=== PATIENT | male | born 1950 | race Caucasian/White ===

== ENCOUNTER 2023-12-16 13:58 | Inpatient (IN) | payer MEDICAID, SELFPAY ==
--- NOTE | ~2023-12-16 | CT_ITS ---
EXAMINATION: CT ABDOMEN AND PELVIS WITHOUT CONTRAST CLINICAL INFORMATION: Left lower quadrant pain and rectal bleeding COMPARISON: Radius head CT from 2008 TECHNIQUE: Multidetector volumetric imaging was performed from the superior aspect of the liver through the pubic symphysis. Sagittal and coronal reformatted images were obtained on the technologist's workstation. This CT examination was performed using dose optimization techniques as appropriate, variously including the following: *Automated exposure control *Adjustment of mA and/or kV according to patient size (this includes techniques or standardized protocols for targeted exams where dose is matched to indication/reason for exam; i.e. extremities or head) *Use of iterative reconstruction technique DLP: 516 mGy-cm FINDINGS: LUNG BASES: The visualized lung bases are unremarkable. LIVER, GALLBLADDER, AND BILIARY TREE: The liver is normal in size, shape, and attenuation. No focal hepatic lesion or biliary ductal dilatation is present. The gallbladder is unremarkable with no evidence of radiopaque gallstones, gallbladder wall thickening, or obvious pericholecystic inflammatory changes. PANCREAS: Unremarkable. SPLEEN: Unremarkable. ADRENAL GLANDS: Unremarkable. KIDNEYS AND URETERS: The kidneys are normal in size, shape, and attenuation. No hydronephrosis, hydroureter, or calculi seen. There is question of a left renal versus retroperitoneal cyst adjacent to the lower pole the left kidney and left psoas muscle. This measures 3.3 x 5.7 x 7 cm. This is increased in size from [address] There are small peripelvic cysts in the left kidney. The right kidney is normal. No perinephric stranding. BLADDER: Unremarkable. GASTROINTESTINAL TRACT: There are postsurgical changes to the left colon. There is abnormal wall thickening suggestive of apple core appearance in the mid transverse colon. Appearance is concerning for neoplasm. There is some stranding of the surrounding fat and small pericolic lymph nodes. There is constipation. The appendix is not seen and may have been removed. Small bowel is normal. ABDOMINAL WALL: Previous ventral hernia repair with mesh. LYMPH NODES: Normal. VASCULAR: IVC filter. PELVIC VISCERA: Unremarkable. OSSEOUS STRUCTURES: Degenerative changes of the spine. 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 CT/CT abdomen pelvis wo IV con IMPRESSION: Applecore lesion in the mid transverse colon concerning for neoplasm and stranding of the adjacent fat and small lymph nodes. Constipation. 3.5 x 6 x 7 cm left retroperitoneal cyst versus left renal cyst. This is increased in size from 2 cm from 2009 exam. Fleischner guidelines were followed.
--- NOTE | 2023-12-16 14:11 | ED.GENADULT ---
HPI - General Adult General Chief complaint: General Medical Stated complaint: Colon Mass Hemorrhoids Time Seen by Provider: 12/16/23 18:29 Source: patient Mode of arrival: ambulatory Limitations: no limitations History of Present Illness HPI narrative: Patient is 72 years old with history of colon cancer status post resection and chemotherapy in 2005 cleared by Oncology for last few week comes here for black stool off and on for last few days patient had colonoscopy on 11/28/23 at [place] which showed large nodular mass in proximal transverse colon pathology showed invasive adenocarcinoma patient comes here for further evaluation as he been feeling weak and dizzy lab workup done showed hemoglobin of 6.9 Related Data Home Medications Medication Instructions Recorded Confirmed omeprazole 20 mg tablet,delayed 20 mg PO DAILY PRN gi upset 12/16/23 12/16/23 release polyethylene glycol 3350 17 17 g PO DAILY 12/16/23 12/16/23 gram/dose oral powder (Miralax) Allergies Allergy/AdvReac Type Severity Reaction Status Date / Time No Known Allergies Allergy Verified 12/16/23 14:11 [No Known Allergies*] Review of Systems Review of Systems: Yes all other systems are reviewed and are negative [facility] Past Medical History Medical History (Updated 12/17/23 @ 01:00 by Wesley Mullins MD) Adenocarcinoma of transverse colon Surgical History (Updated 12/16/23 @ 21:06 by Newton Abdi MD) History of partial colectomy Social History Social History Smoked in Last 30 Days: No Use of substances other than those prescribed or required for medical reasons: No Advance Directives: No Advance Directives Information Provided: No Physical Exam ED Vital Signs: Vital Signs - 24 hr 12/16/23 14:13 12/16/23 18:42 12/16/23 20:56 Temperature 98 F 98.6 F 98.5 F Pulse Rate 98 93 80 Respiratory Rate 18 16 14 Blood Pressure 142/75 H 145/63 H 127/69 Pulse Oximetry 100 100 Oxygen Delivery Method Room Air Room Air 12/16/23 21:22 12/16/23 21:36 Temperature 98.3 F 98.3 F Pulse Rate 77 74 Respiratory Rate 13 17 Blood Pressure 123/66 117/65 Pulse Oximetry 99 Oxygen Delivery Method Room Air BMI result Body Mass Index 29.5 Appepallor++ ENT: Pharynx normal. Oral Mucosa moist Neck: Normal inspection. Neck supple. CVS: Normal heart rate and rhythm. Pulses normal. Respiratory: No respiratory distress. Equal air entry bilateral, no wheezing/rales/rhonchi Abdomen: Soft deep tenderness left medial abdomen Bowel sounds are present, no mass palpable, no CVA tenderness rectum: Dark stool no fresh blood guaiac positive Skin: Skin warm and dry. Normal skin color. Normal skin turgor. Extremities: No lower extremity edema. No calf tenderness Neuro: Oriented X 3. No motor deficit. No sensory deficit.No cerebellar signs , cranial nerves II-XII intact Course Course Course Narrative: RME:?72 yo south su[place]ese speaking male here, distant hx of colon CA, with for eval of black stool, dizziness, wt loss and left sided abd pain x months. recent colonoscopy performed in [place] showing large obstructing mass over 80%, friable. Pathologic diagnosis is invasive adenocarcinoma. sister at bedside received this report and immediately brought him to ED. labs, OBS, +/- imaging per primary provider. Full HPI, ROS and PE to be performed by the primary ED provider. Medications Administered Generic Name Dose Route Start Last Admin Trade Name Freq PRN Reason Stop Dose Admin Sodium Chloride 1,000 mls @ 100 mls/hr 12/16/23 22:00 12/16/23 23:46 Ns IVCONT 100 mls/hr .Q10H [facility] Administration Sodium Chloride 3 ml 12/17/23 00:00 12/17/23 01:06 0.9 % Sodium Chloride Flush 3 Ml Syringe IVFLUSH Not Given QSHIFT [facility] Discontinued Medications Generic Name Dose Route Start Last Admin Trade Name Freq PRN Reason Stop Dose Admin Sodium Chloride 100 mls @ 100 mls/hr 12/16/23 18:48 12/17/23 00:40 Ns IV 12/16/23 19:47 Infused ONCE ONE Infusion Pantoprazole Sodium 80 mg 12/16/23 18:49 12/16/23 20:23 Pantoprazole Sodium 40 Mg/10 Ml Vial IVPUSH 12/16/23 18:50 80 mg ONCE ONE Administration Medical Decision Making Medical Decision Making [facility] Narrative: Patient with recurrence of adenocarcinoma of colon with rectal bleed with significant anemia will admit plan for surgical consultation will give 2 units of blood admit to medical service Differential Diagnosis Differential Diagnoses: The differential diagnosis associated with the presentation includes Colon cancer/peptic ulcer disease Admission/Observation Consideration of admission/observation: Escalation of care including admission/observation considered Consult Healthcare Provider Management of the patient was discussed with: Hospitalist Lab Data MDM Lab Attestation statement: I reviewed the patient's lab results. 12/16/23 14:32 12/16/23 14:32 Labs: Lab Results 12/16/23 12/16/23 12/16/23 Range/Units 14:32 19:05 19:16 WBC 9.5 (4.8-10.8) X10*3/uL RBC 4.28 L (4.60-5.80) X10*6/uL Hgb 6.9 L* (14.0-18.0) g/dl Hct 25.6 L (42.0-52.0) % MCV 59.8 L (80.0-98.0) fL MCH 16.1 L (27.0-33.0) pg MCHC 27.0 L (31.0-36.0) g/dl RDW 21.2 H (11.0-16.0) % Plt Count 347 (160-400) X10*3/uL MPV 9.2 L (9.4-12.4) fL Immature Gran % (Auto) 0.4 (0.0-0.4) % Neut % (Auto) 63.3 (45-73) % Lymph % (Auto) 23.9 (20-40) % [place] % (Auto) 9.1 (2-11) % Eos % (Auto) 2.9 (0-4) % Baso % (Auto) 0.4 (0-2) % Lymph # (Auto) 2.3 (1.2-4.9) X10*3/uL [place] # (Auto) 0.9 (0.1-1.2) X10*3/uL Eos # (Auto) 0.3 (0.0-0.4) X10*3/uL Baso # (Auto) 0.0 (0.0-0.2) X10*3/uL Abs Immat Gran (auto) 0.04 H (0.00-0.03) X10*3/uL Absolute Neuts (auto) 6.0 (2.0-8.3) x10*3/uL Absolute Nucleated RBC 0.000 (0.0-0.012) X10*3/uL Nucleated RBC % (auto) 0.0 (0.0-0.2) /100WBC PT 13.7 H (11.1-13.3) SEC INR 1.1 (0.9-1.1) Sodium 140 (135-145) mmol/L Potassium 4.3 (3.3-5.1) mmol/L Chloride 109 H (96-108) mmol/L Carbon Dioxide 25 (22-29) mmol/L Anion Gap 10 L (12-20) BUN 17 H (9-16) mg/dL Creatinine 0.99 (0.5-1.4) mg/dL Estim Creat Clear Calc 70.1 Estimated GFR > 60 Random Glucose 147 H (60-115) mg/dL Calcium 8.7 (8.4-10.2) mg/dL Magnesium 2.2 (1.6-2.6) mg/dL Iron 10 L (45-160) mcg/dL TIBC 329 (228-428) mcg/dL % Saturation 3 L (15-50) % Unsat Iron Binding 319 ug/dL Total Bilirubin 0.9 (0.0-1.0) mg/dL AST 15 (5-37) U/L ALT 9 (0-40) U/L Alkaline Phosphatase 73 (39-117) U/L Total Protein 7.2 (6.5-8.0) g/dL Albumin 3.8 (3.5-5.0) g/dL Lipase 19 (8-78) U/L Stool Occult Blood POSITIVE (NEGATIVE) Blood Type O Positive Antibody Screen NEGATIVE Crossmatch See Detail Radiology Impression Discussion of test interpretation with radiology: I have reviewed the radiologist's reading. Radiologist Impression: CT/CT abdomen pelvis wo IV con IMPRESSION: Applecore lesion in the mid transverse colon concerning for neoplasm and stranding of the adjacent fat and small lymph nodes. Constipation. 3.5 x 6 x 7 cm left retroperitoneal cyst versus left renal cyst. This is increased in size from 2 cm from 2009 exam. Fleischner guidelines were follow Discharge Plan Discharge Clinical Impression: Adenocarcinoma, Severe anemia GI (gastrointestinal bleed) Qualifiers: GI bleed type/associated pathology: unspecified gastrointestinal hemorrhage type Qualified Code(s): K92.2 - Gastrointestinal hemorrhage, unspecified Patient Disposition: Admitted As Inpatient
[2023-12-16 14:13] VITALS: BP 142/75; PULSE 98; RESP 18; TEMP 36.6; O2SAT 100; BMI 29.5
[2023-12-16 14:38] LABS: MANUAL DIFF FLAG NO
[2023-12-16 14:40] LABS: Basophils Percent Auto 0.4 % (0-2); Eosinophils Absolute Auto 0.3 X10*3/uL (0.0-0.4); Eosinophils Percent Auto 2.9 % (0-4); Hematocrit 25.6 % (42.0-52.0); Imm Gran Abs Auto 0.04 X10*3/uL (0.00-0.03); Imm Gran Pct Auto 0.4 % (0.0-0.4); Lymphocytes Absolute Auto 2.3 X10*3/uL (1.2-4.9); Lymphocytes Percent Auto 23.9 % (20-40); Mean Corpuscular Hemoglobin 16.1 pg (27.0-33.0); Mean Platelet Volume 9.2 fL (9.4-12.4); Monocytes Absolute Auto 0.9 X10*3/uL (0.1-1.2); Monocytes Percent Auto 9.1 % (2-11); Neutrophils Percent Auto 63.3 % (45-73); Platelet Count 347 X10*3/uL (160-400); Red Blood Count 4.28 X10*6/uL (4.60-5.80); Red Cell Distribution Width 21.2 % (11.0-16.0); White Blood Count 9.5 X10*3/uL (4.8-10.8)
[2023-12-16 14:44] LABS: INTERNATIONAL NORM RATIO 1.1 (0.9-1.1); Prothrombin Time 13.7 SEC (11.1-13.3)
[2023-12-16 14:45] LABS: Hemoglobin 6.9 g/dl (14.0-18.0); Mean Corpuscular Volume 59.8 fL (80.0-98.0)
[2023-12-16 14:56] LABS: Alanine Aminotransferase 9 U/L (0-40); Albumin Level 3.8 g/dL (3.5-5.0); Alkaline Phosphatase 73 U/L (39-117); Anion Gap 10 (12-20); Aspartate Amino Transferase 15 U/L (5-37); Bilirubin Total 0.9 mg/dL (0.0-1.0); Blood Urea Nitrogen 17 mg/dL (9-16); Calcium 8.7 mg/dL (8.4-10.2); Carbon Dioxide 25 mmol/L (22-29); Chloride 109 mmol/L (96-108); Creatinine Clr Calc Pharmacy 70.1; Estimated Glomerular Filt Rate > 60; Glucose Random 147 mg/dL (60-115); Lipase 19 U/L (8-78); Magnesium 2.2 mg/dL (1.6-2.6); Potassium 4.3 mmol/L (3.3-5.1); Sodium 140 mmol/L (135-145); Total Protein 7.2 g/dL (6.5-8.0)
[2023-12-16 18:42] VITALS: BP 145/63; PULSE 93; RESP 16; TEMP 37; O2SAT 100
[2023-12-16 19:10] LABS: OBS Int Ctl Valid YES; OBS1 POSITIVE (NEGATIVE)
[2023-12-16 19:12] LABS: Iron 10 mcg/dL (45-160); Percent Iron Saturation 3 % (15-50); Total Iron Binding Capacity 329 mcg/dL (228-428); Unsaturated Iron Binding 319 ug/dL
--- NOTE | 2023-12-16 19:21 | PHA.MEDREC ---
Pharmacy Consult ? Medication Reconciliation Pharmacy has completed the medication reconciliation. Patient only takes miralax every day. Loretta Tirado, CherelleD
--- NOTE | 2023-12-16 19:33 | PC.NURSE ---
This RN took over pt care @ 1900. Pt resting in bed comfortably. Family at bedside. Plan of care ongoing.
[2023-12-16] MEDS: Pantoprazole Sodium 40 MG/10 ML VIAL 80 MG IVPUSH (20:23)
[2023-12-16 20:56] VITALS: BP 127/69; PULSE 80; RESP 14; TEMP 36.9
[2023-12-16 21:22] VITALS: BP 123/66; PULSE 77; RESP 13; TEMP 36.8
[2023-12-16 21:36] VITALS: BP 117/65; PULSE 74; RESP 17; TEMP 36.8; O2SAT 99
[2023-12-16 23:32] VITALS: BP 111/63; PULSE 67; RESP 18; TEMP 36.6; O2SAT 100
[2023-12-16] MEDS: 0.9 % Sodium Chloride 1,000 ML 100 ML IVCONT (23:46)
[2023-12-17] VITALS (12 sets, daily range): BP systolic 111–149; BP diastolic 58–80; PULSE 63–95; RESP 14–20; TEMP 36–36.8; O2SAT 94–100; BMI 29.5
--- NOTE | 2023-12-17 00:37 | P.HPHOSP_ITS ---
History of Present Illness Date of Service: 12/16/23 Attending physician on admission: Wesley Mullins Chief Complaint: Dizziness Arron Duff is a 72 years old man with past medical history significant for colon CA status post resection (s/p colostomy bag --> reanastomosis s/p chemotherapy in 2005) and GERD presents to the emergency department complaining of dizziness over the last few days. His sister who was at bedside commented that she noted he is very pale. The patient denies any headache, weakness, abdominal pain, nausea, vomiting or diarrhea. He denied black stools. Last bowel movement was this morning and was normal. There is no fever or chills reported. He denies any chest pain or shortness on breath. Denied weight loss. He denied any acute urinary symptoms. On November 28 of this year he underwent a colonoscopy and was found to have a large obstructing mass (>80%). Biopsy is consistent with invasive adenocarcinoma. In the ED, he was found to have normal vital signs. Blood workup is remarkable for hemoglobin 6.9 and hematocrit 25.6. There are no significant electrolyte imbalances. Glucose 147. Stool for occult blood is positive. ED tx: Pantoprazole 80 mg IV, NS 2 L bolus. Two units PRBCs ordered. Review of Systems 2 Review of Systems: All 12 systems were reviewed and normal except as noted in HPI. [facility] Medical History (Updated 12/17/23 @ 01:00 by Wesley Mullins MD) Adenocarcinoma of transverse colon Surgical History (Updated 12/16/23 @ 21:06 by Newton Abdi MD) History of partial colectomy Social History Smoked in Last 30 Days: No Use of substances other than those prescribed or required for medical reasons: No Advance Directives: No Advance Directives Information Provided: No Meds Allergies Allergy/AdvReac Type Severity Reaction Status Date / Time No Known Allergies Allergy Verified 12/16/23 14:11 [No Known Allergies*] Active Medications: Current Medications Sodium Chloride (Ns) 1,000 mls @ 100 mls/hr IVCONT .Q10H [facility] Last Admin: 12/16/23 23:46 Dose: 100 mls/hr Pantoprazole Sodium (Pantoprazole Sodium 40 Mg/10 Ml Vial) 40 mg IVPUSH Q12H [facility] Sodium Chloride (0.9 % Sodium Chloride Flush 3 Ml Syringe) 3 ml IVFLUSH QSHIFT [facility] Home Medications Medication Instructions Recorded Confirmed Last Taken Type omeprazole 20 mg tablet,delayed 20 mg PO DAILY PRN gi upset 12/16/23 12/16/23 Unknown History release polyethylene glycol 3350 17 17 g PO DAILY 12/16/23 12/16/23 12/15/23 History gram/dose oral powder (Miralax) Physical Exam 2 Vital Signs and Narrative: Vital Signs: Last Vital Signs Temp 97.9 F 12/16/23 23:32 Pulse 67 12/16/23 23:32 Resp 18 12/16/23 23:32 BP 111/63 12/16/23 23:32 Pulse Ox 100 12/16/23 23:32 O2 Del Method Room Air 12/16/23 23:32 BMI result Body Mass Index 29.5 Constitutional - Awake and Alert, No apparent distress. Pale. Cooperative. Pleasant. HEENT - Pupils equally round. No scleral icterus. Pale conjunctivae. Moist oral mucosa. Heart - RRR (+) murmur. Heart - Normal lung expansion, Normal respiratory effort, No respiratory distress, CTA bilaterally Abdomen - Multiple surgical scars noted NT / ND; +BS; No rebound or guarding Extremities - no calf tenderness bilaterally, no swelling Musculoskeletal - Normal inspection, normal ROM Skin - Warm/Dry Neurological - Alert & oriented x3. No focal weakness noted. Normal speech. Normal behavior. Psychological - Appropriate affect Results Labs 12/16/23 14:32 12/16/23 14:32 Labs: Laboratory Results - last 24 hr 12/16/23 12/16/23 12/16/23 14:32 19:05 19:16 MCV 59.8 L MCH 16.1 L MCHC 27.0 L RDW 21.2 H Plt Count 347 MPV 9.2 L Immature Gran % (Auto) 0.4 Neut % (Auto) 63.3 Lymph % (Auto) 23.9 [place] % (Auto) 9.1 Eos % (Auto) 2.9 Baso % (Auto) 0.4 Lymph # (Auto) 2.3 [place] # (Auto) 0.9 Eos # (Auto) 0.3 Baso # (Auto) 0.0 Abs Immat Gran (auto) 0.04 H Absolute Neuts (auto) 6.0 Absolute Nucleated RBC 0.000 Nucleated RBC % (auto) 0.0 PT 13.7 H INR 1.1 Anion Gap 10 L Estim Creat Clear Calc 70.1 Estimated GFR > 60 Random Glucose 147 H Calcium 8.7 Magnesium 2.2 Iron 10 L TIBC 329 % Saturation 3 L Unsat Iron Binding 319 Total Bilirubin 0.9 AST 15 ALT 9 Alkaline Phosphatase 73 Total Protein 7.2 Albumin 3.8 Lipase 19 Stool Occult Blood POSITIVE Blood Type O Positive Antibody Screen NEGATIVE Crossmatch See Detail Imaging Radiologist's Impressions: Impressions Abdomen/Pelvis CT 12/16/23 19:38 IMPRESSION: Applecore lesion in the mid transverse colon concerning for neoplasm and stranding of the adjacent fat and small lymph nodes. Constipation. 3.5 x 6 x 7 cm left retroperitoneal cyst versus left renal cyst. This is increased in size from 2 cm from 2009 exam. Fleischner guidelines were followed. Assessment and Plan (1) Severe anemia: Status: Acute (2) GI (gastrointestinal bleed): Qualifiers: GI bleed type/associated pathology: unspecified gastrointestinal hemorrhage type Qualified Code(s): K92.2 - Gastrointestinal hemorrhage, unspecified Status: Acute (3) Adenocarcinoma: Status: Acute (4) GERD (gastroesophageal reflux disease): Qualifiers: Esophagitis presence: without esophagitis Qualified Code(s): K21.9 - Gastro-esophageal reflux disease without esophagitis Status: Acute Plan Arron Duff is a 72 years old man with past medical history significant for colon CA status post resection (s/p colostomy bag --> reanastomosis s/p chemotherapy) admitted with: * Symptomatic blood loss anemia likely GI bleeding due to invasive adenocarcinoma (transverse colon). Admit to hospitalist service. Keep NPO. Telemetry. Continue to monitor H&H. PRBC transfusion as needed to keep hemoglobin > 7. Continue treatment with Protonix 40 mg IV every 12 hours. GI, oncology and surgery consults. * GERD. PPI IV. DVT prophylaxis: SCDs Code status: Full Patient will need hospitalization for at least 2 midnights for symptomatic anemia treatment with blood transfusions. Patient also need evaluation by multiple specialties/subspecialties for invasive adenocarcinoma evaluation and treatment. Quality Stroke Does the patient have a stroke diagnosis?: No VTE Prior VTE?: No VTE Risk Level:: Medical - moderate - high VTE Device Contraindication: N/A - Device Ordered VTE Drug Contraindication: Treatment Not Indicated
--- NOTE | 2023-12-17 06:43 | PC.NURSE ---
Pts sister Daija can be reached @ [phone]
[2023-12-17 08:05] LABS: Hematocrit 29.2 % (42.0-52.0); Hemoglobin 8.3 g/dl (14.0-18.0); Mean Corpuscular HGB Conc 28.4 g/dl (31.0-36.0); Mean Platelet Volume 9.5 fL (9.4-12.4); Platelet Count 295 X10*3/uL (160-400); Red Blood Count 4.61 X10*6/uL (4.60-5.80); Red Cell Distribution Width 26.1 % (11.0-16.0); White Blood Count 7.6 X10*3/uL (4.8-10.8)
[2023-12-17 08:06] LABS: Mean Corpuscular Volume 63.3 fL (80.0-98.0)
[2023-12-17 08:10] LABS: Anion Gap 12 (12-20); Blood Urea Nitrogen 16 mg/dL (9-16); Calcium 8.1 mg/dL (8.4-10.2); Carbon Dioxide 23 mmol/L (22-29); Chloride 109 mmol/L (96-108); Creatinine Clr Calc Pharmacy 83.7; Estimated Glomerular Filt Rate > 60; Glucose Random 98 mg/dL (60-115); Potassium 4.2 mmol/L (3.3-5.1); Sodium 140 mmol/L (135-145)
--- NOTE | 2023-12-17 08:32 | PM.GICN ---
History of Present Illness Data of Consult Service Date: 12/17/23 Primary Care Provider: eNlson Estevez MD HPI Reason for consult: colon cancer 72 years old man with past medical history significant for colon cancer status post resection (s/p colostomy bag --> reanastomosis s/p chemotherapy in 2005) and GERD who I am seeing for assessment for colon cancer patient was brought to hospital by sister due to c/o dizziness. He had labs checked and HGb was 7 g/dl. He apparently had colonoscopy in [place] few weeks ago which revealed a colon mass with path consistent with invasive adenoca. HE denies headache, weakness, abdominal pain, nausea, vomiting or diarrhea. He denied black stools. Last bowel movement was normal. There is no fever or chills reported. He denies any chest pain or shortness on breath. Denied weight loss. He denied any acute urinary symptoms. Review of Systems Review of Systems: Constitutional : No Weight loss, No Fever, No Chills ENT/Mouth : No sore throat, No Rhinorrhea Eyes: No Swelling, No Redness Cardiovascular : No Chest Pain, No SOB, No Edema Respiratory : No Cough, No Sputum, No Wheezing Gastrointestinal : see HPI Genitourinary : NO Dysuria, No Urinary Frequency, No Hematuria, No Urgency Musculoskeletal : No joint pain, No Myalgias, No Joint Swelling Skin : No Skin Lesions, No rash Neuro : No Weakness, No Numbness, + Dizziness, No Headache Psych : No Anxiety/Panic, No Depression Heme/Lymph: No Bruising, No Lymphadenopathy Endocrine : No Polyuria, No Polydipsia All other systems reviewed and are negative. [facility] Past Medical History Medical History Adenocarcinoma of transverse colon Family History Pertinent family history: several family members with colon polyps Surgical History Surgical History History of partial colectomy Social History Social History Household Members: Family Housing: House Do you presently have visiting nurse or other home services: No Patient Tobacco Use Status: Never used Tobacco Meds Allergies Allergy/AdvReac Type Severity Reaction Status Date / Time No Known Allergies Allergy Verified 12/16/23 14:11 [No Known Allergies*] Active Medications: Current Medications Sodium Chloride (Ns) 1,000 mls @ 100 mls/hr IVCONT .Q10H [facility] Last Admin: 12/16/23 23:46 Dose: 100 mls/hr Pantoprazole Sodium (Pantoprazole Sodium 40 Mg/10 Ml Vial) 40 mg IVPUSH Q12H [facility] Sodium Chloride (0.9 % Sodium Chloride Flush 3 Ml Syringe) 3 ml IVFLUSH QSHIFT [facility] Last Admin: 12/17/23 01:06 Dose: Not Given Home Medications Medication Instructions Recorded Confirmed Last Taken Type omeprazole 20 mg tablet,delayed 20 mg PO DAILY PRN gi upset 12/16/23 12/16/23 Unknown History release polyethylene glycol 3350 17 17 g PO DAILY 12/16/23 12/16/23 12/15/23 History gram/dose oral powder (Miralax) Physical Exam Vital Signs: Vital Signs: Last Vital Signs Temp 98.0 F 12/17/23 07:42 Pulse 70 12/17/23 07:42 Resp 16 12/17/23 07:42 BP 111/58 L 12/17/23 07:42 Pulse Ox 99 12/17/23 07:32 O2 Del Method Room Air 12/17/23 07:32 BMI result Body Mass Index 29.5 EXAM: GENERAL: The patient is well developed and nontoxic. VITAL SIGNS:see workflow HEENT: Nonicteric sclerae, PERRLA, EOMI. Oropharynx clear. Moist mucous membranes. Conjunctivae appear well perfused. No thyroid mass. CHEST: Chest wall is nontender. HEART: Regular rate and rhythm without murmurs. LUNGS: Clear to auscultation bilaterally. ABDOMEN: Soft, positive bowel sounds, nontender, no organomegaly.no flank tenderness SKIN: No rash, no excessive bruising, petechiae, or purpura. NEUROLOGIC: Cranial nerves II-XII intact without motor/sensory deficit. Psych: Appearance: grossly normal Results Labs 12/17/23 07:43 12/17/23 07:43 Labs: Short CBC 12/16/23 12/17/23 Range/Units 14:32 07:43 WBC 9.5 7.6 (4.8-10.8) X10*3/uL Hgb 6.9 L* 8.3 L D (14.0-18.0) g/dl Hct 25.6 L 29.2 L (42.0-52.0) % Plt Count 347 295 (160-400) X10*3/uL BMP 12/16/23 12/17/23 14:32 07:43 Sodium 140 140 Potassium 4.3 4.2 Chloride 109 H 109 H Carbon Dioxide 25 23 BUN 17 H 16 Creatinine 0.99 0.83 Calcium 8.7 8.1 L D Liver Function 12/16/23 Range/Units 14:32 Total Bilirubin 0.9 (0.0-1.0) mg/dL AST 15 (5-37) U/L ALT 9 (0-40) U/L Alkaline Phosphatase 73 (39-117) U/L Albumin 3.8 (3.5-5.0) g/dL Imaging CT scan - abdomen: Attestation: I personally reviewed and interpreted this imaging study as follows: (apple core lesion in distal-mid transverse colon) Assessment and Plan (1) Colon cancer: Qualifiers: Colon location: transverse Qualified Code(s): C18.4 - Malignant neoplasm of transverse colon Status: Acute (2) Severe anemia: Status: Acute Plan 1/ Recurrent CRC with recent colonoscopy and apple core lesion on imaging -no symptoms of obstruction. Aenmia is most likely due to blood loss from the colon mass. PLAN: 1/ Transfuse as doing-target HGB 9 g/dl 2/ await surgical and onc input, re: resection vs neoadjuvant chemo and delayed surgery 3/ at this time, no need for colonoscopy unless surgery and onc request a repeat scope for sampling and marking of tumour or for stent placement 4/ avoid hard meats, keep on low fiber diet, laxatives and avoid constipation Procedures Date of Service Date of Service: 12/17/23
[2023-12-17] MEDS: 0.9 % Sodium Chloride Flush 3 ML SYRINGE IVFLUSH (09:07)
[2023-12-17] MEDS: 0.9 % Sodium Chloride 1,000 ML 100 ML IVCONT ×2 (09:08→18:33)
--- NOTE | 2023-12-17 10:08 | P.PNIM_ITS ---
Subjective Subjective Date of Service: 12/17/23 Interval History: Seen and evaluated this morning denies any fever or chills no reported bleeding overnight Hb improved to 8.3 after transfusion Review of Systems Review of Systems: Yes all other systems are reviewed and are negative Physical Exam 2 Vital Signs: Vital Signs: Last Vital Signs Temp 98.2 F 12/17/23 10:06 Pulse 79 12/17/23 10:06 Resp 14 12/17/23 10:06 BP 137/80 12/17/23 10:06 Pulse Ox 100 12/17/23 10:06 O2 Del Method Room Air 12/17/23 10:06 BMI result Body Mass Index 29.5 Const: Other: Constitutional : Awake, interactive, not in distress Neck : Normal inspection, Supple Cardiovascular : RRR, no JVP, no lower extremity edema Respiratory : good bilateral air entry, no crackles, wheezes or rhonchi Gastrointestinal: soft, lax, Normal bowel sounds, Non tender Skin : Warm, Dry Neurological : Alert & oriented x3, No focal deficit Objective Data Active Medications Sodium Chloride (Ns) 1,000 mls @ 100 mls/hr IVCONT .Q10H [facility] Last Admin: 12/17/23 09:08 Dose: 100 mls/hr Documented By: BONNIE Pantoprazole Sodium (Pantoprazole Sodium 40 Mg/10 Ml Vial) 40 mg IVPUSH Q12H [facility] Sodium Chloride (0.9 % Sodium Chloride Flush 3 Ml Syringe) 3 ml IVFLUSH QSHIFT [facility] Last Admin: 12/17/23 09:07 Dose: 3 ml Documented By: BONNIE Labs 12/17/23 07:43 12/17/23 07:43 Labs: Laboratory Results - last 24 hr 12/16/23 12/16/23 12/16/23 14:32 19:05 19:16 MCV 59.8 L MCH 16.1 L MCHC 27.0 L RDW 21.2 H Plt Count 347 MPV 9.2 L Immature Gran % (Auto) 0.4 Neut % (Auto) 63.3 Lymph % (Auto) 23.9 [place] % (Auto) 9.1 Eos % (Auto) 2.9 Baso % (Auto) 0.4 Lymph # (Auto) 2.3 [place] # (Auto) 0.9 Eos # (Auto) 0.3 Baso # (Auto) 0.0 Abs Immat Gran (auto) 0.04 H Absolute Neuts (auto) 6.0 Absolute Nucleated RBC 0.000 Nucleated RBC % (auto) 0.0 PT 13.7 H INR 1.1 Anion Gap 10 L Estim Creat Clear Calc 70.1 Estimated GFR > 60 Random Glucose 147 H Calcium 8.7 Magnesium 2.2 Iron 10 L TIBC 329 % Saturation 3 L Unsat Iron Binding 319 Total Bilirubin 0.9 AST 15 ALT 9 Alkaline Phosphatase 73 Total Protein 7.2 Albumin 3.8 Lipase 19 Stool Occult Blood POSITIVE Blood Type O Positive Antibody Screen NEGATIVE Crossmatch See Detail 12/17/23 07:43 MCV 63.3 L MCH 18.0 L MCHC 28.4 L RDW 26.1 H Plt Count 295 MPV 9.5 Immature Gran % (Auto) Neut % (Auto) Lymph % (Auto) [place] % (Auto) Eos % (Auto) Baso % (Auto) Lymph # (Auto) [place] # (Auto) Eos # (Auto) Baso # (Auto) Abs Immat Gran (auto) Absolute Neuts (auto) Absolute Nucleated RBC 0.000 Nucleated RBC % (auto) 0.0 PT INR Anion Gap 12 Estim Creat Clear Calc 83.7 Estimated GFR > 60 Random Glucose 98 Calcium 8.1 L D Magnesium Iron TIBC % Saturation Unsat Iron Binding Total Bilirubin AST ALT Alkaline Phosphatase Total Protein Albumin Lipase Stool Occult Blood Blood Type Antibody Screen Crossmatch Assessment and Plan (1) Colon cancer: Status: Acute (2) Severe anemia: Status: Acute (3) GI (gastrointestinal bleed): Status: Acute Plan Arron Duff is a 72 years old man with past medical history significant for colon CA status post resection (s/p colostomy bag --> reanastomosis s/p chemotherapy) admitted with: # Symptomatic acute blood loss anemia likely GI bleeding due to 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 Protonix 40 mg IV bid GI, oncology and surgery consults for treatment plan, the patient will need PET scan for staging of the disease as outpatient # GERD on PPI IV for now DVT prophylaxis: SCDs Code status: Full Patient will need hospitalization for at least 2 midnights for symptomatic anemia treatment with blood transfusions. Patient also need evaluation by multiple specialties/subspecialties for invasive adenocarcinoma evaluation and treatment. Quality Stroke Does the patient have a stroke diagnosis?: No VTE Prior VTE?: No VTE Risk Level:: Medical - moderate - high VTE Device Contraindication: N/A - Device Ordered VTE Drug Contraindication: Treatment Not Indicated
--- NOTE | 2023-12-17 10:40 | P.CONGS_ITS ---
History of Present Illness Consult details Consult date: 12/17/23 Narrative: Patient being evaluated for severe anemia and had recent colonoscopy demonstrated transverse colonic mass. CT scan confirms findings. Patient has very involved the post surgical history including bowel resection with ostomy with ostomy revision done many years ago at [facility] but these records are not available in the chart system. Chart was reviewed patient evaluated with translator and interpreter [email or web address] Past Medical History Medical History Adenocarcinoma of transverse colon Surgical History Surgical History History of partial colectomy Social History Social History Household Members: Family Housing: House Do you presently have visiting nurse or other home services: No Patient Tobacco Use Status: Never used Tobacco Meds Allergies Allergy/AdvReac Type Severity Reaction Status Date / Time No Known Allergies Allergy Verified 12/16/23 14:11 [No Known Allergies*] Active Medications: Current Medications Sodium Chloride (Ns) 1,000 mls @ 100 mls/hr IVCONT .Q10H [facility] Last Admin: 12/17/23 09:08 Dose: 100 mls/hr Pantoprazole Sodium (Pantoprazole Sodium 40 Mg/10 Ml Vial) 40 mg IVPUSH Q12H [facility] Sodium Chloride (0.9 % Sodium Chloride Flush 3 Ml Syringe) 3 ml IVFLUSH QSHIFT [facility] Last Admin: 12/17/23 09:07 Dose: 3 ml Home Medications Medication Instructions Recorded Confirmed Last Taken Type omeprazole 20 mg tablet,delayed 20 mg PO DAILY PRN gi upset 12/16/23 12/16/23 Unknown History release polyethylene glycol 3350 17 17 g PO DAILY 12/16/23 12/16/23 12/15/23 History gram/dose oral powder (Miralax) Physical Exam 2 Vital Signs: Vital Signs: Last Vital Signs Temp 98.2 F 12/17/23 10:06 Pulse 79 12/17/23 10:06 Resp 14 12/17/23 10:06 BP 137/80 12/17/23 10:06 Pulse Ox 100 12/17/23 10:06 O2 Del Method Room Air 12/17/23 10:06 BMI result Body Mass Index 29.5 Chest: Other: Chest breath sounds bilaterally. GI: Other: Upper midline and ostomy scars right upper quadrant. Abdomen soft, nontender, benign. Results Labs 12/18/23 07:04 12/18/23 07:04 Labs: Abnormal lab results 12/16/23 12/16/23 12/17/23 Range/Units 14:32 19:16 07:43 RBC 4.28 L (4.60-5.80) X10*6/uL Hgb 6.9 L* 8.3 L D (14.0-18.0) g/dl Hct 25.6 L 29.2 L (42.0-52.0) % MCV 59.8 L 63.3 L (80.0-98.0) fL MCH 16.1 L 18.0 L (27.0-33.0) pg MCHC 27.0 L 28.4 L (31.0-36.0) g/dl RDW 21.2 H 26.1 H (11.0-16.0) % MPV 9.2 L (9.4-12.4) fL Abs Immat Gran (auto) 0.04 H (0.00-0.03) X10*3/uL PT 13.7 H (11.1-13.3) SEC Chloride 109 H 109 H (96-108) mmol/L Anion Gap 10 L (12-20) BUN 17 H (9-16) mg/dL Random Glucose 147 H (60-115) mg/dL Calcium 8.1 L D (8.4-10.2) mg/dL Iron 10 L (45-160) mcg/dL % Saturation 3 L (15-50) % Crossmatch See Detail Short CBC 12/16/23 12/17/23 Range/Units 14:32 07:43 WBC 9.5 7.6 (4.8-10.8) X10*3/uL Hgb 6.9 L* 8.3 L D (14.0-18.0) g/dl Hct 25.6 L 29.2 L (42.0-52.0) % Plt Count 347 295 (160-400) X10*3/uL BMP 12/16/23 12/17/23 14:32 07:43 Sodium 140 140 Potassium 4.3 4.2 Chloride 109 H 109 H Carbon Dioxide 25 23 BUN 17 H 16 Creatinine 0.99 0.83 Calcium 8.7 8.1 L D Liver Function 12/16/23 Range/Units 14:32 Total Bilirubin 0.9 (0.0-1.0) mg/dL AST 15 (5-37) U/L ALT 9 (0-40) U/L Alkaline Phosphatase 73 (39-117) U/L Albumin 3.8 (3.5-5.0) g/dL All other labs normal. Assessment and Plan (1) Colon cancer: Qualifiers: Colon location: transverse Qualified Code(s): C18.4 - Malignant neoplasm of transverse colon Status: Acute (2) Severe anemia: Status: Acute (3) GI (gastrointestinal bleed): Qualifiers: GI bleed type/associated pathology: unspecified gastrointestinal hemorrhage type Qualified Code(s): K92.2 - Gastrointestinal hemorrhage, unspecified Status: Acute (4) Adenocarcinoma: Status: Acute Plan Patient has history of colon cancer with prior surgery at ostomy. Now presents with a new transverse colonic obstructing bleeding mass which will require ventral surgical intervention. In the meantime, patient is undergoing general restorative measures and blood transfusions as needed. We will follow. Procedures Date of Service Date of Service: 12/18/23
[2023-12-17] MEDS: Pantoprazole Sodium 40 MG/10 ML VIAL IVPUSH (21:34)
[2023-12-18] VITALS (8 sets, daily range): BP systolic 122–147; BP diastolic 70–74; PULSE 75–98; RESP 16–20; TEMP 36.4–37.4; O2SAT 98–99
[2023-12-18] MEDS: 0.9 % Sodium Chloride 1,000 ML 100 ML IVCONT ×2 (04:35→14:32)
[2023-12-18 07:37] LABS: Hemoglobin 8.4 g/dl (14.0-18.0)
[2023-12-18 07:39] LABS: Hematocrit 29.6 % (42.0-52.0); Mean Corpuscular HGB Conc 28.4 g/dl (31.0-36.0); Mean Platelet Volume 9.8 fL (9.4-12.4); Platelet Count 309 X10*3/uL (160-400); Red Blood Count 4.66 X10*6/uL (4.60-5.80); Red Cell Distribution Width 26.2 % (11.0-16.0)
[2023-12-18] MEDS: 0.9 % Sodium Chloride Flush 3 ML SYRINGE IVFLUSH ×2 (07:39→14:35)
[2023-12-18] MEDS: Pantoprazole Sodium 40 MG/10 ML VIAL IVPUSH ×2 (07:39→22:25)
[2023-12-18 07:45] LABS: Mean Corpuscular Volume 63.5 fL (80.0-98.0); PLT ABN DIST 1
[2023-12-18 08:12] LABS: Anion Gap 10 (12-20); Blood Urea Nitrogen 14 mg/dL (9-16); Carbon Dioxide 23 mmol/L (22-29); Chloride 111 mmol/L (96-108); Creatinine Clr Calc Pharmacy 82.7; Estimated Glomerular Filt Rate > 60; Glucose Random 95 mg/dL (60-115); Potassium 3.9 mmol/L (3.3-5.1); Sodium 140 mmol/L (135-145)
--- NOTE | 2023-12-18 10:48 | P.PNIM_ITS ---
Subjective Subjective Date of Service: 12/18/23 Interval History: Seen and evaluated this morning denies any fever or chills no reported bleeding overnight Hb improved to 8.6 after transfusion Review of Systems Review of Systems: Yes all other systems are reviewed and are negative Physical Exam 2 Vital Signs: Vital Signs: Last Vital Signs Temp 97.5 F 12/18/23 07:58 Pulse 77 12/18/23 07:58 Resp 20 12/18/23 07:58 BP 127/72 12/18/23 07:58 Pulse Ox 99 12/18/23 07:58 O2 Del Method Room Air 12/18/23 07:58 BMI result Body Mass Index 29.5 Const: Other: Constitutional : Awake, interactive, not in distress Neck : Normal inspection, Supple Cardiovascular : RRR, no JVP, no lower extremity edema Respiratory : good bilateral air entry, no crackles, wheezes or rhonchi Gastrointestinal: soft, lax, Normal bowel sounds, Non tender Skin : Warm, Dry Neurological : Alert & oriented x3, No focal deficit Objective Data Active Medications Sodium Chloride (Ns) 1,000 mls @ 100 mls/hr IVCONT .Q10H [facility] Last Admin: 12/18/23 04:35 Dose: 100 mls/hr Documented By: TOD Pantoprazole Sodium (Pantoprazole Sodium 40 Mg/10 Ml Vial) 40 mg IVPUSH Q12H [facility] Last Admin: 12/18/23 07:39 Dose: 40 mg Documented By: MADISON Sodium Chloride (0.9 % Sodium Chloride Flush 3 Ml Syringe) 3 ml IVFLUSH QSHIFT [facility] Last Admin: 12/18/23 07:39 Dose: 3 ml Documented By: MADISON Labs 12/18/23 07:04 12/18/23 07:04 Labs: Laboratory Results - last 24 hr 12/18/23 07:04 MCV 63.5 L MCH 18.0 L MCHC 28.4 L RDW 26.2 H Plt Count 309 MPV 9.8 Absolute Nucleated RBC 0.000 Nucleated RBC % (auto) 0.0 Anion Gap 10 L Estim Creat Clear Calc 82.7 Estimated GFR > 60 Random Glucose 95 Calcium 8.0 L Assessment and Plan (1) Colon cancer: Status: Acute (2) Severe anemia: Status: Acute (3) Adenocarcinoma: Status: Acute (4) GI (gastrointestinal bleed): Status: Acute Plan Arron Duff is a 72 years old man with past medical history significant for colon CA status post resection (s/p colostomy bag --> reanastomosis s/p chemotherapy) admitted with: # Symptomatic acute blood loss anemia likely GI bleeding due to 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 To give another unit w Hb goal of 9 Protonix 40 mg IV bid GI waiting oncology and surgery consults for treatment plan, if Colonoscopy needed before surgery for marking the patient will need PET scan for staging of the disease as outpatient if not done # GERD on PPI IV for now DVT prophylaxis: SCDs Code status: Full Patient will need hospitalization for at least 2 midnights for symptomatic anemia treatment with blood transfusions. Patient also need evaluation by multiple specialties/subspecialties for invasive adenocarcinoma evaluation and treatment. Quality Stroke Does the patient have a stroke diagnosis?: No VTE Prior VTE?: No VTE Risk Level:: Medical - moderate - high VTE Device Contraindication: N/A - Device Ordered VTE Drug Contraindication: Treatment Not Indicated
--- NOTE | 2023-12-18 13:19 | P.PNGS_ITS ---
Subjective Subjective Date of Service: 12/18/23 Interval history: H&H 8.4/29.6. Uneventful evening. Patient receiving several blood transfusions. Physical Exam 2 Vital Signs: Vital Signs: Last Vital Signs Temp 98.1 F 12/18/23 12:19 Pulse 98 12/18/23 12:19 Resp 16 12/18/23 12:19 BP 124/73 12/18/23 12:19 Pulse Ox 99 12/18/23 11:40 O2 Del Method Room Air 12/18/23 11:40 BMI result Body Mass Index 29.5 GI: Other: Abdomen soft, benign. Multiple upper abdominal scars. Objective Data Active Medications Sodium Chloride (Ns) 1,000 mls @ 100 mls/hr IVCONT .Q10H [facility] Last Infusion: 12/18/23 11:32 Dose: 0 mls/hr Documented By: MADISON Pantoprazole Sodium (Pantoprazole Sodium 40 Mg/10 Ml Vial) 40 mg IVPUSH Q12H [facility] Last Admin: 12/18/23 07:39 Dose: 40 mg Documented By: MADISON Sodium Chloride (0.9 % Sodium Chloride Flush 3 Ml Syringe) 3 ml IVFLUSH QSHIFT [facility] Last Admin: 12/18/23 07:39 Dose: 3 ml Documented By: MADISON Labs 12/18/23 07:04 12/18/23 07:04 Labs: Laboratory Results - last 24 hr 12/16/23 12/18/23 19:16 07:04 MCV 63.5 L MCH 18.0 L MCHC 28.4 L RDW 26.2 H Plt Count 309 MPV 9.8 Absolute Nucleated RBC 0.000 Nucleated RBC % (auto) 0.0 Anion Gap 10 L Estim Creat Clear Calc 82.7 Estimated GFR > 60 Random Glucose 95 Calcium 8.0 L Blood Type O Positive Antibody Screen NEGATIVE Crossmatch See Detail Procedures Date of Service Date of Service: 12/18/23 Progress Note: A&P Assessment and plan (1) Colon cancer: Status: Acute Plan Discussed with the 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 The present time, patient is undergoing general restorative measures and will tentatively plan for mid week surgery proceeded by bowel prep. Patient understands and all questions answered. To follow closely. We will attempt to obtain old records from [place] to see what prior surgical procedures were. Time Spent With Patient Time: Total time managing care of this patient today ____ minutes. Quality Stroke Does the patient have a stroke diagnosis?: No VTE Prior VTE?: No VTE Risk Level:: Medical - moderate - high VTE Device Contraindication: N/A - Device Ordered VTE Drug Contraindication: Treatment Not Indicated
--- NOTE | 2023-12-18 14:18 | MHC.CM.PN ---
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
[2023-12-19 03:17] VITALS: BP 123/72; PULSE 81; RESP 20; TEMP 37.5; O2SAT 98
[2023-12-19 08:00] VITALS: BP 134/76; PULSE 83; RESP 20; TEMP 37.1; O2SAT 99
[2023-12-19 08:20] LABS: Mean Corpuscular Hemoglobin 18.8 pg (27.0-33.0); Mean Platelet Volume 9.9 fL (9.4-12.4); Platelet Count 282 X10*3/uL (160-400); Red Cell Distribution Width 28.4 % (11.0-16.0); White Blood Count 7.8 X10*3/uL (4.8-10.8)
[2023-12-19 08:21] LABS: Mean Corpuscular Volume 64.6 fL (80.0-98.0)
[2023-12-19 08:36] LABS: Anion Gap 8 (12-20); Blood Urea Nitrogen 14 mg/dL (9-16); Calcium 8.6 mg/dL (8.4-10.2); Carbon Dioxide 23 mmol/L (22-29); Chloride 112 mmol/L (96-108); Creatinine Clr Calc Pharmacy 87.9; Estimated Glomerular Filt Rate > 60; Glucose Random 93 mg/dL (60-115); Potassium 3.6 mmol/L (3.3-5.1); Sodium 139 mmol/L (135-145)
--- NOTE | 2023-12-19 08:53 | PM.HEMONCCN ---
Subjective - Subjective Chief complaint: Consult for: Recurrent colon cancer. Patient: new to practice Consult date: 12/19/23 Requesting Physician: Adam. Primary Care Provider: Nelson Estevez MD Medical Summary: DIAGNOSIS: RECURRENT COLON CARCINOMA. HPI - Consult Narrative Reason for consult: Consult for: Recurrent colon carcinoma. Narrative: Arron Duff is a 72 year old gentleman, referred by Dr. Medina on account of recurrent Colon Carcinoma. He has a history of colon cancer status post resection and chemotherapy in 2005. Patient was lost to follow-up after 07/03/2019. He was seen in the ED on 12/16. He presented with black stool off and on for last few days.; He had colonoscopy on 11/28/23 at [place] which showed: A large nodular mass in proximal transverse colon pathology showed invasive adenocarcinoma. He been feeling weak and dizzy lab workup done showed hemoglobin of 6.9 CT scan of the abdomen pelvis from 12/16 revealed: Applecore lesion in the mid transverse colon concerning for neoplasm and stranding of the adjacent fat and small lymph nodes. Constipation. 3.5 x 6 x 7 cm left retroperitoneal cyst versus left renal cyst. This is increased in size from 2 cm from 2009 exam. [facility] Medical History: Adenocarcinoma of transverse colon: Moderately differentiated adenocarcinoma 8.5 CM invading through the muscularis propria into the pericolonic adipose tissue. 0 out of 6 lymph nodes, circumferential margin was involved by carcinoma. No venous or lymphatic invasion. Stage P. T3,N0, Mx. THERAPY: 1. status post 6 cycles of FOLFOX-based chemotherapy completed June 19, 2007. 2. Surveillance colonoscopy 11/17/2016 revealed tubular adenomas. Surgical History: History of partial colectomy Family history: Noncontributory. Social History Smoked in Last 30 Days: No Use of substances other than those prescribed or required for medical reasons: No Advance Directives: No Advance Directives Information Provided: No R0S: He feels rather fatigued. No fever chills or night sweats. Appetite is not that great. He has lost weight. No headache no dizziness. No chest pain or trouble breathing. He has had some discomfort in the abdomen. No nausea vomiting heartburn indigestion. His bowels have been loose with black stools. Denies dysuria or hematuria. No joint pains. Denies any focal weakness. Denies depression. No skin rashes no pruritus. Review of Systems - Constitutional Reports system reviewed and no additional complaints, except as documented, Reports fatigue, Reports lack of energy, Reports weight loss - Eyes Reports system reviewed and no additional complaints, except as documented, Denies blurry vision - ENT Reports system reviewed and no additional complaints, except as documented - Cardiovascular Reports system reviewed and no additional complaints, except as documented, Denies chest pain at rest - Respiratory Reports no additional respiratory complaints, Denies change in phlegm color - Gastrointestinal Reports system reviewed and no additional complaints, except as documented, Reports abdominal pain, Reports black, tarry stools, Reports bloating, Reports diarrhea - Genitourinary Genitourinary: Reports no additional male genitourinary complaints, Denies blood in urine - Musculoskeletal Reports system reviewed and no additional complaints, except as documented, Denies abnormal walking - Integumentary/Breasts Skin/Breast: Reports no additional skin complaints, Denies bleeding lesions - Neurologic Reports system reviewed and no additional complaints, except as documented - Psychiatric Reports system reviewed and no additional complaints, except as documented - Endocrine Reports no additional endocrine complaints, Denies cold intolerance - Hematologic/Lymphatic Reports system reviewed and no additional complaints, except as documented, Denies easy bleeding - Allergic/Immunologic Reports system reviewed and no additional complaints, except as documented, Reports GI upset with certain foods PMFSH Medical History: Medical History (Last Reviewed 12/22/23 @ 11:29 by Delphine Lewis MD) Adenocarcinoma of transverse colon HTN (hypertension) Surgical History: Surgical History (Last Reviewed 12/22/23 @ 11:29 by Delphine Lewis MD) History of partial colectomy S/P IVC filter Social History: Social History (Last Reviewed 12/22/23 @ 11:29 by Delphine Lewis MD) Living Situation History: Household Members: Family Housing: House Do you presently have visiting nurse or other home services: No Tobacco History: Patient Tobacco Use Status: Never used Tobacco Occupation Assessmet: service: No Home Medications and Allergies Current Medications: Current Medications Pantoprazole Sodium (Pantoprazole Sodium 40 Mg/10 Ml Vial) 40 mg IVPUSH Q12H [facility] Last Admin: 12/18/23 22:25 Dose: 40 mg Sodium Chloride (0.9 % Sodium Chloride Flush 3 Ml Syringe) 3 ml IVFLUSH QSHIFT [facility] Last Admin: 12/18/23 23:36 Dose: Not Given Home Medications Medication Instructions Recorded Confirmed Type omeprazole 20 mg tablet,delayed 20 mg PO DAILY PRN gi upset 12/16/23 12/16/23 History release polyethylene glycol 3350 17 17 g PO DAILY 12/16/23 12/16/23 History gram/dose oral powder (Miralax) Allergies Allergy/AdvReac Type Severity Reaction Status Date / Time No Known Allergies Allergy Verified 12/22/23 09:31 [No Known Allergies*] Physical Exam Vital signs: Vital Signs Temp 98.7 F 12/19/23 08:00 Pulse 83 12/19/23 08:00 Resp 20 12/19/23 08:00 BP 134/76 12/19/23 08:00 Pulse Ox 99 12/19/23 08:00 O2 Del Method Room Air 12/19/23 08:00 Intake & Output 12/18/23 12/19/23 12/19/23 18:59 06:59 18:59 Intake Total 2078.333 / 3078.333 1000 / 3078.333 Output Total 500 / 500 Balance 2078.333 / 2578.333 500 / 2578.333 Urine Output (Average ml/kg/hr) 0.50 Intake: Intake, Oral Amount 840 / 840 0 / 840 Intake (Blood Product) Amount 350 / 350 Red Blood Cells (E0382) Unit 350 / 350 [id number] Intake, IV Amount 888.333 / 5251.167 4136 / 1888.333 0.9 % Sodium Chloride 100 ml @ 100 / 100 100 mls/hr IV ONCE ONE Rx#: [id number] 0.9 % Sodium Chloride 1,000 ml 788.333 / 8155.635 9195 / 1788.333 @ 100 mls/hr IVCONT .Q10H [facility] Rx#:[id number] Output: Output, Urine Amount 500 / 500 Output, Stool Amount 0 / 0 Other: Number of Incontinent Voids 0 Number of Unmeasured Voids 5 0 Number of Bowel Movements 0 Urine Urinal Urine Color Yellow Last Bowel Movement 12/17/23 Stool Bathroom Weight 83 kg - Constitutional Present: moderate distress - Routine HEENT Exam Head: Present: normal inspection, normocephalic ENT: Present: mucous membranes moist - Routine Neck Exam Present: supple - Routine Respiratory Exam Present: CTAB - Routine Cardiovascular Exam Cardiovascular: Present: RRR, S1, S2 - Routine Abdominal Exam Present: distended, soft, tenderness - Routine Extremities Exam Present: nontender - Routine Skin Exam Present: intact - Routine Neurological Exam Present: alert, oriented X3 - Detailed Neurological Exam: Coma Scale Eye Opening: Spontaneous (4) Verbal Response: Oriented (5) Motor Response: Obeys commands (6) Arnold Coma Scale Total: 15 - Routine Psychiatric Exam Present: normal affect Hem/Onc Consult Result - Labs CBC & Chem 7: 12/25/23 06:31 12/25/23 06:31 Labs: Short CBC 12/19/23 Range/Units 07:23 WBC 7.8 (4.8-10.8) X10*3/uL Hgb 9.0 L (14.0-18.0) g/dl Hct 31.0 L (42.0-52.0) % Plt Count 282 (160-400) X10*3/uL BMP 12/19/23 07:23 Sodium 139 Potassium 3.6 Chloride 112 H Carbon Dioxide 23 BUN 14 Creatinine 0.79 Calcium 8.6 D Assessment and Plan Patient Active problem list reviewed?: Yes (1) Recurrent carcinoma of colon Status: Acute Assessment and plan: 73 year-old gentleman with a history of Moderately Differentiated Adenocarcinoma of the Colon, 8.5 cm, 0/16 lymph nodes. Status post adjuvant chemotherapy with FOLFOX x6 cycles. His most recent colonoscopy was in October 2016, by Dr. Johnson. It revealed a couple of tubular adenomas. His previous colonoscopy was in February of 2013 which was negative. PLAN: To proceed with laparotomy and resection: exploratory laparotomy, extensive enterolysis, takedown splenic flexure, transverse colectomy with primary colo colo anastomosis on . He will need chemotherapy after the surgery once he has recovered. I will follow the pathology report. Will see him on the outpatient basis. All his questions were answered to his satisfaction. Thank you, CC: Dr. Borden. - Time Spent With Patient Time Spent with Patient (in minutes): 30
[2023-12-19] MEDS: 0.9 % Sodium Chloride Flush 3 ML SYRINGE IVFLUSH ×3 (09:05→21:05)
[2023-12-19] MEDS: Pantoprazole Sodium 40 MG/10 ML VIAL IVPUSH ×2 (09:05→21:05)
--- NOTE | 2023-12-19 09:08 | PM.PNGS ---
Subjective Subjective Date of Service: 12/19/23 Interval history: Old records reviewed- patient with extensive surgical history including cecostomy, left hemicolectomy, cecostomy reversal, transverse colostomy for enterocutaneous fistula, transverse colostomy reversal and RUQ incisional hernia repair with mesh. Patient overall feels well this morning. Tolerating diet. Awaiting further plan. Sisters in room. H/H remains stable this morning. Physical Exam Vital Signs: Vital Signs: Last Vital Signs Temp 98.7 F 12/19/23 08:00 Pulse 83 12/19/23 08:00 Resp 20 12/19/23 08:00 BP 134/76 12/19/23 08:00 Pulse Ox 99 12/19/23 08:00 O2 Del Method Room Air 12/19/23 08:00 BMI result Body Mass Index 29.5 Const: General: comfortable, no acute distress and alert Orientation/consciousness: patient oriented x3 Resp: Effort & Inspection: normal respiratory effort GI: Inspection: No distended and Yes scar Palpation (GI): Soft to palpation, nontender, no guarding and not rigid Skin: General skin exam: no rashes or lesions noted Neuro: General: patient oriented x3 and moves all extremities Objective Data Active Medications Pantoprazole Sodium (Pantoprazole Sodium 40 Mg/10 Ml Vial) 40 mg IVPUSH Q12H [facility] Last Admin: 12/18/23 22:25 Dose: 40 mg Documented By: CURT Sodium Chloride (0.9 % Sodium Chloride Flush 3 Ml Syringe) 3 ml IVFLUSH QSHIFT [facility] Last Admin: 12/18/23 23:36 Dose: Not Given Documented By: CORNELL Non-Admin Reason: Previously Administered Labs 12/19/23 07:23 12/19/23 07:23 Labs: Laboratory Results - last 24 hr 12/16/23 12/19/23 19:16 07:23 MCV 64.6 L MCH 18.8 L MCHC 29.0 L RDW 28.4 H Plt Count 282 MPV 9.9 Absolute Nucleated RBC 0.000 Nucleated RBC % (auto) 0.0 Anion Gap 8 L Estim Creat Clear Calc 87.9 Estimated GFR > 60 Random Glucose 93 Calcium 8.6 D Blood Type O Positive Antibody Screen NEGATIVE Crossmatch See Detail Procedures Date of Service Date of Service: 12/19/23 Progress Note: A&P Assessment and plan (1) Recurrent carcinoma of colon: Status: Acute (2) Severe anemia: Status: Acute (3) GI (gastrointestinal bleed): Status: Acute Plan Plan for transverse colectomy on , bowel prep and clear liquids tomorrow. All patient and family questions answered. Time Spent With Patient Time: Total time managing care of this patient today ____ minutes. Quality Stroke Does the patient have a stroke diagnosis?: No VTE Prior VTE?: No VTE Risk Level:: Medical - moderate - high VTE Device Contraindication: N/A - Device Ordered VTE Drug Contraindication: Treatment Not Indicated
--- NOTE | 2023-12-19 10:34 | MHC.CM.PN ---
Per ROUNDS discussion, Patient us not yet medically cleared fir dc (Surgery by Tuesday); home is the goal and CM will continue to follow.
--- NOTE | 2023-12-19 11:19 | HO.PM.IMPN ---
Subjective Subjective Date of Service: 12/19/23 Interval History: Seen and evaluated this morning denies any fever or chills no reported bleeding overnight Hb improved to 8.6 after transfusion Review of Systems Review of Systems: Yes all other systems are reviewed and are negative Physical Exam Vital Signs: Vital Signs: Last Vital Signs Temp 98.7 F 12/19/23 08:00 Pulse 83 12/19/23 08:00 Resp 20 12/19/23 08:00 BP 134/76 12/19/23 08:00 Pulse Ox 99 12/19/23 08:00 O2 Del Method Room Air 12/19/23 08:00 BMI result Body Mass Index 29.5 Const: Other: Constitutional : Awake, interactive, not in distress Neck : Normal inspection, Supple Cardiovascular : RRR, no JVP, no lower extremity edema Respiratory : good bilateral air entry, no crackles, wheezes or rhonchi Gastrointestinal: soft, lax, Normal bowel sounds, Non tender Skin : Warm, Dry Neurological : Alert & oriented x3, No focal deficit Objective Data Active Medications Pantoprazole Sodium (Pantoprazole Sodium 40 Mg/10 Ml Vial) 40 mg IVPUSH Q12H [facility] Last Admin: 12/19/23 09:05 Dose: 40 mg Documented By: YOLI Sodium Chloride (0.9 % Sodium Chloride Flush 3 Ml Syringe) 3 ml IVFLUSH QSHIFT [facility] Last Admin: 12/19/23 09:05 Dose: 3 ml Documented By: YOLI Labs 12/19/23 07:23 12/19/23 07:23 Labs: Laboratory Results - last 24 hr 12/16/23 12/16/23 12/19/23 14:32 19:16 07:23 MCV 64.6 L MCH 18.8 L MCHC 29.0 L RDW 28.4 H Plt Count 282 MPV 9.9 Absolute Nucleated RBC 0.000 Nucleated RBC % (auto) 0.0 Smear Path Review SEE NOTE Anion Gap 8 L Estim Creat Clear Calc 87.9 Estimated GFR > 60 Random Glucose 93 Calcium 8.6 D Carcinoembryonic Ag 20.80 Blood Type O Positive Antibody Screen NEGATIVE Crossmatch See Detail Assessment and Plan (1) Recurrent carcinoma of colon: Status: Acute (2) Colon cancer: Status: Acute (3) Severe anemia: Status: Acute Plan Arron Duff is a 72 years old man with past medical history significant for colon CA status post resection (s/p colostomy bag --> reanastomosis s/p chemotherapy) admitted with: # Symptomatic acute blood loss anemia likely GI bleeding due to 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 Hb of 9 after 2 units transfusion Protonix 40 mg IV bid Pending oncology consult surgery planning surgery on Tuesday The patient will need PET scan for staging of the disease as outpatient if not done # GERD on PPI IV for now DVT prophylaxis: SCDs Code status: Full Patient will need hospitalization overnight for symptomatic anemia treatment with blood transfusions. Patient also need evaluation by multiple specialties/subspecialties for invasive adenocarcinoma evaluation and treatment. Quality Stroke Does the patient have a stroke diagnosis?: No VTE Prior VTE?: No VTE Risk Level:: Medical - moderate - high VTE Device Contraindication: N/A - Device Ordered VTE Drug Contraindication: Treatment Not Indicated
[2023-12-19 12:00] VITALS: BP 132/74; PULSE 97; RESP 17; TEMP 36.9; O2SAT 98
[2023-12-19 15:49] VITALS: BP 115/70; PULSE 82; RESP 16; TEMP 36.8; O2SAT 98
[2023-12-19 19:33] VITALS: BP 136/76; PULSE 93; RESP 20; TEMP 36.8; O2SAT 99
[2023-12-19 23:51] VITALS: BP 114/70; PULSE 79; RESP 20; TEMP 37.1; O2SAT 98
[2023-12-20 03:16] VITALS: BP 115/64; PULSE 79; RESP 20; TEMP 36.5; O2SAT 98
[2023-12-20 07:15] LABS: Hematocrit 31.7 % (42.0-52.0); Hemoglobin 9.2 g/dl (14.0-18.0); Mean Corpuscular Hemoglobin 18.7 pg (27.0-33.0); Platelet Count 281 X10*3/uL (160-400); Red Blood Count 4.91 X10*6/uL (4.60-5.80); Red Cell Distribution Width 29.2 % (11.0-16.0); White Blood Count 9.1 X10*3/uL (4.8-10.8)
[2023-12-20 07:20] LABS: Mean Corpuscular Volume 64.6 fL (80.0-98.0)
[2023-12-20 07:34] VITALS: BP 129/67; PULSE 96; RESP 20; TEMP 36.3; O2SAT 99
[2023-12-20] MEDS: 0.9 % Sodium Chloride Flush 3 ML SYRINGE IVFLUSH ×2 (08:12→15:16)
[2023-12-20] MEDS: Pantoprazole Sodium 40 MG/10 ML VIAL IVPUSH (08:12)
--- NOTE | 2023-12-20 09:53 | P.PNIM_ITS ---
Subjective Subjective Date of Service: 12/20/23 Interval History: Seen and evaluated this morning denies any fever or chills no reported bleeding overnight Hb stable at 9.2 Review of Systems Review of Systems: Yes all other systems are reviewed and are negative Physical Exam 2 Vital Signs: Vital Signs: Last Vital Signs Temp 97.4 F 12/20/23 07:34 Pulse 96 12/20/23 07:34 Resp 20 12/20/23 07:34 BP 129/67 12/20/23 07:34 Pulse Ox 99 12/20/23 07:34 O2 Del Method Room Air 12/20/23 07:34 BMI result Body Mass Index 29.5 Const: Other: Constitutional : Awake, interactive, not in distress Neck : Normal inspection, Supple Cardiovascular : RRR, no JVP, no lower extremity edema Respiratory : good bilateral air entry, no crackles, wheezes or rhonchi Gastrointestinal: soft, lax, Normal bowel sounds, Non tender Skin : Warm, Dry Neurological : Alert & oriented x3, No focal deficit Objective Data Active Medications Pantoprazole Sodium (Pantoprazole Sodium 40 Mg/10 Ml Vial) 40 mg IVPUSH Q12H [facility] Last Admin: 12/20/23 08:12 Dose: 40 mg Documented By: YOLI Sodium Chloride (0.9 % Sodium Chloride Flush 3 Ml Syringe) 3 ml IVFLUSH QSHIFT [facility] Last Admin: 12/20/23 08:12 Dose: 3 ml Documented By: YOLI Labs 12/20/23 06:25 12/19/23 07:23 Labs: Laboratory Results - last 24 hr 12/16/23 12/20/23 14:32 06:25 MCV 64.6 L MCH 18.7 L MCHC 29.0 L RDW 29.2 H Plt Count 281 MPV Not Reportable Absolute Nucleated RBC 0.000 Nucleated RBC % (auto) 0.0 Smear Path Review SEE NOTE Assessment and Plan (1) Colon cancer: Status: Acute (2) GERD (gastroesophageal reflux disease): Status: Acute (3) Severe anemia: Status: Acute (4) GI (gastrointestinal bleed): Status: Acute Plan Arron Duff is a 72 years old man with past medical history significant for colon CA status post resection (s/p colostomy bag --> reanastomosis s/p chemotherapy) admitted with: # Symptomatic acute blood loss anemia likely GI bleeding due to 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 Hb of 9 after 2 units transfusion Protonix 40 mg IV bid oncology input appreciated, Chemotherapy after surgery surgery planning surgery on Clear liquids and Gol[place] on Tue # GERD on PPI IV for now DVT prophylaxis: SCDs Code status: Full Patient will need hospitalization overnight for symptomatic anemia treatment with blood transfusions. Patient also need evaluation by multiple specialties/subspecialties for invasive adenocarcinoma evaluation and treatment. Quality Stroke Does the patient have a stroke diagnosis?: No VTE Prior VTE?: No VTE Risk Level:: Medical - moderate - high VTE Device Contraindication: N/A - Device Ordered VTE Drug Contraindication: Treatment Not Indicated
--- NOTE | 2023-12-20 09:54 | PM.PNGS ---
Subjective Subjective Date of Service: 12/20/23 Interval history: Uneventful evening. H&H 9.2, 31.6. Tolerating diet. No abdominal complaints. Physical Exam Vital Signs: Vital Signs: Last Vital Signs Temp 97.4 F 12/20/23 07:34 Pulse 96 12/20/23 07:34 Resp 20 12/20/23 07:34 BP 129/67 12/20/23 07:34 Pulse Ox 99 12/20/23 07:34 O2 Del Method Room Air 12/20/23 07:34 BMI result Body Mass Index 29.5 GI: Other: Abdomen soft. Multiple scars. Benign. Objective Data Active Medications Pantoprazole Sodium (Pantoprazole Sodium 40 Mg/10 Ml Vial) 40 mg IVPUSH Q12H [facility] Last Admin: 12/20/23 08:12 Dose: 40 mg Documented By: YOLI Sodium Chloride (0.9 % Sodium Chloride Flush 3 Ml Syringe) 3 ml IVFLUSH QSHIFT [facility] Last Admin: 12/20/23 08:12 Dose: 3 ml Documented By: YOLI Labs 12/20/23 06:25 12/19/23 07:23 Labs: Laboratory Results - last 24 hr 12/16/23 12/20/23 14:32 06:25 MCV 64.6 L MCH 18.7 L MCHC 29.0 L RDW 29.2 H Plt Count 281 MPV Not Reportable Absolute Nucleated RBC 0.000 Nucleated RBC % (auto) 0.0 Smear Path Review SEE NOTE Procedures Date of Service Date of Service: 12/20/23 Progress Note: A&P Assessment and plan (1) Recurrent carcinoma of colon: Status: Acute (2) Severe anemia: Status: Acute Plan Patient is tentatively scheduled for morning for his surgery. Unable to obtain OR time for Tuesday. Bowel prep will be on Tuesday day prior. Procedure was reviewed with patient and his brother who was also present. Risks, benefits, alternatives reviewed and included but not limited to bleeding, infection, temporary ostomy, numbness, pain, scarring and the patient wishes to proceed. All questions answered. Time Spent With Patient Time: Total time managing care of this patient today ____ minutes. Quality Stroke Does the patient have a stroke diagnosis?: No VTE Prior VTE?: No VTE Risk Level:: Medical - moderate - high VTE Device Contraindication: N/A - Device Ordered VTE Drug Contraindication: Treatment Not Indicated
[2023-12-20 11:23] VITALS: BP 114/65; PULSE 104; RESP 20; TEMP 36.6; O2SAT 98
[2023-12-20 15:20] VITALS: BP 125/73; PULSE 101; RESP 20; TEMP 36.7; O2SAT 99
[2023-12-20 19:58] VITALS: BP 144/81; PULSE 93; RESP 16; TEMP 36.4; O2SAT 99
[2023-12-21] VITALS (7 sets, daily range): BP systolic 109–133; BP diastolic 62–75; PULSE 75–98; RESP 16–20; TEMP 36.3–37.3; O2SAT 97–99
[2023-12-21 06:52] LABS: Hematocrit 31.3 % (42.0-52.0); Hemoglobin 9.2 g/dl (14.0-18.0); Mean Corpuscular HGB Conc 29.4 g/dl (31.0-36.0); Platelet Count 272 X10*3/uL (160-400); Red Blood Count 4.84 X10*6/uL (4.60-5.80); Red Cell Distribution Width 29.7 % (11.0-16.0)
[2023-12-21 06:55] LABS: Mean Corpuscular Volume 64.7 fL (80.0-98.0)
[2023-12-21 07:15] LABS: Anion Gap 11 (12-20); Blood Urea Nitrogen 18 mg/dL (9-16); Calcium 8.4 mg/dL (8.4-10.2); Carbon Dioxide 25 mmol/L (22-29); Chloride 106 mmol/L (96-108); Creatinine Clr Calc Pharmacy 79.6; Estimated Glomerular Filt Rate > 60; Glucose Random 92 mg/dL (60-115); Potassium 3.9 mmol/L (3.3-5.1); Sodium 138 mmol/L (135-145)
--- NOTE | 2023-12-21 10:35 | MHC.CM.PN ---
Per ROUNDS discussion, Patient is not yet medically cleared for dc today (Surgery tomorrow r/t Colon CA);home is the goal and CM will continue to follow.
--- NOTE | 2023-12-21 10:59 | HO.PM.IMPN ---
Subjective Subjective Date of Service: 12/21/23 Interval History: no complaints Review of Systems Review of Systems: Yes all other systems are reviewed and are negative Physical Exam Vital Signs: Vital Signs: Last Vital Signs Temp 986 F H 12/21/23 07:09 Pulse 89 12/21/23 07:09 Resp 18 12/21/23 07:09 BP 133/72 12/21/23 07:09 Pulse Ox 98 12/21/23 07:09 O2 Del Method Room Air 12/21/23 07:09 BMI result Body Mass Index 29.5 General: AO X 3, no acute distress Resp: CTA bilateral, no accessory muscles used CVS: S1,S2,RRR GI: soft, non tender, non distended Neuro: motor grossly intact, alert Psych: appropriate affect, appropriate insight Objective Data Active Medications Erythromycin (Erythromycin Base 250 Mg Tablet) 1,000 mg PO ONCE ONE Stop: 12/21/23 20:04 Erythromycin (Erythromycin Base 250 Mg Tablet) 1,000 mg PO ONCE ONE Stop: 12/21/23 21:04 Erythromycin (Erythromycin Base 250 Mg Tablet) 1,000 mg PO ONCE ONE Stop: 12/22/23 00:01 Neomycin Sulfate (Neomycin Sulfate 500 Mg Tablet) 1,000 mg PO ONCE ONE Stop: 12/21/23 20:03 Neomycin Sulfate (Neomycin Sulfate 500 Mg Tablet) 1,000 mg PO ONCE ONE Stop: 12/21/23 21:03 Neomycin Sulfate (Neomycin Sulfate 500 Mg Tablet) 1,000 mg PO ONCE ONE Stop: 12/22/23 00:01 Polyethylene Glycol/Electrolytes (Peg 3350/Na Sulf,Bicarb,Cl/Kcl 4,000 Ml Soln.Recon) 240 ml PO Q10M [facility] Stop: 12/21/23 17:41 Sodium Chloride (0.9 % Sodium Chloride Flush 3 Ml Syringe) 3 ml IVFLUSH QSHIFT [facility] Last Admin: 12/21/23 03:00 Dose: Not Given Documented By: GLENYS Non-Admin Reason: Previously Administered Labs 12/21/23 06:13 12/21/23 06:13 Labs: Laboratory Results - last 24 hr 12/21/23 06:13 MCV 64.7 L MCH 19.0 L MCHC 29.4 L RDW 29.7 H Plt Count 272 MPV Not Reportable Absolute Nucleated RBC 0.000 Nucleated RBC % (auto) 0.0 Anion Gap 11 L Estim Creat Clear Calc 79.6 Estimated GFR > 60 Random Glucose 92 Calcium 8.4 Assessment and Plan (1) Colon cancer: Status: Acute (2) GERD (gastroesophageal reflux disease): Status: Acute (3) Severe anemia: Status: Acute (4) GI (gastrointestinal bleed): Status: Acute Plan 72M PMH colon CA status post resection (s/p colostomy bag --> reanastomosis s/p chemotherapy) presented with dizziness, found to have anemia with new finding of colonic mass Symptomatic acute and chronic blood loss anemia due to 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
[2023-12-21] MEDS: PEG 3350/Na Sulf,Bicarb,Cl/KCL 4,000 ML SOLN.RECON 240 ML PO (17:24)
[2023-12-21] MEDS: 0.9 % Sodium Chloride Flush 3 ML SYRINGE IVFLUSH ×3 (17:26→20:36)
[2023-12-21] MEDS: neoMYCIN Sulfate 500 MG TABLET 1000 MG PO ×3 (20:36→23:35)
[2023-12-21] MEDS: Erythromycin Base 250 MG TABLET 1000 MG PO ×3 (20:36→23:35)
[2023-12-21 21:44] LABS: Hematocrit 33.8 % (42.0-52.0)
[2023-12-22] VITALS (20 sets, daily range): BP systolic 115–136; BP diastolic 61–77; PULSE 65–97; RESP 14–20; TEMP 36.5–37.6; O2SAT 96–99
[2023-12-22 06:57] LABS: Anion Gap 11 (12-20); Blood Urea Nitrogen 16 mg/dL (9-16); Calcium 8.3 mg/dL (8.4-10.2); Carbon Dioxide 24 mmol/L (22-29); Chloride 110 mmol/L (96-108); Creatinine Clr Calc Pharmacy 83.5; Estimated Glomerular Filt Rate > 60; Glucose Fasting 97 mg/dL (60-99); Sodium 141 mmol/L (135-145)
[2023-12-22 07:02] LABS: Hematocrit 30.1 % (42.0-52.0); Hemoglobin 8.8 g/dl (14.0-18.0); Mean Corpuscular HGB Conc 29.2 g/dl (31.0-36.0); Mean Corpuscular Hemoglobin 19.4 pg (27.0-33.0); Mean Corpuscular Volume 66.4 fL (80.0-98.0); Platelet Count 272 X10*3/uL (160-400); Red Blood Count 4.53 X10*6/uL (4.60-5.80); Red Cell Distribution Width 30.1 % (11.0-16.0); White Blood Count 8.8 X10*3/uL (4.8-10.8)
[2023-12-22] MEDS: 0.9 % Sodium Chloride Flush 3 ML SYRINGE IVFLUSH ×3 (08:28→20:05)
--- NOTE | 2023-12-22 08:59 | P.PNIM_ITS ---
Subjective Subjective Date of Service: 12/22/23 Interval History: no complaints Review of Systems Review of Systems: Yes all other systems are reviewed and are negative Physical Exam 2 Vital Signs: Vital Signs: Last Vital Signs Temp 98.0 F 12/22/23 07:19 Pulse 93 12/22/23 07:19 Resp 18 12/22/23 07:19 BP 127/71 12/22/23 07:19 Pulse Ox 98 12/22/23 07:19 O2 Del Method Room Air 12/22/23 07:19 BMI result Body Mass Index 29.5 General: AO X 3, no acute distress Resp: CTA bilateral, no accessory muscles used CVS: S1,S2,RRR GI: soft, non tender, non distended Neuro: motor grossly intact, alert Psych: appropriate affect, appropriate insight Objective Data Active Medications Cefotetan Disodium 2 gm/ (Sodium Chloride) 50 mls @ 100 mls/hr IV PREOP ONE Stop: 12/22/23 13:34 Sodium Chloride (0.9 % Sodium Chloride Flush 3 Ml Syringe) [address] [facility] Last Admin: 12/22/23 08:28 Dose: 3 ml Documented By: JAZMÍN Labs 12/22/23 06:13 12/22/23 06:13 Labs: Laboratory Results - last 24 hr 12/21/23 12/22/23 10:18 06:13 MCV 66.4 L MCH 19.4 L MCHC 29.2 L RDW 30.1 H Plt Count 272 MPV Not Reportable Absolute Nucleated RBC 0.000 Nucleated RBC % (auto) 0.0 Anion Gap 11 L Estim Creat Clear Calc 83.5 Estimated GFR > 60 Fasting Glucose 97 Calcium 8.3 L Blood Type O Positive Antibody Screen NEGATIVE Assessment and Plan (1) Colon cancer: Status: Acute (2) GERD (gastroesophageal reflux disease): Status: Acute (3) Severe anemia: Status: Acute (4) GI (gastrointestinal bleed): Status: Acute Plan 72M PMH colon CA status post resection (s/p colostomy bag --> reanastomosis s/p chemotherapy) presented with dizziness, found to have anemia with new finding of colonic mass Symptomatic acute and chronic blood loss anemia due to 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
--- NOTE | 2023-12-22 09:36 | PC.NURSE ---
#20 right upper arm PRN angio flushed well, site asymptomatic.
--- NOTE | 2023-12-22 09:40 | HO.ANESPROP2 ---
[facility] Active Problems Active Problems: All Active Problems (Updated 12/22/23 @ 09:31 by Mirlande Arreola) Recurrent carcinoma of colon (Acute) Colon cancer (Acute) GERD (gastroesophageal reflux disease) (Acute) Severe anemia (Acute) GI (gastrointestinal bleed) (Acute) Adenocarcinoma (Acute) Past Medical History Medical History HTN (hypertension) Adenocarcinoma of transverse colon Surgical History Surgical History S/P IVC filter History of partial colectomy Social History Social History Household Members: Family Housing: House Do you presently have visiting nurse or other home services: No Patient Tobacco Use Status: Never used Tobacco service: No Meds Allergies Allergy/AdvReac Type Severity Reaction Status Date / Time No Known Allergies Allergy Verified 12/22/23 09:31 [No Known Allergies*] Active Medications: Current Medications Cefotetan Disodium 2 gm/ (Sodium Chloride) 50 mls @ 100 mls/hr IV PREOP ONE Stop: 12/22/23 13:34 Sodium Chloride (0.9 % Sodium Chloride Flush 3 Ml Syringe) [facility] Last Admin: 12/22/23 08:28 Dose: 3 ml Home Medications Medication Instructions Recorded Confirmed Last Taken Type omeprazole 20 mg tablet,delayed 20 mg PO DAILY PRN gi upset 12/16/23 12/16/23 Unknown History release polyethylene glycol 3350 17 17 g PO DAILY 12/16/23 12/16/23 12/15/23 History gram/dose oral powder (Miralax) Exam Height,Weight and Vital Signs: Height 5 ft 6 in Weight 83 kg Last Vital Signs Temp 99.6 F 12/22/23 09:16 Pulse 97 12/22/23 09:16 Resp 16 12/22/23 09:16 BP 132/74 12/22/23 09:16 Pulse Ox 99 12/22/23 09:16 O2 Del Method Room Air 12/22/23 09:16 Pertinent Lab Results Pertinent Lab Results: Laboratory Tests 12/16/23 12/16/23 12/16/23 14:32 19:05 19:16 WBC 9.5 RBC 4.28 L Hgb 6.9 L* Hct 25.6 L MCV 59.8 L MCH 16.1 L MCHC 27.0 L RDW 21.2 H Plt Count 347 MPV 9.2 L Immature Gran % (Auto) 0.4 Neut % (Auto) 63.3 Lymph % (Auto) 23.9 [place] % (Auto) 9.1 Eos % (Auto) 2.9 Baso % (Auto) 0.4 Lymph # (Auto) 2.3 [place] # (Auto) 0.9 Eos # (Auto) 0.3 Baso # (Auto) 0.0 Abs Immat Gran (auto) 0.04 H Absolute Neuts (auto) 6.0 Absolute Nucleated RBC 0.000 Nucleated RBC % (auto) 0.0 Smear Path Review SEE NOTE PT 13.7 H INR 1.1 Sodium 140 Potassium 4.3 Chloride 109 H Carbon Dioxide 25 Anion Gap 10 L BUN 17 H Creatinine 0.99 Estim Creat Clear Calc 70.1 Estimated GFR > 60 Random Glucose 147 H Fasting Glucose Calcium 8.7 Magnesium 2.2 Iron 10 L TIBC 329 % Saturation 3 L Unsat Iron Binding 319 Total Bilirubin 0.9 AST 15 ALT 9 Alkaline Phosphatase 73 Total Protein 7.2 Albumin 3.8 Lipase 19 Carcinoembryonic Ag Stool Occult Blood POSITIVE Blood Type O Positive Antibody Screen NEGATIVE Crossmatch See Detail 12/17/23 12/18/23 12/19/23 07:43 07:04 07:23 WBC 7.6 8.0 7.8 RBC 4.61 4.66 4.80 Hgb 8.3 L D 8.4 L 9.0 L Hct 29.2 L 29.6 L 31.0 L MCV 63.3 L 63.5 L 64.6 L MCH 18.0 L 18.0 L 18.8 L MCHC 28.4 L 28.4 L 29.0 L RDW 26.1 H 26.2 H 28.4 H Plt Count 295 309 282 MPV 9.5 9.8 9.9 Immature Gran % (Auto) Neut % (Auto) Lymph % (Auto) [place] % (Auto) Eos % (Auto) Baso % (Auto) Lymph # (Auto) [place] # (Auto) Eos # (Auto) Baso # (Auto) Abs Immat Gran (auto) Absolute Neuts (auto) Absolute Nucleated RBC 0.000 0.000 0.000 Nucleated RBC % (auto) 0.0 0.0 0.0 Smear Path Review PT INR Sodium 140 140 139 Potassium 4.2 3.9 3.6 Chloride 109 H 111 H 112 H Carbon Dioxide 23 23 23 Anion Gap 12 10 L 8 L BUN 16 14 14 Creatinine 0.83 0.84 0.79 Estim Creat Clear Calc 83.7 82.7 87.9 Estimated GFR > 60 > 60 > 60 Random Glucose 98 95 93 Fasting Glucose Calcium 8.1 L D 8.0 L 8.6 D Magnesium Iron TIBC % Saturation Unsat Iron Binding Total Bilirubin AST ALT Alkaline Phosphatase Total Protein Albumin Lipase Carcinoembryonic Ag 20.80 Stool Occult Blood Blood Type Antibody Screen Crossmatch 12/20/23 12/21/23 12/21/23 06:25 06:13 10:18 WBC 9.1 8.0 RBC 4.91 4.84 Hgb 9.2 L 9.2 L Hct 31.7 L 31.3 L MCV 64.6 L 64.7 L MCH 18.7 L 19.0 L MCHC 29.0 L 29.4 L RDW 29.2 H 29.7 H Plt Count 281 272 MPV Not Reportable Not Reportable Immature Gran % (Auto) Neut % (Auto) Lymph % (Auto) [place] % (Auto) Eos % (Auto) Baso % (Auto) Lymph # (Auto) [place] # (Auto) Eos # (Auto) Baso # (Auto) Abs Immat Gran (auto) Absolute Neuts (auto) Absolute Nucleated RBC 0.000 0.000 Nucleated RBC % (auto) 0.0 0.0 Smear Path Review PT INR Sodium 138 Potassium 3.9 Chloride 106 Carbon Dioxide 25 Anion Gap 11 L BUN 18 H Creatinine 0.86 Estim Creat Clear Calc 79.6 Estimated GFR > 60 Random Glucose 92 Fasting Glucose Calcium 8.4 Magnesium Iron TIBC % Saturation Unsat Iron Binding Total Bilirubin AST ALT Alkaline Phosphatase Total Protein Albumin Lipase Carcinoembryonic Ag Stool Occult Blood Blood Type O Positive Antibody Screen NEGATIVE Crossmatch 12/21/23 12/22/23 21:39 06:13 WBC 8.8 RBC 4.53 L Hgb 10.0 L 8.8 L Hct 33.8 L 30.1 L MCV 66.4 L MCH 19.4 L MCHC 29.2 L RDW 30.1 H Plt Count 272 MPV Not Reportable Immature Gran % (Auto) Neut % (Auto) Lymph % (Auto) [place] % (Auto) Eos % (Auto) Baso % (Auto) Lymph # (Auto) [place] # (Auto) Eos # (Auto) Baso # (Auto) Abs Immat Gran (auto) Absolute Neuts (auto) Absolute Nucleated RBC 0.000 Nucleated RBC % (auto) 0.0 Smear Path Review PT INR Sodium 141 Potassium 4.0 Chloride 110 H Carbon Dioxide 24 Anion Gap 11 L BUN 16 Creatinine 0.82 Estim Creat Clear Calc 83.5 Estimated GFR > 60 Random Glucose Fasting Glucose 97 Calcium 8.3 L Magnesium Iron TIBC % Saturation Unsat Iron Binding Total Bilirubin AST ALT Alkaline Phosphatase Total Protein Albumin Lipase Carcinoembryonic Ag Stool Occult Blood Blood Type Antibody Screen Crossmatch
--- NOTE | 2023-12-22 11:29 | P.CONAN_ITS ---
[facility] Active Problems Active Problems: All Active Problems (Updated 12/22/23 @ 09:31 by Mirlande Arreola) Recurrent carcinoma of colon (Acute) Colon cancer (Acute) GERD (gastroesophageal reflux disease) (Acute) Severe anemia (Acute) GI (gastrointestinal bleed) (Acute) Adenocarcinoma (Acute) Past Medical History Medical History HTN (hypertension) Adenocarcinoma of transverse colon Family History Family history of problems with anesthesia: No Surgical History Surgical History S/P IVC filter History of partial colectomy History of Problems with Anesthesia: No Social History Social History Household Members: Family Housing: House Do you presently have visiting nurse or other home services: No Patient Tobacco Use Status: Never used Tobacco service: No Meds Allergies Allergy/AdvReac Type Severity Reaction Status Date / Time No Known Allergies Allergy Verified 12/22/23 09:31 [No Known Allergies*] Active Medications: Current Medications Cefotetan Disodium 2 gm/ (Sodium Chloride) 50 mls @ 100 mls/hr IV PREOP ONE Stop: 12/22/23 13:34 Sodium Chloride (Ns) 100 mls @ 100 mls/hr IV ONCE ONE Stop: 12/22/23 11:42 Sodium Chloride (Ns) 100 mls @ 100 mls/hr IV ONCE ONE Stop: 12/22/23 11:43 Sodium Chloride (0.9 % Sodium Chloride Flush 3 Ml Syringe) [facility] Admin: 12/22/23 08:28 Dose: 3 ml Home Medications Medication Instructions Recorded Confirmed Last Taken Type omeprazole 20 mg tablet,delayed 20 mg PO DAILY PRN gi upset 12/16/23 12/16/23 Unknown History release polyethylene glycol 3350 17 17 g PO DAILY 12/16/23 12/16/23 12/15/23 History gram/dose oral powder (Miralax) Exam Height,Weight and Vital Signs: Height 5 ft 6 in Weight 83 kg Last Vital Signs Temp 99.7 F 12/22/23 11:20 Pulse 82 12/22/23 11:20 Resp 16 12/22/23 11:20 BP 134/73 12/22/23 11:20 Pulse Ox 99 12/22/23 09:16 O2 Del Method Room Air 12/22/23 09:16 Pertinent Lab Results Pertinent Lab Results: Laboratory Tests 12/16/23 12/16/23 12/16/23 14:32 19:05 19:16 WBC 9.5 RBC 4.28 L Hgb 6.9 L* Hct 25.6 L MCV 59.8 L MCH 16.1 L MCHC 27.0 L RDW 21.2 H Plt Count 347 MPV 9.2 L Immature Gran % (Auto) 0.4 Neut % (Auto) 63.3 Lymph % (Auto) 23.9 [place] % (Auto) 9.1 Eos % (Auto) 2.9 Baso % (Auto) 0.4 Lymph # (Auto) 2.3 [place] # (Auto) 0.9 Eos # (Auto) 0.3 Baso # (Auto) 0.0 Abs Immat Gran (auto) 0.04 H Absolute Neuts (auto) 6.0 Absolute Nucleated RBC 0.000 Nucleated RBC % (auto) 0.0 Smear Path Review SEE NOTE PT 13.7 H INR 1.1 Sodium 140 Potassium 4.3 Chloride 109 H Carbon Dioxide 25 Anion Gap 10 L BUN 17 H Creatinine 0.99 Estim Creat Clear Calc 70.1 Estimated GFR > 60 Random Glucose 147 H Fasting Glucose Calcium 8.7 Magnesium 2.2 Iron 10 L TIBC 329 % Saturation 3 L Unsat Iron Binding 319 Total Bilirubin 0.9 AST 15 ALT 9 Alkaline Phosphatase 73 Total Protein 7.2 Albumin 3.8 Lipase 19 Carcinoembryonic Ag Stool Occult Blood POSITIVE Blood Type O Positive Antibody Screen NEGATIVE Crossmatch See Detail 12/17/23 12/18/23 12/19/23 07:43 07:04 07:23 WBC 7.6 8.0 7.8 RBC 4.61 4.66 4.80 Hgb 8.3 L D 8.4 L 9.0 L Hct 29.2 L 29.6 L 31.0 L MCV 63.3 L 63.5 L 64.6 L MCH 18.0 L 18.0 L 18.8 L MCHC 28.4 L 28.4 L 29.0 L RDW 26.1 H 26.2 H 28.4 H Plt Count 295 309 282 MPV 9.5 9.8 9.9 Immature Gran % (Auto) Neut % (Auto) Lymph % (Auto) [place] % (Auto) Eos % (Auto) Baso % (Auto) Lymph # (Auto) [place] # (Auto) Eos # (Auto) Baso # (Auto) Abs Immat Gran (auto) Absolute Neuts (auto) Absolute Nucleated RBC 0.000 0.000 0.000 Nucleated RBC % (auto) 0.0 0.0 0.0 Smear Path Review PT INR Sodium 140 140 139 Potassium 4.2 3.9 3.6 Chloride 109 H 111 H 112 H Carbon Dioxide 23 23 23 Anion Gap 12 10 L 8 L BUN 16 14 14 Creatinine 0.83 0.84 0.79 Estim Creat Clear Calc 83.7 82.7 87.9 Estimated GFR > 60 > 60 > 60 Random Glucose 98 95 93 Fasting Glucose Calcium 8.1 L D 8.0 L 8.6 D Magnesium Iron TIBC % Saturation Unsat Iron Binding Total Bilirubin AST ALT Alkaline Phosphatase Total Protein Albumin Lipase Carcinoembryonic Ag 20.80 Stool Occult Blood Blood Type Antibody Screen Crossmatch 12/20/23 12/21/23 12/21/23 06:25 06:13 10:18 WBC 9.1 8.0 RBC 4.91 4.84 Hgb 9.2 L 9.2 L Hct 31.7 L 31.3 L MCV 64.6 L 64.7 L MCH 18.7 L 19.0 L MCHC 29.0 L 29.4 L RDW 29.2 H 29.7 H Plt Count 281 272 MPV Not Reportable Not Reportable Immature Gran % (Auto) Neut % (Auto) Lymph % (Auto) [place] % (Auto) Eos % (Auto) Baso % (Auto) Lymph # (Auto) [place] # (Auto) Eos # (Auto) Baso # (Auto) Abs Immat Gran (auto) Absolute Neuts (auto) Absolute Nucleated RBC 0.000 0.000 Nucleated RBC % (auto) 0.0 0.0 Smear Path Review PT INR Sodium 138 Potassium 3.9 Chloride 106 Carbon Dioxide 25 Anion Gap 11 L BUN 18 H Creatinine 0.86 Estim Creat Clear Calc 79.6 Estimated GFR > 60 Random Glucose 92 Fasting Glucose Calcium 8.4 Magnesium Iron TIBC % Saturation Unsat Iron Binding Total Bilirubin AST ALT Alkaline Phosphatase Total Protein Albumin Lipase Carcinoembryonic Ag Stool Occult Blood Blood Type O Positive Antibody Screen NEGATIVE Crossmatch See Detail 12/21/23 12/22/23 21:39 06:13 WBC 8.8 RBC 4.53 L Hgb 10.0 L 8.8 L Hct 33.8 L 30.1 L MCV 66.4 L MCH 19.4 L MCHC 29.2 L RDW 30.1 H Plt Count 272 MPV Not Reportable Immature Gran % (Auto) Neut % (Auto) Lymph % (Auto) [place] % (Auto) Eos % (Auto) Baso % (Auto) Lymph # (Auto) [place] # (Auto) Eos # (Auto) Baso # (Auto) Abs Immat Gran (auto) Absolute Neuts (auto) Absolute Nucleated RBC 0.000 Nucleated RBC % (auto) 0.0 Smear Path Review PT INR Sodium 141 Potassium 4.0 Chloride 110 H Carbon Dioxide 24 Anion Gap 11 L BUN 16 Creatinine 0.82 Estim Creat Clear Calc 83.5 Estimated GFR > 60 Random Glucose Fasting Glucose 97 Calcium 8.3 L Magnesium Iron TIBC % Saturation Unsat Iron Binding Total Bilirubin AST ALT Alkaline Phosphatase Total Protein Albumin Lipase Carcinoembryonic Ag Stool Occult Blood Blood Type Antibody Screen Crossmatch Airway Mallampati Class: II TM Dist: >3cm Neck ROM: Full Heart: RRR Lungs: CTA Assessment and Plan Assessment Anesthesia Assessment: Anesthesia Plan Discussed Final Anesthetic Review Family History of Problems with Anesthesia: No History of Problems with Anesthesia: No NPO: Yes ASA Class: III Final Preanesthetic Review: Meds/Allgs Chart Reviewed, Consent Obtained/Reviewed and Anes Risks/Benef Reviewed Patient Risk: Intermediate Procedure Risk: Intermediate Anesthetic Plan Anesthetic Plan: GA and Other (TAP nerve block for post op. pain) Disposition: Standard PACU
--- NOTE | 2023-12-22 11:58 | MHC.SHP ---
Pre-Procedural Eval Section A - 24 Hr Update-Section A only Date of Service: 12/22/23 The patient is an INPATIENT: No Changes since office visit: No Cold of Flu in the past 2 weeks, No New Medical Problems, No Changes in Medication and No Patient answered all questions The patient has been examined within 24 hours of the surgical procedure. The History & Physical has been completed within 30 days and I have reviewed it.: Yes Section B - Complete if H&P > 30 days Chief Complaint: Symptomatic Anemia Allergies: Allergies Allergy/AdvReac Type Severity Reaction Status Date / Time No Known Allergies Allergy Verified 12/22/23 09:31 [No Known Allergies*] Plan I have reviewed the history and physical and performed a pertinent physical examination on my patient. No changes have occurred unless specified. Time Spent With Patient Time: Total time managing care of this patient today ____ minutes.
--- NOTE | 2023-12-22 14:00 | W.PM.OPN ---
Operative Note Operative Note Date of Service: 12/22/23 Narrative: Preoperative diagnosis: [] bleeding transverse colon cancer Postop diagnosis: [] Same Procedure [] exploratory laparotomy, extensive enterolysis, takedown splenic flexure, transverse colectomy with primary colo colo anastomosis. Surgeon: Mihci Coin Machine Operator: [] Andrade Chow Type of Anesthesia: [] General Indication for surgery: [] Patient has had multiple, multiple prior abdominal surgeries. Intraoperative findings demonstrated dense and extensive adhesions. Patient had among other surgeries had ventral hernia repair with mesh in the past. Patient had a knuckle of bowel which was intermittently adhered to this mesh necessitating very extensive enterolysis just to gain entry into the abdominal cavity and to obtain circumferentially cleared fascia margins. One particular piece of bowel had a transmural defect status post enterolysis which was repaired using interrupted 3-0 silk sutures. At completion of procedure, small-bowel was run with no other defects. Patient had a premarked inked transverse colonic tumor mass. No gross evidence of liver masses or regional adenopathy. No gross evidence of mesenteric adenopathy. Findings: [] Patient brought to the operating room, placed on operative table in supine position, after an adequate level of general anesthesia was induced, the patient's abdomen is prepped and draped in usual sterile fashion. An upper midline incision just below the xiphoid which was an area of no prior incisions was carried down through to the prior upper midline incision and through skin and subcutaneous tissue. Linea alba was opened and abdominal cavity was entered. As noted above, dense and extensive small bowel adhesions to the abdominal wall were encountered. Prolonged enterolysis to free the adhered small bowel from the mesh and midline incision was undertaken. As noted above, patient had 1 particular knuckle of bowel which was intermittently adhered to the mesh and a transmural defect from the enterolysis was encountered and was repaired primarily using interrupted seromuscular 3-0 silk sutures. Succus traversed this repair with no leak. Once adequately mobilized and freed of adhesions, packs and retractors were placed to enhance exposure. Transverse colonic tumor which had been inked from prior colonoscopy was identified. The proximal and distal transverse colon were mobilized. This involved taken down the hepatic flexure and splenic flexure respectively using a combination of blunt, sharp, and ligature device.. Colon and the omentum were and once adequately mobilized proximal and distal transverse colon were obtained, CLARICE 80 staplers were transected at the desired location and mesentery transected using combination of double firing of ligature device and suture ligature of 0 silk. Specimen sent to pathology. With adequately mobilized and well-vascularized proximal and distal transverse colon, a functional end-to-end anastomosis using CLARICE 60 and TA staplers was uneventfully performed. Mesenteric defect was reapproximated using interrupted 3-0 Vicryl sutures. Crotch of the anastomosis was buttressed using seromuscular 3-0 silk sutures. Succus traversed the anastomosis with no obvious air leak. Abdominal cavity was very copiously irrigated secured hemostasis. It was closed in the following manner; mass closure using 1. Looped PDS suture was used to close the fascia and mesh. Skin wound was closed using interrupted inverted dermal 3-0 Vicryl sutures followed by Steri-Strips and sterile dressings. Patient had a prior tap block. Sponge, needle, and instrument counts reported correct. Patient tolerated the procedure well and emerged from anesthesia stable condition. EBL minimal.
[2023-12-22] MEDS: fentaNYL citrate/PF 100 MCG/2 ML VIAL 25 MCG IVPUSH ×3 (14:07→14:18)
[2023-12-22] MEDS: Lactated Ringers 1,000 ML 80 ML IVCONT (16:28)
[2023-12-22] MEDS: Acetaminophen 1,000 MG/100 ML PIGGYBACK 400 MG IV (18:28)
[2023-12-23] MEDS: Acetaminophen 1,000 MG/100 ML PIGGYBACK 400 MG IV ×4 (01:22→18:27)
[2023-12-23 03:13] VITALS: BP 122/61; PULSE 65; RESP 18; TEMP 36.4; O2SAT 95
[2023-12-23] MEDS: Lactated Ringers 1,000 ML 80 ML IVCONT ×2 (04:20→15:41)
[2023-12-23 07:03] LABS: Hematocrit 33.8 % (42.0-52.0); Hemoglobin 10.2 g/dl (14.0-18.0); Mean Corpuscular HGB Conc 30.2 g/dl (31.0-36.0); Mean Corpuscular Hemoglobin 20.4 pg (27.0-33.0); Mean Corpuscular Volume 67.6 fL (80.0-98.0); Platelet Count 228 X10*3/uL (160-400); Red Cell Distribution Width 30.5 % (11.0-16.0); White Blood Count 16.5 X10*3/uL (4.8-10.8)
[2023-12-23 07:31] LABS: Anion Gap 14 (12-20); Blood Urea Nitrogen 12 mg/dL (9-16); Calcium 8.6 mg/dL (8.4-10.2); Carbon Dioxide 23 mmol/L (22-29); Chloride 107 mmol/L (96-108); Creatinine Clr Calc Pharmacy 86.7; Estimated Glomerular Filt Rate > 60; Glucose Fasting 136 mg/dL (60-99); Sodium 140 mmol/L (135-145)
--- NOTE | 2023-12-23 07:44 | P.PNGS_ITS ---
Subjective Subjective Date of Service: 12/23/23 Interval history: Feels overall well. Tolerating water. Denies flatus or getting OOB. Physical Exam 2 Vital Signs: Vital Signs: Last Vital Signs Temp 97.6 F 12/23/23 03:13 Pulse 65 12/23/23 03:13 Resp 18 12/23/23 03:13 BP 122/61 12/23/23 03:13 Pulse Ox 95 12/23/23 03:13 O2 Del Method Nasal Cannula 12/23/23 03:13 O2 Flow Rate 1 12/23/23 03:13 BMI result Body Mass Index 29.5 Const: General: comfortable, no acute distress and alert O rientation/consciousness: patient oriented x3 Resp: Effort & Inspection: normal respiratory effort GI: Inspection: No distended and Yes incision (clean) Palpation (GI): Soft to palpation, Tenderness to palpation present (GI) (mild incisional), no guarding and not rigid Skin: General skin exam: no rashes or lesions noted Neuro: General: patient oriented x3 and moves all extremities Objective Data Active Medications Al Hydroxide/Mg Hydroxide (Magnesium Hydrox/Alum Hydrox 30 Ml Oral.Susp) 30 ml PO Q6H PRN PRN Reason: Heartburn Fentanyl (Fentanyl Citrate/Pf 100 Mcg/2 Ml Vial) 25 mcg IVPUSH Q5M PRN; Protocol PRN Reason: Pain, Moderate(Pain Scale 4-6) Hydromorphone HCl (Hydromorphone Hcl 0.5 Mg/0.5 Ml Syringe) 0.5 mg IVPUSH Q3H PRN; Protocol PRN Reason: Pain, Severe (Pain Scale 7-10) Acetaminophen (Ofirmev) 1,000 mg in 100 mls @ 400 mls/hr IV Q6H COUNTS INCLUDE 234 BEDS AT THE [facility] Last Infusion: 12/23/23 01:37 Dose: Infused Documented By: CAROL Lactated Ringer's (Lr) 1,000 mls @ 80 mls/hr IVCONT .[id number] COUNTS INCLUDE 234 BEDS AT THE [facility] Last Admin: 12/23/23 04:20 Dose: 80 mls/hr Documented By: CAROL Melatonin (Melatonin 3 Mg Tablet) 6 mg PO BEDTIME PRN PRN Reason: Insomnia Ondansetron HCl (Ondansetron Hcl 4 Mg/2 Ml Vial) 4 mg IVPUSH Q6H PRN PRN Reason: Nausea Oxycodone HCl (Oxycodone Hcl Immed Release 5 Mg Tablet) 5 mg PO Q4H PRN PRN Reason: Pain, Moderate(Pain Scale 4-6) Sodium Chloride (0.9 % Sodium Chloride Flush 3 Ml Syringe) 3 ml IVFLUSH QSHIFT COUNTS INCLUDE 234 BEDS AT THE [facility] Last Admin: 12/22/23 20:05 Dose: 3 ml Documented By: CAROL Labs 12/23/23 06:35 12/23/23 06:35 Labs: Laboratory Results - last 24 hr 12/21/23 12/23/23 10:18 06:35 MCV 67.6 L MCH 20.4 L MCHC 30.2 L RDW 30.5 H Plt Count 228 MPV Not Reportable Absolute Nucleated RBC 0.000 Nucleated RBC % (auto) 0.0 Anion Gap 14 Estim Creat Clear Calc 86.7 Estimated GFR > 60 Fasting Glucose 136 H Calcium 8.6 Blood Type O Positive Antibody Screen NEGATIVE Crossmatch See Detail Procedures Date of Service Date of Service: 12/23/23 Progress Note: A&P Assessment and plan (1) Recurrent carcinoma of colon: Status: Acute Plan POD #1 s/p exploratory laparotomy, extensive enterolysis, takedown splenic flexure, transverse colectomy with primary colo colo anastomosis. Doing well post op, good pain control. Abd benign with appropriate post op tenderness, clean incision. Dc omalley. Cont clear liquids for now until evidence of GI function. Encouraged OOB/ambulation. Patient comfortable with plan. Time Spent With Patient Time: Total time managing care of this patient today ____ minutes. Quality Stroke Does the patient have a stroke diagnosis?: No VTE Prior VTE?: No VTE Risk Level:: Medical - moderate - high VTE Device Contraindication: N/A - Device Ordered VTE Drug Contraindication: Treatment Not Indicated
[2023-12-23] MEDS: 0.9 % Sodium Chloride Flush 3 ML SYRINGE IVFLUSH (08:05)
[2023-12-23 08:32] VITALS: BP 117/66; PULSE 67; RESP 20; TEMP 37; O2SAT 96
--- NOTE | 2023-12-23 10:28 | HO.PM.IMPN ---
Subjective Subjective Date of Service: 12/23/23 Interval History: abd pain manageable Physical Exam Vital Signs: Vital Signs: Last Vital Signs Temp 98.6 F 12/23/23 08:32 Pulse 67 12/23/23 08:32 Resp 20 12/23/23 08:32 BP 117/66 12/23/23 08:32 Pulse Ox 96 12/23/23 08:32 O2 Del Method Room Air 12/23/23 08:32 O2 Flow Rate 1 12/23/23 03:13 BMI result Body Mass Index 29.5 Const: General: comfortable, no acute distress and alert Orientation/consciousness: patient oriented x3 Resp: Effort & Inspection: normal respiratory effort GI: Inspection: No distended and Yes incision (clean) Palpation (GI): Soft to palpation, Tenderness to palpation present (GI) (mild incisional), no guarding and not rigid Skin: General skin exam: no rashes or lesions noted Neuro: General: patient oriented x3 and moves all extremities Objective Data Active Medications Al Hydroxide/Mg Hydroxide (Magnesium Hydrox/Alum Hydrox 30 Ml Oral.Susp) 30 ml PO Q6H PRN PRN Reason: Heartburn Fentanyl (Fentanyl Citrate/Pf 100 Mcg/2 Ml Vial) 25 mcg IVPUSH Q5M PRN; Protocol PRN Reason: Pain, Moderate(Pain Scale 4-6) Hydromorphone HCl (Hydromorphone Hcl 0.5 Mg/0.5 Ml Syringe) 0.5 mg IVPUSH Q3H PRN; Protocol PRN Reason: Pain, Severe (Pain Scale 7-10) Acetaminophen (Ofirmev) 1,000 mg in 100 mls @ 400 mls/hr IV Q6H [facility] Last Infusion: 12/23/23 08:26 Dose: Infused Documented By: JAZMÍN Lactated Ringer's (Lr) 1,000 mls @ 80 mls/hr IVCONT .[id number] [facility] Last Admin: 12/23/23 04:20 Dose: 80 mls/hr Documented By: CAROL Melatonin (Melatonin 3 Mg Tablet) 6 mg PO BEDTIME PRN PRN Reason: Insomnia Ondansetron HCl (Ondansetron Hcl 4 Mg/2 Ml Vial) 4 mg IVPUSH Q6H PRN PRN Reason: Nausea Oxycodone HCl (Oxycodone Hcl Immed Release 5 Mg Tablet) 5 mg PO Q4H PRN PRN Reason: Pain, Moderate(Pain Scale 4-6) Sodium Chloride (0.9 % Sodium Chloride Flush 3 Ml Syringe) [facility] Admin: 12/23/23 08:05 Dose: 3 ml Documented By: JAZMÍN Labs 12/23/23 06:35 12/23/23 06:35 Labs: Laboratory Results - last 24 hr 12/21/23 12/23/23 10:18 06:35 MCV 67.6 L MCH 20.4 L MCHC 30.2 L RDW 30.5 H Plt Count 228 MPV Not Reportable Absolute Nucleated RBC 0.000 Nucleated RBC % (auto) 0.0 Anion Gap 14 Estim Creat Clear Calc 86.7 Estimated GFR > 60 Fasting Glucose 136 H Calcium 8.6 Blood Type O Positive Antibody Screen NEGATIVE Crossmatch See Detail Assessment and Plan (1) Colon cancer: Status: Acute (2) GERD (gastroesophageal reflux disease): Status: Acute (3) Severe anemia: Status: Acute (4) GI (gastrointestinal bleed): Status: Acute Plan 72M PMH colon CA status post resection (s/p colostomy bag --> reanastomosis s/p chemotherapy) presented with dizziness, found to have anemia with new finding of colonic mass Symptomatic acute and chronic blood loss anemia due to invasive adenocarcinoma in transverse colon s/p 2 units prbc, hgb stable oncology input appreciated, Chemotherapy after surgery POD #1 s/p exploratory laparotomy, extensive enterolysis, takedown splenic flexure, transverse colectomy with primary colo colo anastomosis. 12/22/23 on clears, awaiting return of gi function DVT prophylaxis: SCDs due to anemia Code status: Full reason for continued hospitalization: awaiting return of gi function Quality Stroke Does the patient have a stroke diagnosis?: No VTE Prior VTE?: No VTE Risk Level:: Medical - moderate - high VTE Device Contraindication: N/A - Device Ordered VTE Drug Contraindication: Treatment Not Indicated
[2023-12-23 11:19] VITALS: BP 127/60; PULSE 85; RESP 20; TEMP 37.6; O2SAT 94
--- NOTE | 2023-12-23 14:50 | MHC.CM.PN ---
EMR reviewed and per MD rounds, pt is not medically cleared for D/C due to management of post-op care, and awaiting return of GI function. CM will continue to follow.
--- NOTE | 2023-12-23 15:02 | HO.POSTANES ---
Post Anesthesia Evaluation Post Anesthesia Evaluation Date of Service: 12/23/23 Vital Signs: Vital Signs Temp Pulse Resp BP Pulse Ox O2 Del Method O2 Flow Rate 12/23/23 11:19 99.7 F 85 20 127/60 94 Room Air 12/23/23 08:32 98.6 F 67 20 117/66 96 Room Air 12/23/23 03:13 97.6 F 65 18 122/61 95 Nasal Cannula 1 Anesthesia: Nerve Block and General Endotracheal-GETA Mental Status: Awake Pain Control: Satisfactory Nausea/Vomiting: None Hydration: Adequate Anesthesia-Related Issues: No Anes. Related Issues
[2023-12-23 15:35] VITALS: BP 124/60; PULSE 92; RESP 18; TEMP 36.8; O2SAT 96
[2023-12-23 20:00] VITALS: BP 138/69; PULSE 88; RESP 20; TEMP 36.6
[2023-12-23 23:54] VITALS: BP 129/67; PULSE 71; RESP 20; TEMP 36.8; O2SAT 96
[2023-12-24] VITALS (9 sets, daily range): BP systolic 127–154; BP diastolic 67–88; PULSE 63–91; RESP 16–20; TEMP 36.1–37; O2SAT 96–98
[2023-12-24] MEDS: Acetaminophen 1,000 MG/100 ML PIGGYBACK 400 MG IV ×4 (01:26→19:56)
[2023-12-24] MEDS: Lactated Ringers 1,000 ML 80 ML IVCONT ×2 (05:50→16:43)
[2023-12-24 06:12] LABS: Hematocrit 32.6 % (42.0-52.0); Hemoglobin 9.8 g/dl (14.0-18.0); Mean Corpuscular HGB Conc 30.1 g/dl (31.0-36.0); Mean Corpuscular Hemoglobin 20.4 pg (27.0-33.0); Mean Corpuscular Volume 67.9 fL (80.0-98.0); Mean Platelet Volume 9.2 fL (9.4-12.4); Platelet Count 228 X10*3/uL (160-400); Red Cell Distribution Width 30.6 % (11.0-16.0); White Blood Count 13.6 X10*3/uL (4.8-10.8)
[2023-12-24 06:26] LABS: Anion Gap 11 (12-20); Blood Urea Nitrogen 12 mg/dL (9-16); Calcium 8.5 mg/dL (8.4-10.2); Carbon Dioxide 26 mmol/L (22-29); Chloride 109 mmol/L (96-108); Creatinine Clr Calc Pharmacy 90.1; Estimated Glomerular Filt Rate > 60; Glucose Fasting 95 mg/dL (60-99); Potassium 3.5 mmol/L (3.3-5.1); Sodium 142 mmol/L (135-145)
--- NOTE | 2023-12-24 07:53 | PM.PNGS ---
Subjective Subjective Date of Service: 12/24/23 Interval history: POD #2 s/p transverse colectomy for recurrent ca. Patient comfortable and tolerating clear liquids. Ambulating well. Physical Exam Vital Signs: Vital Signs: Last Vital Signs Temp 98.6 F 12/24/23 07:34 Pulse 78 12/24/23 07:34 Resp 18 12/24/23 07:34 BP 152/75 H 12/24/23 07:34 Pulse Ox 96 12/24/23 07:34 O2 Del Method Room Air 12/24/23 07:34 O2 Flow Rate 1 12/23/23 03:13 BMI result Body Mass Index 29.5 Const: General: comfortable, no acute distress and alert Orientation/consciousness: patient oriented x3 Resp: Effort & Inspection: normal respiratory effort GI: Inspection: No distended and Yes incision (Clean, dry and intact, intact Steri-Strips.) Palpation (GI): Soft to palpation, Tenderness to palpation present (GI) (mild incisional), no guarding and not rigid Abdomen image: 1. Incision upper abdomen Skin: General skin exam: no rashes or lesions noted Neuro: General: patient oriented x3 and moves all extremities Objective Data Active Medications Al Hydroxide/Mg Hydroxide (Magnesium Hydrox/Alum Hydrox 30 Ml Oral.Susp) 30 ml PO Q6H PRN PRN Reason: Heartburn Fentanyl (Fentanyl Citrate/Pf 100 Mcg/2 Ml Vial) 25 mcg IVPUSH Q5M PRN; Protocol PRN Reason: Pain, Moderate(Pain Scale 4-6) Hydromorphone HCl (Hydromorphone Hcl 0.5 Mg/0.5 Ml Syringe) 0.5 mg IVPUSH Q3H PRN; Protocol PRN Reason: Pain, Severe (Pain Scale 7-10) Acetaminophen (Ofirmev) 1,000 mg in 100 mls @ 400 mls/hr IV Q6H [facility] Last Infusion: 12/24/23 02:25 Dose: Infused Documented By: CORNELL Lactated Ringer's (Lr) 1,000 mls @ 80 mls/hr IVCONT .[id number] [facility] Last Admin: 12/24/23 05:50 Dose: 80 mls/hr Documented By: CORNELL Melatonin (Melatonin 3 Mg Tablet) 6 mg PO BEDTIME PRN PRN Reason: Insomnia Ondansetron HCl (Ondansetron Hcl 4 Mg/2 Ml Vial) 4 mg IVPUSH Q6H PRN PRN Reason: Nausea Oxycodone HCl (Oxycodone Hcl Immed Release 5 Mg Tablet) 5 mg PO Q4H PRN PRN Reason: Pain, Moderate(Pain Scale 4-6) Sodium Chloride (0.9 % Sodium Chloride Flush 3 Ml Syringe) 3 ml IVFLUSH QSHIFT [facility] Last Admin: 12/24/23 01:08 Dose: Not Given Documented By: CORNELL Non-Admin Reason: Previously Administered Labs 12/24/23 06:02 12/24/23 06:02 Labs: Laboratory Results - last 24 hr 12/24/23 06:02 MCV 67.9 L MCH 20.4 L MCHC 30.1 L RDW 30.6 H Plt Count 228 MPV 9.2 L Absolute Nucleated RBC 0.000 Nucleated RBC % (auto) 0.0 Anion Gap 11 L Estim Creat Clear Calc 90.1 Estimated GFR > 60 Fasting Glucose 95 Calcium 8.5 Procedures Date of Service Date of Service: 12/24/23 Progress Note: A&P Assessment and plan (1) Recurrent carcinoma of colon: Status: Acute Plan POD #2 s/p exploratory laparotomy, extensive enterolysis, takedown splenic flexure, transverse colectomy with primary colo colo anastomosis. Doing well post op, good pain control. Tolerating clear liquids. Will advance to a regular soft diet. Encouraged OOB/ambulation, incentive spirometry. Time Spent With Patient Time: Total time managing care of this patient today ____ minutes. Quality Stroke Does the patient have a stroke diagnosis?: No VTE Prior VTE?: No VTE Risk Level:: Medical - moderate - high VTE Device Contraindication: N/A - Device Ordered VTE Drug Contraindication: Treatment Not Indicated
[2023-12-24] MEDS: 0.9 % Sodium Chloride Flush 3 ML SYRINGE IVFLUSH ×2 (08:40→16:44)
--- NOTE | 2023-12-24 10:50 | HO.PM.IMPN ---
Subjective Subjective Date of Service: 12/24/23 Interval History: abd pain manageable Physical Exam Vital Signs: Vital Signs: Last Vital Signs Temp 98.6 F 12/24/23 07:34 Pulse 75 12/24/23 09:38 Resp 18 12/24/23 07:34 BP 152/75 H 12/24/23 07:34 Pulse Ox 96 12/24/23 07:34 O2 Del Method Room Air 12/24/23 07:34 O2 Flow Rate 1 12/23/23 03:13 BMI result Body Mass Index 29.5 Const: General: comfortable, no acute distress and alert Orientation/consciousness: patient oriented x3 Resp: Effort & Inspection: normal respiratory effort GI: Inspection: No distended and Yes incision (Clean, dry and intact, intact Steri-Strips.) Palpation (GI): Soft to palpation, Tenderness to palpation present (GI) (mild incisional), no guarding and not rigid Skin: General skin exam: no rashes or lesions noted Neuro: General: patient oriented x3 and moves all extremities Objective Data Active Medications Al Hydroxide/Mg Hydroxide (Magnesium Hydrox/Alum Hydrox 30 Ml Oral.Susp) 30 ml PO Q6H PRN PRN Reason: Heartburn Hydromorphone HCl (Hydromorphone Hcl 0.5 Mg/0.5 Ml Syringe) 0.5 mg IVPUSH Q3H PRN; Protocol PRN Reason: Pain, Severe (Pain Scale 7-10) Acetaminophen (Ofirmev) 1,000 mg in 100 mls @ 400 mls/hr IV Q6H [facility] Last Infusion: 12/24/23 09:09 Dose: Infused Documented By: SHELDON Lactated Ringer's (Lr) 1,000 mls @ 80 mls/hr IVCONT .[id number] [facility] Last Admin: 12/24/23 05:50 Dose: 80 mls/hr Documented By: CORNELL Melatonin (Melatonin 3 Mg Tablet) 6 mg PO BEDTIME PRN PRN Reason: Insomnia Ondansetron HCl (Ondansetron Hcl 4 Mg/2 Ml Vial) 4 mg IVPUSH Q6H PRN PRN Reason: Nausea Oxycodone HCl (Oxycodone Hcl Immed Release 5 Mg Tablet) 5 mg PO Q4H PRN PRN Reason: Pain, Moderate(Pain Scale 4-6) Sodium Chloride (0.9 % Sodium Chloride Flush 3 Ml Syringe) 3 ml IVFLUSH QSHIFT [facility] Last Admin: 12/24/23 08:40 Dose: 3 ml Documented By: SHELDON Labs 12/24/23 06:02 12/24/23 06:02 Labs: Laboratory Results - last 24 hr 12/24/23 06:02 MCV 67.9 L MCH 20.4 L MCHC 30.1 L RDW 30.6 H Plt Count 228 MPV 9.2 L Absolute Nucleated RBC 0.000 Nucleated RBC % (auto) 0.0 Anion Gap 11 L Estim Creat Clear Calc 90.1 Estimated GFR > 60 Fasting Glucose 95 Calcium 8.5 Assessment and Plan (1) Colon cancer: Status: Acute (2) GERD (gastroesophageal reflux disease): Status: Acute (3) Severe anemia: Status: Acute (4) GI (gastrointestinal bleed): Status: Acute Plan 72M PMH colon CA status post resection (s/p colostomy bag --> reanastomosis s/p chemotherapy) presented with dizziness, found to have anemia with new finding of colonic mass Symptomatic acute and chronic blood loss anemia due to 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 12/22/23 advancing to solids, awaiting return of gi function DVT prophylaxis: SCDs due to anemia Code status: Full reason for continued hospitalization: awaiting return of gi function Quality Stroke Does the patient have a stroke diagnosis?: No VTE Prior VTE?: No VTE Risk Level:: Medical - moderate - high VTE Device Contraindication: N/A - Device Ordered VTE Drug Contraindication: Treatment Not Indicated
[2023-12-25] MEDS: Acetaminophen 1,000 MG/100 ML PIGGYBACK 400 MG IV ×3 (02:10→13:42)
[2023-12-25 03:56] VITALS: BP 142/85; PULSE 81; RESP 18; TEMP 36.1; O2SAT 96
[2023-12-25] MEDS: Lactated Ringers 1,000 ML 80 ML IVCONT ×2 (06:32→14:05)
[2023-12-25 07:15] LABS: Hemoglobin 9.9 g/dl (14.0-18.0)
[2023-12-25 07:17] LABS: Mean Corpuscular Hemoglobin 20.8 pg (27.0-33.0); Mean Corpuscular Volume 69.5 fL (80.0-98.0); Platelet Count 219 X10*3/uL (160-400); Red Blood Count 4.75 X10*6/uL (4.60-5.80); Red Cell Distribution Width 30.9 % (11.0-16.0); White Blood Count 8.6 X10*3/uL (4.8-10.8)
[2023-12-25 07:25] LABS: PLT ABN DIST 1
[2023-12-25 07:33] VITALS: BP 136/74; PULSE 80; RESP 18; TEMP 36.3; O2SAT 96
[2023-12-25 07:34] LABS: Anion Gap 11 (12-20); Blood Urea Nitrogen 10 mg/dL (9-16); Calcium 8.4 mg/dL (8.4-10.2); Carbon Dioxide 26 mmol/L (22-29); Chloride 108 mmol/L (96-108); Creatinine Clr Calc Pharmacy 97.8; Estimated Glomerular Filt Rate > 60; Glucose Fasting 91 mg/dL (60-99); Potassium 3.6 mmol/L (3.3-5.1); Sodium 141 mmol/L (135-145)
[2023-12-25] MEDS: 0.9 % Sodium Chloride Flush 3 ML SYRINGE IVFLUSH ×2 (08:01→16:32)
--- NOTE | 2023-12-25 08:57 | P.PNGS_ITS ---
Subjective Subjective Date of Service: 12/25/23 Interval history: Tolerating regular diet without nausea or vomiting; small BM reported Physical Exam 2 Vital Signs: Vital Signs: Last Vital Signs Temp 97.4 F 12/25/23 07:33 Pulse 80 12/25/23 07:33 Resp 18 12/25/23 07:33 BP 136/74 12/25/23 07:33 Pulse Ox 96 12/25/23 07:33 O2 Del Method Room Air 12/25/23 07:33 O2 Flow Rate 1 12/23/23 03:13 BMI result Body Mass Index 29.5 Const: General: comfortable, no acute distress and alert O rientation/consciousness: patient oriented x3 Resp: Effort & Inspection: normal respiratory effort GI: Inspection: No distended and Yes incision (Clean, dry and intact, intact Steri-Strips.) Palpation (GI): Soft to palpation, Tenderness to palpation present (GI) (mild incisional), no guarding and not rigid Skin: General skin exam: no rashes or lesions noted Neuro: General: patient oriented x3 and moves all extremities Objective Data Active Medications Al Hydroxide/Mg Hydroxide (Magnesium Hydrox/Alum Hydrox 30 Ml Oral.Susp) 30 ml PO Q6H PRN PRN Reason: Heartburn Hydromorphone HCl (Hydromorphone Hcl 0.5 Mg/0.5 Ml Syringe) 0.5 mg IVPUSH Q3H PRN; Protocol PRN Reason: Pain, Severe (Pain Scale 7-10) Acetaminophen (Ofirmev) 1,000 mg in 100 mls @ 400 mls/hr IV Q6H [facility] Last Infusion: 12/25/23 07:39 Dose: Infused Documented By: SHELDON Lactated Ringer's (Lr) 1,000 mls @ 80 mls/hr IVCONT .[id number] [facility] Last Admin: 12/25/23 06:32 Dose: 80 mls/hr Documented By: CORNELL Melatonin (Melatonin 3 Mg Tablet) 6 mg PO BEDTIME PRN PRN Reason: Insomnia Ondansetron HCl (Ondansetron Hcl 4 Mg/2 Ml Vial) 4 mg IVPUSH Q6H PRN PRN Reason: Nausea Oxycodone HCl (Oxycodone Hcl Immed Release 5 Mg Tablet) 5 mg PO Q4H PRN PRN Reason: Pain, Moderate(Pain Scale 4-6) Sodium Chloride (0.9 % Sodium Chloride Flush 3 Ml Syringe) 3 ml IVFLUSH QSHIFT [facility] Last Admin: 12/25/23 08:01 Dose: 3 ml Documented By: SHELDON Labs 12/25/23 06:31 12/25/23 06:31 Labs: Laboratory Results - last 24 hr 12/25/23 06:31 MCV 69.5 L MCH 20.8 L MCHC 30.0 L RDW 30.9 H Plt Count 219 MPV Not Reportable Absolute Nucleated RBC 0.000 Nucleated RBC % (auto) 0.0 Anion Gap 11 L Estim Creat Clear Calc 97.8 Estimated GFR > 60 Fasting Glucose 91 Calcium 8.4 Procedures Date of Service Date of Service: 12/25/23 Progress Note: A&P Assessment and plan (1) Recurrent carcinoma of colon: Status: Acute Plan POD #3 s/p exploratory laparotomy, extensive enterolysis, takedown splenic flexure, transverse colectomy with primary colo colo anastomosis. Doing well post op, good pain control. Tolerating regular diet. Encouraged OOB/ambulation, incentive spirometry. If discharge, patient should follow up with Dr. Borden in 1-2 weeks. Time Spent With Patient Time: Total time managing care of this patient today ____ minutes. Quality Stroke Does the patient have a stroke diagnosis?: No VTE Prior VTE?: No VTE Risk Level:: Medical - moderate - high VTE Device Contraindication: N/A - Device Ordered VTE Drug Contraindication: Treatment Not Indicated
--- NOTE | 2023-12-25 10:07 | P.PNIM_ITS ---
Subjective Subjective Date of Service: 12/25/23 Interval History: no bm Physical Exam 2 Vital Signs: Vital Signs: Last Vital Signs Temp 97.4 F 12/25/23 07:33 Pulse 80 12/25/23 07:33 Resp 18 12/25/23 07:33 BP 136/74 12/25/23 07:33 Pulse Ox 96 12/25/23 07:33 O2 Del Method Room Air 12/25/23 07:33 O2 Flow Rate 1 12/23/23 03:13 BMI result Body Mass Index 29.5 Const: General: comfortable, no acute distress and alert O rientation/consciousness: patient oriented x3 Resp: Effort & Inspection: normal respiratory effort GI: Inspection: No distended and Yes incision (Clean, dry and intact, intact Steri-Strips.) Palpation (GI): Soft to palpation, Tenderness to palpation present (GI) (mild incisional), no guarding and not rigid Skin: General skin exam: no rashes or lesions noted Neuro: General: patient oriented x3 and moves all extremities Objective Data Active Medications Al Hydroxide/Mg Hydroxide (Magnesium Hydrox/Alum Hydrox 30 Ml Oral.Susp) 30 ml PO Q6H PRN PRN Reason: Heartburn Hydromorphone HCl (Hydromorphone Hcl 0.5 Mg/0.5 Ml Syringe) 0.5 mg IVPUSH Q3H PRN; Protocol PRN Reason: Pain, Severe (Pain Scale 7-10) Acetaminophen (Ofirmev) 1,000 mg in 100 mls @ 400 mls/hr IV Q6H [facility] Last Infusion: 12/25/23 07:39 Dose: Infused Documented By: SHELDON Lactated Ringer's (Lr) 1,000 mls @ 80 mls/hr IVCONT .[id number] [facility] Last Admin: 12/25/23 06:32 Dose: 80 mls/hr Documented By: CORNELL Melatonin (Melatonin 3 Mg Tablet) 6 mg PO BEDTIME PRN PRN Reason: Insomnia Ondansetron HCl (Ondansetron Hcl 4 Mg/2 Ml Vial) 4 mg IVPUSH Q6H PRN PRN Reason: Nausea Oxycodone HCl (Oxycodone Hcl Immed Release 5 Mg Tablet) 5 mg PO Q4H PRN PRN Reason: Pain, Moderate(Pain Scale 4-6) Sodium Chloride (0.9 % Sodium Chloride Flush 3 Ml Syringe) 3 ml IVFLUSH QSHIFT [facility] Last Admin: 12/25/23 08:01 Dose: 3 ml Documented By: SHELDON Labs 12/25/23 06:31 12/25/23 06:31 Labs: Laboratory Results - last 24 hr 12/25/23 06:31 MCV 69.5 L MCH 20.8 L MCHC 30.0 L RDW 30.9 H Plt Count 219 MPV Not Reportable Absolute Nucleated RBC 0.000 Nucleated RBC % (auto) 0.0 Anion Gap 11 L Estim Creat Clear Calc 97.8 Estimated GFR > 60 Fasting Glucose 91 Calcium 8.4 Assessment and Plan (1) Colon cancer: Status: Acute (2) GERD (gastroesophageal reflux disease): Status: Acute (3) Severe anemia: Status: Acute (4) GI (gastrointestinal bleed): Status: Acute Plan 72M PMH colon CA status post resection (s/p colostomy bag --> reanastomosis s/p chemotherapy) presented with dizziness, found to have anemia with new finding of colonic mass Symptomatic acute and chronic blood loss anemia due to 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 12/22/23 advancing to solids, awaiting return of gi function DVT prophylaxis: SCDs due to anemia Code status: Full reason for continued hospitalization: awaiting return of gi function Quality Stroke Does the patient have a stroke diagnosis?: No VTE Prior VTE?: No VTE Risk Level:: Medical - moderate - high VTE Device Contraindication: N/A - Device Ordered VTE Drug Contraindication: Treatment Not Indicated
[2023-12-25 11:34] VITALS: BP 134/82; PULSE 87; RESP 18; TEMP 36.6; O2SAT 96
[2023-12-25 16:00] VITALS: BP 127/81; PULSE 98; RESP 18; TEMP 36.2; O2SAT 97
[2023-12-25 20:00] VITALS: BP 126/66; PULSE 87; RESP 19; TEMP 36.6; O2SAT 97
[2023-12-25 23:36] VITALS: BP 151/82; PULSE 76; RESP 20; TEMP 36.1; O2SAT 97
[2023-12-26] MEDS: Lactated Ringers 1,000 ML 80 ML IVCONT (02:43)
[2023-12-26 03:10] VITALS: BP 137/75; PULSE 77; RESP 19; TEMP 36.7; O2SAT 97
[2023-12-26 08:00] VITALS: BP 133/74; PULSE 109; RESP 20; TEMP 36.6; O2SAT 98
[2023-12-26] MEDS: 0.9 % Sodium Chloride Flush 3 ML SYRINGE IVFLUSH (08:33)
--- NOTE | 2023-12-26 08:59 | PM.DS ---
DS: Providers Provider Date of Service: 12/26/23 Date of admission: 12/16/23 21:49 Primary care physician: Nelson Estevez MD Consults: 12/17/23 00:50 Consult to Gastroenterology Routine Consulting Provider: Ramona Hunter Reason for consultation: Invasive adenocarcinoma of the colon + anemia Has provider been notified: No Consult to General Surgery Routine Consulting Provider: [facility] Reason for consultation: Invasive adenocarcinoma of the colon Has provider been notified: No 12/19/23 08:39 Consult to Hematology / Oncology Routine Consulting Provider: Remigio Persaud Reason for consultation: Adenocarcinoma of colon with bleeding. for eval and rec. DS: Diagnosis Discharge Diagnosis (1) Recurrent carcinoma of colon: Status: Acute DS: Summary Hospital Course Hospital Course: from initial hpi: 72 years old man with past medical history significant for colon CA status post resection (s/p colostomy bag --> reanastomosis s/p chemotherapy in 2005) and GERD presents to the emergency department complaining of dizziness over the last few days. His sister who was at bedside commented that she noted he is very pale. The patient denies any headache, weakness, abdominal pain, nausea, vomiting or diarrhea. He denied black stools. Last bowel movement was this morning and was normal. There is no fever or chills reported. He denies any chest pain or shortness on breath. Denied weight loss. He denied any acute urinary symptoms. On November 28 of this year he underwent a colonoscopy and was found to have a large obstructing mass (>80%). Biopsy is consistent with invasive adenocarcinoma. In the ED, he was found to have normal vital signs. Blood workup is remarkable for hemoglobin 6.9 and hematocrit 25.6. There are no significant electrolyte imbalances. Glucose 147. Stool for occult blood is positive. ED tx: Pantoprazole 80 mg IV, NS 2 L bolus. Two units PRBCs ordered. hospital course: Patient was admitted for symptomatic acute on chronic blood loss anemia due to invasive adenocarcinoma of the transverse colon. Received a total of 2 units PRBCs and hemoglobin was stable. Patient underwent exploratory laparotomy, extensive enterolysis, takedown splenic flexure, transverse colectomy with primary colocolo anastomosis on 12/22/2023. Postop period was unremarkable. Patient was advanced to solids and had bowel movement. He will follow up with Oncology and surgery. Time Attestation Discharge Coordination Time: discharge time of ____ minutes Quality: Safe Use of Opioids Does Pt have an Active Cancer Diagnosis on the Problem List?: Yes Opioid Measure Date for [facility] Report: 11/26/23 Opioid Measure Time for [facility] Report: 08:59 Quality: Stroke Does the patient have a stroke diagnosis?: No Physical Exam Vital Signs: Vital Signs: Last Vital Signs Temp 97.8 F 12/26/23 08:00 Pulse 109 H 12/26/23 08:00 Resp 20 12/26/23 08:00 BP 133/74 12/26/23 08:00 Pulse Ox 98 12/26/23 08:00 O2 Del Method Room Air 12/26/23 08:00 O2 Flow Rate 1 12/23/23 03:13 BMI result Body Mass Index 29.5 Const: General: comfortable, no acute distress and alert Orientation/consciousness: patient oriented x3 Resp: Effort & Inspection: normal respiratory effort GI: Inspection: No distended and Yes incision (Clean, dry and intact, intact Steri-Strips.) Palpation (GI): Soft to palpation, Tenderness to palpation present (GI) (mild incisional), no guarding and not rigid Skin: General skin exam: no rashes or lesions noted Neuro: General: patient oriented x3 and moves all extremities DS: Data Data Completed and Pending Pending studies at discharge: Pending at discharge 12/22/23 13:04 Surgical [PTH] Routine Discharge Plan Discharge Anticipated Discharge Date/Time: 12/26/23 08:56 Patient Disposition: Home, Self-Care Discharge Diagnosis: colon mass, anemia Referrals: Nelson Estevez MD [Primary Care Provider] - 1 Week Tee Borden MD [Physician] - 1 Week Discharge Medications: New oxycodone 5 mg tablet 5 mg PO Q4H PRN (Reason: pain (scale score 7-10)) Qty: 24 0RF Rx Instructions: Partial Fill upon patient request. Continued polyethylene glycol 3350 [Miralax] 17 gram/dose Powder 17 g PO DAILY omeprazole 20 mg Tablet,Delayed Release (Dr/Ec) 20 mg PO DAILY PRN (Reason: gi upset) Discharge Orders: Discharge Order (Routine); Ordered 12/26/23 Ordered By: Glenn Saldana Diet: Advance to usual diet Activity on Discharge: No heavy lifting Stand Alone Forms: Patient Portal Discharge page Activity Restrictions/Additional Instructions: Ok to shower after your surgery. You have steri strips (small white cloth strips) covering your incision- these will fall off ~1 week. Follow up in office with Dr. Borden in 1 week. ([phone]) No heavy lifting (>10lbs) or strenuous activity! Call Your Doctor If: -Your temperature exceeds 101.5? F -You experience excessive pain or swelling -You have an unexpected reaction to medication -You have excessive bleeding -You experience continued vomiting/nausea -Your incision begins to separate -Your incision shows signs of infection such as increased redness, swelling, excessive pain, drainage (light blood or clear fluid is normal) or heat Care Plan Goals: recovery Health Concerns: colon mass Plan of Treatment: follow up with surgery and oncology Assessment: see above
--- NOTE | 2023-12-26 10:33 | P.PNGS_ITS ---
Subjective Subjective Date of Service: 12/26/23 Interval history: Uneventful weekend. Tolerating diet. Having bowel movements. Ambulating. Minimal incisional discomfort Physical Exam 2 Vital Signs: Vital Signs: Last Vital Signs Temp 97.8 F 12/26/23 08:00 Pulse 109 H 12/26/23 08:00 Resp 20 12/26/23 08:00 BP 133/74 12/26/23 08:00 Pulse Ox 98 12/26/23 08:00 O2 Del Method Room Air 12/26/23 08:00 O2 Flow Rate 1 12/23/23 03:13 BMI result Body Mass Index 29.5 GI: Other: Abdomen soft incision clean dry and intact Objective Data Active Medications Al Hydroxide/Mg Hydroxide (Magnesium Hydrox/Alum Hydrox 30 Ml Oral.Susp) 30 ml PO Q6H PRN PRN Reason: Heartburn Hydromorphone HCl (Hydromorphone Hcl 0.5 Mg/0.5 Ml Syringe) 0.5 mg IVPUSH Q3H PRN; Protocol PRN Reason: Pain, Severe (Pain Scale 7-10) Melatonin (Melatonin 3 Mg Tablet) 6 mg PO BEDTIME PRN PRN Reason: Insomnia Ondansetron HCl (Ondansetron Hcl 4 Mg/2 Ml Vial) 4 mg IVPUSH Q6H PRN PRN Reason: Nausea Oxycodone HCl (Oxycodone Hcl Immed Release 5 Mg Tablet) 5 mg PO Q4H PRN PRN Reason: Pain, Moderate(Pain Scale 4-6) Sodium Chloride (0.9 % Sodium Chloride Flush 3 Ml Syringe) [facility] Last Admin: 12/26/23 08:33 Dose: 3 ml Documented By: AMANDEEP Valdez 12/25/23 06:31 12/25/23 06:31 Procedures Date of Service Date of Service: 12/26/23 Progress Note: A&P Assessment and plan (1) Recurrent carcinoma of colon: Status: Acute Plan Discussed with patient's hospitalist. Can DC home. Will arrange for surgical discharge instructions. Time Spent With Patient Time: Total time managing care of this patient today ____ minutes. Quality Stroke Does the patient have a stroke diagnosis?: No VTE Prior VTE?: No VTE Risk Level:: Medical - moderate - high VTE Device Contraindication: N/A - Device Ordered VTE Drug Contraindication: Treatment Not Indicated
[2023-12-26 11:54] VITALS: BP 129/74; PULSE 99; RESP 20; TEMP 36.9; O2SAT 99
--- NOTE | 2023-12-26 12:43 | MHC.CM.PN ---
Second IMM given 3/. Pt is medically cleared for D/C home self-care, pts daughter to transport him home.
--- NOTE | 2024-01-02 13:32 | W.PM.OPN ---
Operative Note Operative Note Date of Service: 12/22/23 Colon Resection Tumor location: Transverse colon Extent of lymphovascular resection Transverse colon: Anastomotic recurrence status post prior bowel surgery appr 12 yrs ago General Surg. - Synoptic Notes Colon Resection Tumor location: Transverse colon Extent of Lymphovascular Resection: Transverse colon: Anastomotic recurrence status post prior bowel surgery appr 12 yrs ago
== END 2023-12-26 13:15 | disposition home or self-care (01) | DRG 330 ==
LOC: HO.ED 21:09 → HO.EDOVER 21:53 → HO.IMC 12-17 11:44
PROVIDERS: Internal Medicine Medical Oncology; Physician Assistant Medical; Student in an Organized Health Care Education/Training Program; Surgery; Admitting Provider Internal Medicine; Emergency Provider Internal Medicine; PCP Internal Medicine; Visit Provider Internal Medicine
PROC: 0DBL0ZZ Excision of Transverse Colon, Open Approach (ICD-10-PCS; CPT 49000; principal; 2023-12-22 09:50)
DX: C18.4 Malignant neoplasm of transverse colon (principal); D62 Acute posthemorrhagic anemia; D63.0 Anemia in neoplastic disease; I10 Essential (primary) hypertension; K21.9 Gastro-esophageal reflux disease without esophagitis; G89.18 Other acute postprocedural pain; K66.0 Peritoneal adhesions (postprocedural) (postinfection)
CPT/HCPCS: 36415; 74176; 80048; 80053; 82272; 82378; 83540; 83690; 83735; 85014; 85018; 85025; 85027; 85610; 86850; 86900; 86901; 86923; 88304; 88309; 88341; 88342; 99285; C1758; C9113; J0131; J0171; J0665; J1100; J1596; J2250; J2405; J2704; J2795; J3010; J7120; P9016

== ENCOUNTER → 2023-12-16 21:49 | Outpatient (BNV) | payer MEDICAID, SELFPAY | PROVIDERS: Admitting Provider Internal Medicine; Emergency Provider Internal Medicine; PCP Internal Medicine; Visit Provider Internal Medicine | DX: C18.4 Malignant neoplasm of transverse colon (principal); D50.0 Iron deficiency anemia secondary to blood loss (chronic) | CPT/HCPCS: 99223; 99232; 99233; 99238; 99499 ==

== ENCOUNTER → 2023-12-16 21:49 | Outpatient (BNV) | payer MEDICAID, SELFPAY | PROVIDERS: Admitting Provider Internal Medicine; Emergency Provider Internal Medicine; PCP Internal Medicine; Visit Provider Surgery | DX: C18.9 Malignant neoplasm of colon, unspecified (principal) | CPT/HCPCS: 44139; 44140; 99024; 99222; 99232; 99233 ==

== ENCOUNTER → 2023-12-16 21:49 | Outpatient (BNV) | payer MEDICAID, SELFPAY | PROVIDERS: Admitting Provider Internal Medicine; Emergency Provider Internal Medicine; PCP Internal Medicine; Visit Provider Internal Medicine Gastroenterology | DX: C18.4 Malignant neoplasm of transverse colon (principal); D64.9 Anemia, unspecified | CPT/HCPCS: 99223 ==

== ENCOUNTER → 2023-12-16 21:49 | Outpatient (BNV) | payer MEDICAID, SELFPAY | PROVIDERS: Admitting Provider Internal Medicine; Emergency Provider Internal Medicine; PCP Internal Medicine; Visit Provider Internal Medicine Medical Oncology | DX: C18.4 Malignant neoplasm of transverse colon (principal) | CPT/HCPCS: 99222 ==

== ENCOUNTER 2024-01-02 12:49 | Outpatient (REF) | payer MEDICAID, SELFPAY | END 2024-01-02 12:50 | disposition home or self-care (01) | LOC: HO.LNP 12:49 | PROVIDERS: Visit Provider Surgery | DX: C78.80 Secondary malignant neoplasm of unspecified digestive organ (principal); Z48.815 Encounter for surgical aftercare following surgery on the digestive system; Z90.49 Acquired absence of other specified parts of digestive tract | CPT/HCPCS: 87070; 87073; 87077; 87185; 87186; 87205; 99212 ==

== ENCOUNTER 2024-01-02 12:49 | Outpatient (AMB) | payer MEDICAID, SELFPAY ==
[2024-01-02 12:58] VITALS: BP 156/78; PULSE 101
--- NOTE | 2024-01-02 12:58 | MHC.OFFVIS ---
Intake Vital Signs 01/02/24 12:58 Weight 172 lb BP 156/78 H Blood Pressure Location Rt brachial Position Sitting Pulse 101 H Intake Visit Reasons: S/p exp lap, colectomy Intake Note: Patient here s/p exp lap colectomy on 12-22-23. Reports incision healing well. Patient c/o: redness. Fuel Cell Binder Required: No Accompanied by: Daughter Allergies No Known Allergies [No Known Allergies*] Allergy (Verified 01/02/24 13:00) HPI HPI Comments History of Present Illness Details Patient presents with his sister. He has tolerating a diet. He is having regular bowel habits. He is increasing his activity level. Pathology was reviewed. 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 [facility] Medical History HTN (hypertension) Adenocarcinoma of transverse colon Surgical History History of colectomy (12/22/23) S/P IVC filter History of partial colectomy Social History Household Members: Family Housing: House Do you presently have visiting nurse or other home services: No Patient Tobacco Use Status: Never used Tobacco service: No Physical Exam Vital Signs: Last Vital Signs Pulse 101 H 01/02/24 12:58 BP 156/78 H 01/02/24 12:58 GI Other: Central part of the incision has some mild erythema above and below as good 1st intention healing. This was opened and seroma was drained. Culture was obtained. No gross purulence or abscess demonstrated. Dressing applied. Well tolerated. Assessment & Plan Assessment & Plan (1) Status post colon resection: Code(s): Z90.49 - Acquired absence of other specified parts of digestive tract Plan Patient will be given antibiotics, local wound care, and will see me in approximately 1 week's time or p.r.n.. All questions answered. Coding Level of Care Code Global (44058) Diagnoses Status post colon resection Z90.49
== END 2024-01-02 13:21 | disposition home or self-care (01) ==
PROVIDERS: Visit Provider Surgery
DX: Z90.49 Acquired absence of other specified parts of digestive tract (principal)
CPT/HCPCS: 99024

== ENCOUNTER → 2024-01-03 14:20 | Outpatient (BNV) | payer MEDICAID, MEDICARE, SELFPAY | PROVIDERS: PCP Internal Medicine; Visit Provider Internal Medicine Medical Oncology | DX: C18.4 Malignant neoplasm of transverse colon (principal) | CPT/HCPCS: 99212; 99213; 99214 ==

== ENCOUNTER 2024-01-10 09:09 | Outpatient (AMB) | payer MEDICARE, MEDICAID, SELFPAY ==
[2024-01-10 09:22] VITALS: BP 157/79; PULSE 124
--- NOTE | 2024-01-10 09:22 | A.OFFVIS_ITS ---
Intake Vital Signs 01/10/24 09:22 Weight 173 lb BP 157/79 H Blood Pressure Location Rt brachial Position Sitting Pulse 124 H Intake Visit Reasons: S/p exp lap, colectomy Intake Note: Patient here 2wk s/p exp lap colectomy. Patient c/o: mild yellowish discharge on bandage. Redness has improved. Still on cephalexin. SX: 12-22-23. Underwriting Sales Representative Required: No Accompanied by: sister Daija Allergies No Known Allergies [No Known Allergies*] Allergy (Verified 01/10/24 09:23) HPI HPI Comments History of Present Illness Details Patient presents with his sister/linen supervisor. She has been doing his local wound care at his incision site. The meantime he is doing well regarding diet and having regular bowel habits. PFSH Medical History Wound check, abscess HTN (hypertension) Adenocarcinoma of transverse colon Surgical History History of colectomy (12/22/23) S/P IVC filter History of partial colectomy Social History Household Members: Family Housing: House Do you presently have visiting nurse or other home services: No Patient Tobacco Use Status: Never used Tobacco service: No Physical Exam Vital Signs: Last Vital Signs Pulse 124 H 01/10/24 09:22 BP 157/79 H 01/10/24 09:22 GI Other: Abdomen is soft. Incision clean dry and intact above and below the central part which is almost completely granulated in. Assessment & Plan Assessment & Plan (1) Status post colon resection: Code(s): Z90.49 - Acquired absence of other specified parts of digestive tract (2) Admission for fitting of Port-A-Cath: Code(s): Z45.2 - Encounter for adjustment and management of vascular access device Plan Patient is doing well. He was seen by Oncology and will require chemotherapy. Arrangements will be made per their request for a Port-A-Cath. Risks, benefits, alternatives Port-A-Cath placement reviewed the patient and his sister was also present and included but not limited to bleeding, infection, pneumothorax, numbness, pain, scarring the patient was to proceed. All questions answered. Arrangements will be made for this. Coding Level of Care Code Est Pt Level 5 (49147) Global (65944) Diagnoses Status post colon resection Z90.49 Admission for fitting of Port-A-Cath Z45.2
== END 2024-01-10 09:42 | disposition home or self-care (01) ==
PROVIDERS: Visit Provider Surgery
DX: Z90.49 Acquired absence of other specified parts of digestive tract (principal); Z45.2 Encounter for adjustment and management of vascular access device
CPT/HCPCS: 99024

== ENCOUNTER → 2024-01-10 09:09 | Outpatient (BNVA) | payer MEDICAID, SELFPAY | PROVIDERS: Visit Provider Surgery | DX: Z90.49 Acquired absence of other specified parts of digestive tract (principal); Z45.2 Encounter for adjustment and management of vascular access device | CPT/HCPCS: 99212 ==

== ENCOUNTER 2024-01-27 10:38 | Day surgery (SDC) | payer MEDICAID, SELFPAY ==
--- NOTE | 2024-01-25 14:01 | P.CONAN_ITS ---
Documented by User: Ekaterina Torres NP 01/25/24 14:16 HPI - Anesthesia Eval Consult details Narrative: 73yo M for Port-a-Cath Placement, Fluoroscopy Doppler U/S s/p ex lap 12/22/23 with GA-ETT 7.5/rectus sheath [place] [facility] [place] early 11/2023 shows large obstructing adenocarcinoma) hospital course: Patient was admitted for symptomatic acute on chronic blood loss anemia due to invasive adenocarcinoma of the transverse colon. Received a total of 2 units PRBCs and hemoglobin was stable. Patient underwent exploratory laparotomy, extensive enterolysis, takedown splenic flexure, transverse colectomy with primary colocolo anastomosis on 12/22/2023. Postop period was unremarkable. [facility] Active Problems Active Problems: All Active Problems (Updated 01/19/24 @ 05:32 by Queenie Montoya) Admission for fitting of Port-A-Cath (Acute) Status post colon resection (Acute) Recurrent carcinoma of colon (Acute) Colon cancer (Acute) GERD (gastroesophageal reflux disease) (Acute) Severe anemia (Acute) GI (gastrointestinal bleed) (Acute) Adenocarcinoma (Acute) Past Medical History Medical History Wound check, abscess HTN (hypertension) Adenocarcinoma of transverse colon Family History Family history of problems with anesthesia: No Surgical History Surgical History History of colectomy (12/22/23) S/P IVC filter History of partial colectomy History of Problems with Anesthesia: No Social History Social History Household Members: Family Housing: House Do you presently have visiting nurse or other home services: No Patient Tobacco Use Status: Never used Tobacco service: No Meds Allergies Allergy/AdvReac Type Severity Reaction Status Date / Time No Known Allergies Allergy Verified 01/24/24 15:50 [No Known Allergies*] Home Medications ?Medication ?Instructions ?Recorded ?Confirmed ?Last Taken ?Type omeprazole 20 mg tablet,delayed 20 mg PO DAILY PRN gi upset 12/16/23 01/24/24 Unknown History release Exam Pertinent Lab Results Pertinent Lab Results: Laboratory Tests 01/24/24 15:46 WBC 7.8 Hgb 12.4 L Hct 39.7 L Plt Count 228 D Sodium 143 Potassium 4.3 Chloride 106 Carbon Dioxide 29 BUN 17 H Creatinine 0.91 Assessment and Plan Assessment Anesthesia Assessment: Chart Reviewed Final Anesthetic Review Family History of Problems with Anesthesia: No History of Problems with Anesthesia: No Documented by User: Nellie Garces MD 01/27/24 15:11 PMF[facility] Active Problems Active Problems: All Active Problems (Updated 01/27/24 @ 12:19 by Nellie Garces MD) Admission for fitting of Port-A-Cath (Acute) Status post colon resection (Acute) Recurrent carcinoma of colon (Acute) Colon cancer (Acute) GERD (gastroesophageal reflux disease) (Acute) Severe anemia (Acute) GI (gastrointestinal bleed) (Acute) Adenocarcinoma (Acute) Past Medical History Medical History Wound check, abscess HTN (hypertension) Adenocarcinoma of transverse colon Family History Family history of problems with anesthesia: No Surgical History Surgical History History of colectomy (12/22/23) S/P IVC filter History of partial colectomy History of Problems with Anesthesia: No Social History Social History Household Members: Family Housing: House Do you presently have visiting nurse or other home services: No Patient Tobacco Use Status: Never used Tobacco service: No Meds Allergies Allergy/AdvReac Type Severity Reaction Status Date / Time No Known Allergies Allergy Verified 01/24/24 15:50 [No Known Allergies*] Home Medications ?Medication ?Instructions ?Recorded ?Confirmed ?Last Taken ?Type omeprazole 20 mg tablet,delayed 20 mg PO DAILY PRN gi upset 12/16/23 01/24/24 Unknown History release Exam Height,Weight and Vital Signs: Height 5 ft 6 in Weight 79.095 kg Vital Signs Temp Pulse Resp BP Pulse Ox O2 Del Method 96.8 F 100 16 126/80 99 Room Air 01/27/24 11:22 01/27/24 11:22 01/27/24 11:22 01/27/24 11:22 01/27/24 11:22 01/27/24 11:22 Airway Mallampati Class: II TM Dist: >3cm Neck ROM: Full Loose/Missing/Broken Teeth: Yes (Many missing. Denies broken or loose teeth) Heart: RRR Lungs: CTAB Assessment and Plan Assessment Anesthesia Assessment: Anesthesia Plan Discussed Final Anesthetic Review Family History of Problems with Anesthesia: No History of Problems with Anesthesia: No NPO: Yes ASA Class: III Final Preanesthetic Review: No Changes in Pt Med Stat, Meds/Allgs Chart Reviewed, Consent Obtained/Reviewed and Anes Risks/Benef Reviewed Patient Risk: Intermediate Procedure Risk: Low Assessment/Block/Sedation in SS: Assess/Block/Sedation-SS Anesthetic Plan Anesthetic Plan: MAC: Disposition: Standard PACU
--- NOTE | 2024-01-26 14:47 | MHC.SHP ---
Pre-Procedural Eval Section A - 24 Hr Update-Section A only Date of Service: 01/26/24 The patient is an INPATIENT: No Changes since office visit: No Cold of Flu in the past 2 weeks, No New Medical Problems, No Changes in Medication and No Patient answered all questions Section B - Complete if H&P > 30 days Chief Complaint: Encounter for adjustment and management of vascula Allergies: Allergies Allergy/AdvReac Type Severity Reaction Status Date / Time No Known Allergies Allergy Verified 01/24/24 15:50 [No Known Allergies*] Plan I have reviewed the history and physical and performed a pertinent physical examination on my patient. No changes have occurred unless specified. Time Spent With Patient Time: Total time managing care of this patient today ____ minutes.
--- NOTE | ~2024-01-27 | XR_ITS ---
EXAMINATION: XR CHEST CLINICAL INFORMATION: Port placement COMPARISON: Previous chest x-ray from 2007 TECHNIQUE: Frontal view of the chest was obtained. FINDINGS: New right chest port with tip projecting over the SVC. The cardiac and mediastinal contours are normal. The lungs are clear. No pleural effusion or pneumothorax. Degenerative changes of the spine. XR/XR chest 1V IMPRESSION: New right chest port with tip projecting over the SVC. No pneumothorax.
--- NOTE | ~2024-01-27 | FL_ITS ---
EXAMINATION: XR FLUOROSCOPY WITH IMAGES CLINICAL INFORMATION: Port-A-Cath placement. COMPARISON: None available. TECHNIQUE: Fluoroscopy Supervised By: Dr. Borden. Fluoroscopy Time: 142.3 seconds. Cumulative Dose: 21.92 mGy. Images: 3. FINDINGS: The submitted images include fluoroscopic images performed during placement of a right subclavian Port-A-Cath. The catheter tip is positioned at the cavoatrial junction. No gross pneumothorax is seen. FL/FL guidance in OR IMPRESSION: Intraoperative fluoroscopic guidance is provided during Port-A-Cath placement. Please see the patient's Operative Report for full procedural details.
--- NOTE | 2024-01-27 07:38 | MHC.SHP ---
Pre-Procedural Eval Section A - 24 Hr Update-Section A only Date of Service: 01/27/24 The patient is an INPATIENT: No Changes since office visit: No Cold of Flu in the past 2 weeks, No New Medical Problems, No Changes in Medication and No Patient answered all questions The patient has been examined within 24 hours of the surgical procedure. The History & Physical has been completed within 30 days and I have reviewed it.: Yes Section B - Complete if H&P > 30 days Chief Complaint: Encounter for adjustment and management of vascula Allergies: Allergies Allergy/AdvReac Type Severity Reaction Status Date / Time No Known Allergies Allergy Verified 01/24/24 15:50 [No Known Allergies*] Plan I have reviewed the history and physical and performed a pertinent physical examination on my patient. No changes have occurred unless specified. Time Spent With Patient Time: Total time managing care of this patient today ____ minutes.
[2024-01-27 11:18] VITALS: BMI 28.1
[2024-01-27 11:22] VITALS: BP 126/80; PULSE 100; RESP 16; TEMP 36; O2SAT 99
[2024-01-27] MEDS: Lactated Ringers 1,000 ML 100 ML IVCONT (11:41)
[2024-01-27 14:24] VITALS: BP 116/79; PULSE 90; RESP 16; TEMP 36.6; O2SAT 98
--- NOTE | 2024-01-27 14:29 | W.PM.OPN ---
Operative Note Operative Note Date of Service: 01/27/24 Narrative: Preoperative diagnosis: [] Recurrent colon cancer Postop diagnosis: [] The same Procedure [] right subclavian vein Port-A-Cath placement with Doppler ultrasound guidance and fluoroscopy Surgeon: [] Michi Carburetor Rebuilder: [] Type of Anesthesia: [] MAC Indication for surgery: [] Chemotherapy Findings: [] Patient brought to the operating room, placed on operative table in supine position, after an adequate level of MAC anesthesia was induced, the right neck and chest were prepped and draped in usual sterile fashion, and the patient placed in Trendelenburg position. Cannulation sites and pocket were infiltrated with 0.5% Marcaine/1% lidocaine mixture. Using Doppler ultrasound guidance, the right internal jugular vein was identified and cannulated using Seldinger technique. Wire was unable to be advanced into the superior vena cava after several attempts. Patient next had his right arm pulled inferiorly in the right subclavian vein was uneventfully cannulated and a wire advanced into the superior vena cava without incident. Pocket was fashioned at the cannulation site using Bovie. Port was secured to the pocket using Vicryl sutures. Dilating sheath was placed over the wire under fluoroscopic guidance and a wire retrieved. Pre hep flushed Port-A-Cath catheter was then advanced over the dilating sheath under fluoroscopic guidance into the proximal superior vena cava. Peel-away sheath was removed without incident. Antegrade and retrograde flow were easily established several times. Wound was irrigated, secured hemostasis, and closed in the following manner; interrupted inverted dermal 3-0 Vicryl sutures followed by Steri-Strips and sterile dressings were applied. Sponge, needle, and instrument counts reported correct. Patient tolerated the procedure well and emerged from anesthesia stable condition. EBL minimal. Postprocedure chest x-ray pending.
[2024-01-27 14:35] VITALS: BP 117/82; PULSE 100; RESP 16; O2SAT 98
[2024-01-27 14:50] VITALS: BP 125/85; PULSE 97; RESP 16; TEMP 36.2; O2SAT 97
== END 2024-01-27 15:09 | disposition home or self-care (01) ==
PROVIDERS: PCP Internal Medicine; Visit Provider Surgery
PROC: (CPT 36561; principal; 2024-01-27 13:30)
DX: Z45.2 Encounter for adjustment and management of vascular access device (principal); C18.9 Malignant neoplasm of colon, unspecified; Z90.49 Acquired absence of other specified parts of digestive tract
CPT/HCPCS: 36561; 71045; C1788; J0690; J1644; J2250; J2704; J2795

== ENCOUNTER → 2024-01-27 10:38 | Outpatient (BNV) | payer MEDICAID, SELFPAY | PROVIDERS: PCP Internal Medicine; Visit Provider Surgery | DX: C18.9 Malignant neoplasm of colon, unspecified (principal) | CPT/HCPCS: 36561; 76937; 77001 ==

== ENCOUNTER 2024-02-08 09:49 | Outpatient (REF) | payer MEDICAID, SELFPAY ==
--- NOTE | ~2024-02-08 | US_ITS ---
EXAMINATION: US VENOUS WITH DOPPLER UPPER EXTREMITY, RIGHT CLINICAL INFORMATION: Previous PET scan at another facility with question clot. Prior exam not available. Prior report not available. COMPARISON: None available. TECHNIQUE: Ultrasound of the upper extremity is performed using compression sonography and color and pulse Doppler flow with assessment of augmentation of flow. There is also imaging and Doppler assessment of the jugular and subclavian veins. Spectral analysis with color-flow imaging is performed. Radiologist was not in attendance. Images were later provided for interpretation. FINDINGS: Possible partial thrombus present in the proximal right brachial vein. Venous catheter partially visualized in the right subclavian vein. Respiratory variation, normal compression, and augmented flow are noted throughout the upper extremity including the axillary, cubital, and radial and ulnar veins. There is normal flow in the internal jugular and subclavian veins. There is no visible deep or superficial thrombophlebitis. If the patient's symptoms progress, a followup ultrasound in 5 -7 days might be of value to exclude proximal propagation from a nonvisualized distal arm vein. US/US venous duplex UE RT IMPRESSION: Possible partial thrombus present in the proximal right brachial vein. Venous catheter partially visualized in the right subclavian vein. This study was presented today February 08, 2024 for interpretation. Stat results provided at this time as requested by referring provider.
== END 2024-02-08 09:50 | disposition home or self-care (01) ==
LOC: HO.HMGCX 09:49
PROVIDERS: PCP Internal Medicine; Visit Provider Internal Medicine Medical Oncology
DX: I80.9 Phlebitis and thrombophlebitis of unspecified site (principal); C18.9 Malignant neoplasm of colon, unspecified
CPT/HCPCS: 93971

== ENCOUNTER 2024-06-29 14:56 | Outpatient (AMB) | payer MEDICARE, MEDICAID, SELFPAY ==
[2024-06-29 14:58] VITALS: BP 136/68; PULSE 105; O2SAT 97; BMI 31.0
--- NOTE | 2024-06-29 14:58 | A.OFFPC_ITS ---
Vital Signs 06/29/24 14:58 Height 5 ft 6 in Weight 192 lb BMI 31.0 BP 136/68 Blood Pressure Location Lt brachial Position Sitting Pulse 105 H Pulse Source Pulse Oximeter Pulse Oximetry (%) 97 Oxygen Delivery Method Room Air Intake Visit Reasons: annual exam/ establish care Intake Note: Trust Administrator Required: No Accompanied by: Sister Allergies No Known Allergies [No Known Allergies*] Allergy (Verified 06/29/24 15:26) Medication List - Last Reconciled 06/29/24 by Harini Mills PA-C apixaban (Eliquis) 5 mg PO BID apixaban (Eliquis DVT-PE Treat 30D Start) 5 mg PO BID dexamethasone 4 mg PO BID docusate sodium (Colace) 100 mg PO DAILY omeprazole 20 mg PO DAILY ondansetron 8 mg PO Q8H sennosides (Senokot) 8.6 mg PO BID Tobacco use date assessed: 06/29/24 Fall risk assessment: No Falls in past year Last assessed Fall Risk: 06/29/24 Dental Screening Dental Screen Date: 06/29/24 Did you have a dental visit in the last 12 months?: Yes Did you have a dental problem in the last 6 months where you did not have access to dental care?: No Was dental information given to patient?: Patient has dentist HPI annual exam/ establish care HPI Details 73-year-old male with past medical histo ry of adenocarcinoma, GERD, carcinoma of the colon, and history of right upper extremity DVT coming into the office for the 1st time.? In review of the notes, patient was seen in [facility] 12/16/2023 for dizziness and pallor.? Earlier in November he underwent a colonoscopy and was found to have a large obstructing mass and biopsy was consistent with invasive adenocarcinoma.? Patient was admitted for symptomatic acute on chronic blood loss.? Patient was seen by General surgery and Oncology with plans for exploratory laparotomy and resection 12/22/2023 with chemotherapy to follow afterwards.? Patient has been undergoing adjuvant chemotherapy with FOLFOX x6 cycles.? Plan is to treat with a total of 8 cycles and undergo a CT scan.? Patient was also found to have a right upper extremity DVT 02/08/2024 and started on Eliquis with a follow up ultrasound in 3 months. He follows with Dr. Lucia for annual eye exams. Patient presents today with his sister who is translating for the duration of the appointment. She mentions today he has an upcoming appointment to flush his port and check in with Dr. Persaud. He does have concern of constipation and is on a bowel regimen including Colace and senna without good relief and has tried MiraLax in the past. He has a bowel movement typically every 2 days and the stool is very hard and he often strains. [facility] Medical History Wound check, abscess HTN (hypertension) Adenocarcinoma of transverse colon Surgical History History of colectomy (12/22/23) S/P IVC filter History of partial colectomy Family History (Updated 06/29/24 @ 15:29 by Harini Mills PA-C) Mother CVA (cerebral vascular accident) Brother Heart disease Social History Household Members: Family Housing: House Do you presently have visiting nurse or other home services: No Patient Tobacco Use Status: Never used Tobacco service: No Cognitive needs: No Hearing needs: No Vision needs: No Questionnaire PHQ-9 Over the last 2 weeks, how often have you been bothered by any of the following problems? 2. Feeling down, depressed, or hopeless: several days 3. Trouble falling or staying asleep, or sleeping too much: several days 4. Feeling tired or having little energy: several days 5. Poor appetite or overeating: not at all 6. Feeling bad about yourself - or that you are a failure or have let yourself or your family down: not at all 8. Moving or speaking so slowly that other people could have noticed. Or the opposite - being so fidgety or restless that you have been moving around a lot more than usual: not at all 9. Thoughts that you would be better off or of hurting yourself in some way: not at all Depression Screening Interpretation: Positive (Offered medical management or Counseling Services) Depression Screening Follow-up: Declines treatment Depression Screening Done: Yes 45367 - PHQ-9 Billing: Yes Source: Developed by Drs. Kevin Villaseñor, Yemi Arauz and colleagues, with an educational grace from [employer]. Thrive Questionnaire Date Thrive assessed: 12/18/23 I am a: Patient What is your living situation today?: I have a steady place to live Within the past 12 months, did the food you bought not last and you didn't have the money to get more?: I choose not to answer this question Within the past 12 months, did you worry whether your food would run out before you got money to buy more?: Sometimes True Do you have trouble paying for medicines?: I choose not to answer this question Do you have trouble getting transportation to medical appointments?: No Do you have trouble paying your heating and electricity bill?: No Do you have trouble taking care of your child, family member or friend?: No Do you have trouble with day-to-day activities such as bathing, preparing meals, shopping, managing finances, etc.?: I choose not to answer this question Are you currently unemployed and looking for a job?: I choose not to answer this question Are you interested in more education?: I choose not to answer this question Please select the resources that you would like help with: Paying for medicine Currently or been in a relationship where the following occur: I choose not to answer THRIVE Score: 1 AUDIT C Alcohol Use Questionnaire (AUDIT-C) 1. How often do you have a drink containing alcohol?: Never 3. How often do you have six or more drinks on one occasion?: Never Total Score: 0 COURTNEY-7 AMB Questionnaire COURTNEY-7 Date COURTNEY - 7 assessed: 06/29/24 Feeling nervous, anxious, or on edge: 1 = Several days Not being able to stop or control worryin = Several days Worrying too much about different things: 1 = Several days Trouble relaxin = Not at all Being so restless that it is hard to sit still: 0 = Not at all Becoming easily annoyed or irritable: 1 = Several days Feeling afraid as if something awful might happen: 0 = Not at all Total COURTNEY-7 score (0-4 normal; 5-9 mild; 10-14 moderate; 15-21 severe): 4 Source: Developed by Drs. Kevin Villaseñor, Yemi Arauz and colleagues, with an educational grace from [employer]. COURTNEY-7 Assessment Billing COURTNEY-7 Assessment Tool: COURTNEY-7 Assessment 86185 Review of Systems Const Denies body aches, Denies fatigue, Denies fever(s), Denies frequent falls, Denies headache(s) and Denies weakness Eyes Reports no additional complaints and Denies change in vision ENT Denies dysphagia, Denies dizziness, Denies facial pain, Denies headache(s), Denies nasal congestion and Denies odynophagia Card Denies chest pain, Denies syncope, Denies irregular heart rhythm, Denies leg edema, Denies lightheadedness and Denies dyspnea Resp Denies cough and Denies dyspnea GI Reports constipation, Denies dysphagia, Denies dyspepsia, Denies diarrhea, Denies nausea, Denies odynophagia and Denies vomiting Denies dysuria, Denies urinary frequency, Denies urinary hesitancy and Denies urinary urgency Musc Denies back pain and Denies myalgias Skin/Breast Reports system reviewed and no additional complaints, except as documented Neuro Denies dizziness, Denies syncope, Denies frequent falls, Denies headache(s) and Denies weakness Psych Reports no additional complaints Endo Denies fatigue Physical exam (Primary Care) Vital Signs: Last Vital Signs Pulse 105 H 06/29/24 14:58 BP 136/68 06/29/24 14:58 Pulse Ox 97 06/29/24 14:58 Oxygen Delivery Method Room Air 06/29/24 14:58 BMI result Body Mass Index 31.0 Tobacco/Smoking Status: Tobacco use Status Tobacco use date assessed 06/29/24 06/29/24 15:00 Patient Tobacco Use Status Never used Tobacco 06/29/24 15:00 Depression Screening Interpretation: Positive (Offered medical management or Counseling Services) Depression Screening Follow-up: Declines treatment Thrive Assessment: Date of Thrive Assessment Date Thrive assessed 12/18/23 06/29/24 15:00 Currently or been in a relationship where the following occur: I choose not to answer Const General: cooperative, healthy appearing, comfortable and no acute distress Orientation/consciousness: patient oriented x3 HENMT Head: Yes normocephalic Ears: hearing grossly normal bilaterally, external ears normal, TM's normal bilaterally and EAC's normal General nose exam: Normal external nose present Face and sinus: Yes normal facial exam and Yes sinuses nontender Mouth: Normal oral and palatal mucosa present and tongue normal Throat: Yes posterior oropharynx normal Eyes General: appearance normal, both eyes and all related structures Conjunctivae: conjunctivae normal Pupils: Equal, round and reactive pupils present EOM: EOMs intact bilaterally and No Nystagmus present Neck Neck: Yes normal visual inspection, Yes full ROM and Yes no lymphadenopathy Chest Chest palpation & inspection: normal inspection of the chest Resp Effort & Inspection: normal respiratory effort Auscultation: clear to auscultation bilaterally, no crackles, no rales, no rhonchi, no wheezes and breath sounds present Cardio Rate: tachycardic Rhythm: regular rhythm Peripheral pulses: radial pulses present and dorsalis pedis present GI Inspection: Yes normal to inspection and No Abdominal wall edema Palpation (GI): Soft to palpation, not firm and nontender Auscultation: normal bowel sounds Rectal Exam - Male: Yes deferred General: Yes no CVA tenderness Back/Spine/Pelvis Back: no CVA tenderness Skin General skin exam: no rashes or lesions noted Neuro General: patient oriented x3 Cranial nerves: Yes Equal, round and reactive pupils present, Yes Midline tongue present, Yes Ability to bilaterally elevate shoulders present and No Nystagmus present Gait exam (Neuro): Normal gait present Extrem General: Yes normal to inspection, Yes full ROM, No no pedal edema and No edema Psych Speech and movement: Normal speech and movement present Affect: normal affect Insight: Good insight present (Psych) Judgement: Good judgement present (Psych) Assessment and Plan Assessment & Plan (1) Recurrent carcinoma of colon: Comment: Patient has been undergoing adjuvant chemotherapy with FOLFOX x6 cycles. Plan is to treat with a total of 8 cycles [address] a CT scan. Code(s): C18.9 - Malignant neoplasm of colon, unspecified Plan: Continue to follow with Oncology. (2) Deep vein thrombosis of right upper extremity: Code(s): I82.621 - Acute embolism and thrombosis of deep veins of right upper extremity Plan: Presently on apixaban. Continue to follow with Hematology/Oncology. (3) Annual physical exam: Code(s): Z00.00 - Encounter for general adult medical examination without abnormal fin dings Plan: Patient is up-to-date on all recommended routine screenings for his age. Reviewed vaccinations status and unclear if he is up-to-date on his shingles, pneumonia, or tetanus. They will look into the records and let us know at the next appointment. He is sure he has never had the shingles vaccine and recommended going to pharmacy for this vaccine. We will follow up in 6 months after blood work is completed or sooner if new problems arise. (4) Constipation: Code(s): K59.00 - Constipation, unspecified Plan: Patient is concerned because he does have very hard stools and strains when he has a bowel movement. He is currently on senna and Colace for his bowel regimen and is looking for another medication to add. Recommended adding fiber and/or prune juice to his diet to help with constipation. Also send over a pr escription for fiber capsules, but may use any [id number] fiber supplement. Plan This note was constructed using voice recognition software. While every effort has been made to ensure accuracy and ems director, still areas may have been included sometimes these areas may affect the content or meeting of the given symptoms. Total time spent caring for the patient today was 30 minutes. This includes time spent before the visit reviewing the chart, time spent during the visit, and time spent after the visit and documentation. Orders: Orders Lipid Panel Today Z00.00 - Encounter for general adult medical examination without abnormal findings TSH reflex Free T4 Today Z00.00 - Encounter for general adult medical examination without abnormal findings Hemoglobin A1c Today Z00.00 - Encounter for general adult medical examination without abnormal findings Prostate Specific Antigen Scr Today Z00.00 - Encounter for general adult medical examination without abnormal findings Free T4 (Free Thyroxine) Today Z00.00 - Encounter for general adult medical examination without abnormal findings Vitamin B12 and Folate Today Z00.00 - Encounter for general adult medical examination without abnormal findings Vitamin D 25-OH (D2 and D3) Today Z00.00 - Encounter for general adult medical examination without abnormal findings Medications: New psyllium husk (Metamucil) 0.4 grams PO BEDTIME PRN 30 caps 0RF constipation Coding Level of Care Code New Pt Prev Care >65yr (67093) Diagnoses Recurrent carcinoma of colon C18.9 Deep vein thrombosis of right upper extremity I82.621 Annual physical exam Z00.00 Constipation K59.00 Additional Codes COURTNEY-7 Assessment Billing - COURTNEY-7 Assessment Tool: COURTNEY-7 Assessment 24108 ([id number])
== END 2024-06-29 15:48 | disposition home or self-care (01) ==
PROVIDERS: PCP Internal Medicine
DX: Z00.00 Encounter for general adult medical examination without abnormal findings (principal); C18.9 Malignant neoplasm of colon, unspecified; I82.621 Acute embolism and thrombosis of deep veins of right upper extremity; K59.00 Constipation, unspecified
CPT/HCPCS: 99387

== ENCOUNTER 2024-07-02 07:50 | Outpatient (REF) | payer MEDICARE, MEDICAID, SELFPAY ==
[2024-07-02 09:00] LABS: Estimated Average Glucose 114 mg/dL; Hemoglobin A1c % 5.6 % (<6.0)
[2024-07-02 09:16] LABS: Cholesterol 232 mg/dL (<200); HDL Cholesterol 44 mg/dL (>40); LDL Cholesterol Calculated 156 mg/dL (<100); Triglycerides 163 mg/dL (<150)
[2024-07-02 09:33] LABS: Free T4 (Free Thyroxine) 0.89 ng/dL (0.71-1.85); TSH reflex Free T4 2.09 uIU/mL (0.32-4.0)
[2024-07-02 09:44] LABS: Folate 12.6 ng/mL (> or = 4.0); Prostate Specific Antigen Scr 0.93 ng/mL (<0.05-4.0); Vitamin B12 855 pg/mL (200-900)
[2024-07-06 14:43] LABS: Vitamin D 25-OH, D2 <4 ng/mL; Vitamin D 25-OH, D3 36 ng/mL; Vitamin D 25-OH, Total 36 ng/mL (30-100)
== END 2024-07-02 07:51 | disposition home or self-care (01) ==
LOC: HO.LAB 07:50
PROVIDERS: PCP Internal Medicine
DX: Z00.00 Encounter for general adult medical examination without abnormal findings (principal); Z12.5 Encounter for screening for malignant neoplasm of prostate; Z13.1 Encounter for screening for diabetes mellitus
CPT/HCPCS: 36415; 80061; 82306; 82607; 82746; 83036; 84153; 84439; 84443

== ENCOUNTER 2024-08-31 08:52 | Outpatient (AMB) | payer MEDICARE, MEDICAID, SELFPAY ==
[2024-08-31 08:54] VITALS: BP 122/70; PULSE 81; O2SAT 98; BMI 31.3
--- NOTE | 2024-08-31 08:54 | A.OFFPC_ITS ---
Vital Signs 08/31/24 08:54 Height 5 ft 6 in Weight 194 lb BMI 31.3 BP 122/70 Blood Pressure Location Lt brachial Position Sitting Pulse 81 Pulse Source Pulse Oximeter Pulse Oximetry (%) 98 Oxygen Delivery Method Room Air Intake Visit Reasons: f/u Cholesterol Allergies No Known Allergies [No Known Allergies*] Allergy (Verified 08/31/24 08:55) Medication List - Last Reconciled 08/31/24 by Harini Mills PA-C apixaban (Eliquis) 5 mg PO BID apixaban (Eliquis DVT-PE Treat 30D Start) 5 mg PO BID docusate sodium (Colace) 100 mg PO DAILY metoprolol succinate ER 50 mg PO DAILY omeprazole 20 mg PO DAILY ondansetron 8 mg PO Q8H psyllium husk (Metamucil) 0.4 grams PO BEDTIME PRN sennosides (Senokot) 8.6 mg PO BID Tobacco use date assessed: 06/29/24 Fall risk assessment: No Falls in past year Last assessed Fall Risk: 08/31/24 Dental Screening Dental Screen Date: 06/29/24 HPI f/u Cholesterol HPI Details 73-year-old male past medical history of adenocarcinoma, GERD, carcinoma of the colon and history of right upper extremity DVT coming to the office for follow up on cholesterol levels.? In review of the notes, patient was seen by [facility] hematology/oncology 08/15/[address] to [address] with CT scan of chest abdomen and pelvis for restaging, colonoscopy October 2024, on Eliquis for upper extremity DVT and advised follow up in 3 months. Patient presents today with his sister who is the clinical appeals reviewer for the duration of this appointment. Patient has no acute concerns today and is here to review his cholesterol labs. Patient states he eats lots of pastries as well as fried foods. He does walk every day and is very active. [facility] Medical History Wound check, abscess HTN (hypertension) Adenocarcinoma of transverse colon Surgical History History of colectomy (12/22/23) S/P IVC filter History of partial colectomy Family History Mother CVA (cerebral vascular accident) Brother Heart disease Social History Household Members: Family Housing: House Do you presently have visiting nurse or other home services: No Patient Tobacco Use Status: Never used Tobacco service: No Cognitive needs: No Hearing needs: No Vision needs: No Questionnaire Thrive Questionnaire Date Thrive assessed: 06/29/24 I am a: Patient What is your living situation today?: I have a steady place to live Within the past 12 months, did the food you bought not last and you didn't have the money to get more?: I choose not to answer this question Within the past 12 months, did you worry whether your food would run out before you got money to buy more?: Sometimes True Do you have trouble paying for medicines?: I choose not to answer this question Do you have trouble getting transportation to medical appointments?: No Do you have trouble paying your heating and electricity bill?: No Do you have trouble taking care of your child, family member or friend?: No Do you have trouble with day-to-day activities such as bathing, preparing meals, shopping, managing finances, etc.?: I choose not to answer this question Are you currently unemployed and looking for a job?: I choose not to answer this question Are you interested in more education?: I choose not to answer this question Please select the resources that you would like help with: Paying for medicine Currently or been in a relationship where the following occur: I choose not to answer THRIVE Score: 1 AUDIT C Alcohol Use Questionnaire (AUDIT-C) 1. How often do you have a drink containing alcohol?: Never 3. How often do you have six or more drinks on one occasion?: Never Total Score: 0 COURTNEY-7 AMB Questionnaire COURTNEY-7 Date COURTNEY - 7 assessed: 06/29/24 Source: Developed by Drs. Kevin Villaseñor, Gloria Collazo, Yemi Walsh and colleagues, with an educational grace from [employer]. Review of Systems Const Denies body aches, Denies chills and Denies fever(s) Eyes Reports no additional complaints ENT Reports no additional complaints Card Denies chest pain, Denies syncope, Denies irregular heart rhythm, Denies leg edema, Denies lightheadedness and Denies dyspnea Resp Denies dyspnea GI Reports no additional complaints Reports no additional complaints Musc Reports no additional complaints Neuro Denies syncope Physical exam (Primary Care) Vital Signs: Last Vital Signs Pulse 81 08/31/24 08:54 BP 122/70 08/31/24 08:54 Pulse Ox 98 08/31/24 08:54 Oxygen Delivery Method Room Air 08/31/24 08:54 BMI result Body Mass Index 31.3 Tobacco/Smoking Status: Tobacco use Status Tobacco use date assessed 06/29/24 08/31/24 08:55 Patient Tobacco Use Status Never used Tobacco 08/31/24 08:55 Thrive Assessment: Date of Thrive Assessment Date Thrive assessed 06/29/24 08/31/24 08:55 Currently or been in a relationship where the following occur: I choose not to answer Const General: cooperative, healthy appearing, comfortable and no acute distress Orientation/consciousness: patient oriented x3 HENMT Head: Yes normocephalic Ears: hearing grossly normal bilaterally General nose exam: Normal external nose present Eyes General: appearance normal, both eyes and all related structures Conjunctivae: conjunctivae normal Neck Neck: Yes full ROM and Yes no lymphadenopathy Resp Effort & Inspection: normal respiratory effort Auscultation: clear to auscultation bilaterally, no crackles, no rales, no rhonchi and no wheezes Cardio Rate: regular rate Rhythm: regular rhythm Skin General skin exam: no rashes or lesions noted Neuro General: patient oriented x3 Gait exam (Neuro): Normal gait present Extrem General: Yes normal to inspection, Yes full ROM and No edema Psych Affect: normal affect Attitude: cooperative Insight: Good insight present (Psych) Judgement: Good judgement present (Psych) Coding Level of Care Code Est Pt Level 3 (28774) Diagnoses Hypercholesterolemia E78.00 Deep vein thrombosis of right upper extremity I82.621 Gastroesophageal reflux disease without esophagitis K21.9 Esophagitis presence: without esophagitis Recurrent carcinoma of colon C18.9 Assessment & Plan Assessment & Plan (1) Hypercholesterolemia: Code(s): E78.00 - Pure hypercholesterolemia, unspecified Category: Medical Plan: Avoid foods that are high in cholesterol such as red meat, fried foods, eggs and baked goods. Triglyceride goal of less than 150 and LDL goal of less than 100. Discussed with patient his cholesterol levels are not at goal. Patient would like to try lifestyle modification with diet and exercise prior to medication. Patient has a appointment in September advised to have cholesterol labs drawn prior to this appointment and we will re-evaluate at that time. Discussed if cholesterol levels remain elevated a low-dose of medication may need to be started. (2) Deep vein thrombosis of right upper extremity: Code(s): I82.621 - Acute embolism and thrombosis of deep veins of right upper extremity Category: Medical Plan: Continue to follow with Hematology/Oncology and continue on apixaban. (3) GERD (gastroesophageal reflux disease): Code(s): K21.9 - Gastro-esophageal reflux disease without esophagitis Category: Medical Qualifiers: Esophagitis presence: without esophagitis Qualified Code(s): K21.9 - Gastro-esophageal reflux disease without esophagitis Plan: Avoid trigger foods such as citrus, tomato products, soda, caffeine, spicy foods and other foods that may be irritating to your stomach. Avoid laying flat 3-4 hours after eating and elevate the head of the bed 30 degrees to prevent acid from moving into the esophagus. Continue on omeprazole 20 mg (4) Recurrent carcinoma of colon: Comment: Patient has been undergoing adjuvant chemotherapy with FOLFOX x6 cycles. Plan is to treat with a total of 8 cycles [address] a CT scan. Code(s): C18.9 - Malignant neoplasm of colon, unspecified Category: Medical Plan: Continue to follow with Hematology/Oncology. Plan This note was constructed using voice recognition software. While every effort has been made to ensure accuracy and soaking pits supervisor, still areas may have been included sometimes these areas may affect the content or meeting of the given symptoms. Total time spent caring for the patient today was 20 minutes. This includes time spent before the visit reviewing the chart, time spent during the visit, and time spent after the visit and documentation. Orders: Orders Lipid Panel Today E78.00 - Pure hypercholesterolemia, unspecified Medications: New metoprolol succinate ER 50 mg PO DAILY 90 tabs 2RF Discontinued apixaban (Eliquis DVT-PE Treat 30D Start) Taken10 mg BID for 7 days, then 5 mg po BID. Discontinued Reason: Patient no longer taking 5 mg PO BID 74 ea 0RF
== END 2024-08-31 09:26 | disposition home or self-care (01) ==
PROVIDERS: PCP Internal Medicine
DX: E78.00 Pure hypercholesterolemia, unspecified (principal); I82.621 Acute embolism and thrombosis of deep veins of right upper extremity; K21.9 Gastro-esophageal reflux disease without esophagitis; C18.9 Malignant neoplasm of colon, unspecified

== ENCOUNTER → 2024-08-31 08:52 | Outpatient (BNVA) | payer MEDICARE, MEDICAID, SELFPAY | PROVIDERS: PCP Internal Medicine | DX: E78.00 Pure hypercholesterolemia, unspecified (principal); I82.621 Acute embolism and thrombosis of deep veins of right upper extremity; K21.9 Gastro-esophageal reflux disease without esophagitis; C18.9 Malignant neoplasm of colon, unspecified | CPT/HCPCS: 99212 ==

== ENCOUNTER 2024-09-07 07:13 | Outpatient (REF) | payer MEDICARE, MEDICAID, SELFPAY ==
[2024-09-07 08:30] LABS: Cholesterol 202 mg/dL (<200); HDL Cholesterol 46 mg/dL (>40); LDL Cholesterol Calculated 132 mg/dL (<100); Triglycerides 123 mg/dL (<150)
== END 2024-09-07 07:14 | disposition home or self-care (01) ==
LOC: HO.LAB 07:13
DX: E78.00 Pure hypercholesterolemia, unspecified (principal)
CPT/HCPCS: 36415; 80061

== ENCOUNTER 2024-09-10 08:40 | Outpatient (REF) | payer MEDICARE, MEDICAID, SELFPAY ==
--- NOTE | ~2024-09-10 | CT_ITS ---
EXAMINATION: CT CHEST, ABDOMEN AND PELVIS WITH CONTRAST CLINICAL INFORMATION: Recurrent colon carcinoma follow-up. COMPARISON: No pertinent prior studies are available for comparison. TECHNIQUE: Multidetector volumetric imaging was performed from the thoracic inlet through the pubic symphysis following administration of oral and intravenous contrast of 85 mL of Omnipaque 350. Sagittal and coronal reformatted images were obtained on the technologist workstation. DLP: 426 mGy-cm. FINDINGS: CHEST: Lungs: The central airways are patent. No significant bronchial wall thickening or bronchiectasis is appreciated. No confluent parenchymal disease is seen. There is some dependent ground-glass opacity seen bilaterally consistent with dependent atelectasis. No suspicious lung nodules are appreciated. Mediastinum: Visualized thyroid gland unremarkable. Heart normal size. No pericardial effusion. Coronary artery calcification is present. No thoracic aortic aneurysm or dissection. Right internal jugular port catheter tip seen in the lower superior vena cava. No hilar or mediastinal lymphadenopathy is appreciated. Pleura: There is no significant effusion. No pleural mass or thickening. Chest Wall/Axilla: Right anterior chest wall port reservoir in place. No axillary lymphadenopathy is seen. No internal mammary lymphadenopathy. ABDOMEN/PELVIS: Liver, Gallbladder, Biliary Tree: The liver is normal in size, shape, and attenuation. No focal hepatic lesion or biliary ductal dilatation is present. The gallbladder is unremarkable with no evidence of radiopaque gallstones, gallbladder wall thickening, or pericholecystic inflammatory changes. Pancreas: Unremarkable. No abnormal mass or peripancreatic inflammatory change. Spleen: Unremarkable. Adrenal Glands: Unremarkable. Kidneys and Ureters: The kidneys are normal in size, shape, and attenuation. No hydronephrosis or hydroureter or calculi seen. No perinephric stranding. There is a mildly complex fluid collection seen about the left psoas muscle adjacent to the medial lower pole of the left kidney with Hounsfield unit measurements of approximately 15. It measures approximately 5.8 x 3.7 x 7.3 cm in size. This is without significant change from previous study of December 16, 2023. This may represent a renal cyst or retroperitoneal cyst. Left parapelvic cyst present. Bladder: Unremarkable. Gastrointestinal Tract: No dilated loops of large or small bowel are evident. No free air or free fluid is appreciated. Status post previous colonic surgery with suture lines seen within the transverse colon and distal descending colon. Clips are seen about the cecum and appendix is not visualized and patient may be status post appendectomy. No lymphadenopathy is appreciated. Abdominal Wall: Status post previous anterior midline and right-sided surgery. No hernia is appreciated. Lymph Nodes: No lymphadenopathy appreciated. Vascular: Inferior vena cava filter in place. No abdominal aortic aneurysm or dissection. Pelvic Viscera: Unremarkable. Osseous Structures: No acute or destructive bony lesions are identified. There is degenerative change of the right glenohumeral joint and acromioclavicular joint. There are bilateral L5 pars defects with grade 1 spondylolisthesis L5-S1 and L4-L5 with L5-S1 and L4-L5 disc space narrowing. Multilevel degenerative marginal spurring is seen within the thoracic and lumbar spine. CT/CT abdomen pelvis w IV con IMPRESSION: No specific findings to suggest recurrent or metastatic disease. Status post partial colonic resection. Stable either a left renal cyst or retroperitoneal cyst. Electronically signed by: Kelvin Boland MD 09/10/2024 06:21 PM [facility]
[2024-09-10] MEDS: Barium Sulfate Oral (Vanilla) 450 ML ORAL.SUSP 900 ML PO (11:09)
[2024-09-10] MEDS: iohexoL 350 MG/ML 100 ML INFUS..BTL IV (11:10)
== END 2024-09-10 08:41 | disposition home or self-care (01) ==
LOC: HO.CT 08:40
PROVIDERS: PCP Internal Medicine; Visit Provider Internal Medicine Medical Oncology
DX: C18.9 Malignant neoplasm of colon, unspecified (principal)
CPT/HCPCS: 71260; 74177; Q9967

== ENCOUNTER 2024-10-16 14:49 | Outpatient (REF) | payer MEDICARE, MEDICAID, SELFPAY ==
--- NOTE | ~2024-10-16 | US_ITS ---
EXAMINATION: US TRIPLEX UPPER EXTREMITY, RIGHT CLINICAL INFORMATION: Follow-up of DVT COMPARISON: 02/08/2024 TECHNIQUE: Color-flow triplex imaging with spectral analysis and compression Doppler was performed on the right upper extremity. FINDINGS: The right internal jugular, subclavian, and axillary veins are patent and free of thrombus. There is central venous catheter seen in the right subclavian vein without thrombus formation. Spectral doppler waveforms are normal. There is a minimal amount of wall adherent thrombus in the proximal brachial vein. Patent color-flow with normal venous waveforms seen. There is normal compressibility in the mid and distal brachial vein. The basilic, cephalic, radial, and ulnar veins are patent and compressible. US/US venous duplex UE RT IMPRESSION: Stable mild wall adherent chronic thrombus in the right brachial vein. No acute deep venous thrombosis Electronically signed by: Trino Madera MD 10/16/2024 03:30 PM [facility]
== END 2024-10-16 14:50 | disposition home or self-care (01) ==
LOC: HO.US 14:49
PROVIDERS: Visit Provider Internal Medicine Medical Oncology
DX: I82.721 Chronic embolism and thrombosis of deep veins of right upper extremity (principal)
CPT/HCPCS: 93971

== ENCOUNTER 2024-10-23 10:45 | Outpatient (AMB) | payer MEDICARE, MEDICAID, SELFPAY ==
[2024-10-23 10:46] VITALS: BP 130/82; PULSE 82; O2SAT 99; BMI 31.4
--- NOTE | 2024-10-23 10:46 | MHC.PC.OV ---
Vital Signs 10/23/24 10:46 Height 5 ft 6 in Weight 194 lb 8 oz BMI 31.4 BP 130/82 Blood Pressure Location Lt brachial Position Sitting Pulse 82 Pulse Source Pulse Oximeter Pulse Oximetry (%) 99 Oxygen Delivery Method Room Air Intake Visit Reasons: preop Manager Pediatric Required: No Accompanied by: Self / Same As Patient Allergies No Known Allergies [No Known Allergies*] Allergy (Verified 10/23/24 11:05) Medication List - Last Reconciled 10/23/24 by Nelson Estevez MD apixaban (Eliquis) 5 mg PO BID docusate sodium (Colace) 100 mg PO DAILY metoprolol succinate ER 50 mg PO DAILY omeprazole 20 mg PO DAILY ondansetron 8 mg PO Q8H psyllium husk (Metamucil) 0.4 grams PO BEDTIME PRN sennosides (Senokot) 8.6 mg PO BID Tobacco use date assessed: 10/23/24 Fall risk assessment: No Falls in past year Last assessed Fall Risk: 10/23/24 Dental Screening Dental Screen Date: 10/23/24 Did you have a dental visit in the last 12 months?: Yes Did you have a dental problem in the last 6 months where you did not have access to dental care?: No Was dental information given to patient?: Patient has dentist HPI preop HPI Details Patient comes in at the request of Dr. Jsoh Robles for a preoperative medical examination for clearance for surgery He is currently scheduled for cataract extraction/phacoemulsification with IOL under MAC of the right eye on 10/29/2024, followed by the same procedure on the left eye a couple of weeks later on 11/12/2024 Patient states that he currently feels well He denies any headaches or dizziness Denies any chest pains, no SOB No nausea/vomiting, no abdominal pain No change in bowel habits noted He completed his adjuvant chemotherapy for his recurrent adenocarcinoma of the colon with m-FOLFOX on 04/23/2024 He had a follow up CT of the chest and abdomen/pelvis done last month and would like to know how his scans came out FORMERLY [facility], [facility] Medical History (Updated 10/24/24 @ 22:36 by Nelson Estevez MD) Obesity (BMI 30-39.9) Essential hypertension Pure hypercholesterolemia Recurrent carcinoma of colon Cataracts, bilateral Wound check, abscess Adenocarcinoma of transverse colon Surgical History History of colectomy (12/22/23) S/P IVC filter History of partial colectomy Family History Mother CVA (cerebral vascular accident) Brother Heart disease Social History Household Members: Family Housing: House Do you presently have visiting nurse or other home services: No Patient Tobacco Use Status: Never used Tobacco e-Cigarette/Vaping Use: Never Used service: No Cognitive needs: No Hearing needs: No Vision needs: No Questionnaire PHQ-9 Over the last 2 weeks, how often have you been bothered by any of the following problems? 1. Little interest or pleasure in doing things: not at all 2. Feeling down, depressed, or hopeless: several days 3. Trouble falling or staying asleep, or sleeping too much: several days 4. Feeling tired or having little energy: several days 5. Poor appetite or overeating: not at all 6. Feeling bad about yourself - or that you are a failure or have let yourself or your family down: not at all 7. Trouble concentrating on things, such as reading the newspaper or watching television: not at all 8. Moving or speaking so slowly that other people could have noticed. Or the opposite - being so fidgety or restless that you have been moving around a lot more than usual: not at all 9. Thoughts that you would be better off or of hurting yourself in some way: not at all Total score: 3 Depression Screening Interpretation: Positive (Offered medical management or Counseling Services) Depression Screening Follow-up: Declines treatment Depression Screening Done: Yes 65432 - PHQ-9 Billing: Yes Source: Developed by Drs. Kevin Villaseñor, Gloria Collazo, Yemi Walsh and colleagues, with an educational grace from [employer] Thrive Questionnaire Date Thrive assessed: 10/23/24 I am a: Patient What is your living situation today?: I have a steady place to live Within the past 12 months, did the food you bought not last and you didn't have the money to get more?: I choose not to answer this question Within the past 12 months, did you worry whether your food would run out before you got money to buy more?: Sometimes True Do you have trouble paying for medicines?: I choose not to answer this question Do you have trouble getting transportation to medical appointments?: No Do you have trouble paying your heating and electricity bill?: No Do you have trouble taking care of your child, family member or friend?: No Do you have trouble with day-to-day activities such as bathing, preparing meals, shopping, managing finances, etc.?: I choose not to answer this question Are you currently unemployed and looking for a job?: I choose not to answer this question Are you interested in more education?: I choose not to answer this question Please select the resources that you would like help with: Paying for medicine Currently or been in a relationship where the following occur: I choose not to answer THRIVE Score: 1 AUDIT C Alcohol Use Questionnaire (AUDIT-C) 1. How often do you have a drink containing alcohol?: Never 3. How often do you have six or more drinks on one occasion?: Never Total Score: 0 Score Reviewed/Action Taken: Yes COURTNEY-7 AMB Questionnaire COURTNEY-7 Date COURTNEY - 7 assessed: 10/23/24 Feeling nervous, anxious, or on edge: 0 = Not at all Not being able to stop or control worryin = Not at all Worrying too much about different things: 0 = Not at all Trouble relaxin = Not at all Being so restless that it is hard to sit still: 0 = Not at all Becoming easily annoyed or irritable: 0 = Not at all Feeling afraid as if something awful might happen: 0 = Not at all Total COURTNEY-7 score (0-4 normal; 5-9 mild; 10-14 moderate; 15-21 severe): 0 Source: Developed by Drs. Kevin Villaseñor, Gloria Collazo, Yemi Walsh and colleagues, with an educational grace from [employer]. Review of Systems Const Denies chills, Denies fatigue, Denies fever(s) and Denies headache(s) Eyes Reports blurry vision (in both eyes) ENT Denies dysphagia, Denies dizziness, Denies otalgia, Denies headache(s), Denies neck pain, Denies odynophagia and Denies sore throat Card Denies chest pain, Denies palpitations and Denies dyspnea Resp Denies chest congestion, Denies cough and Denies dyspnea GI Denies abdominal pain, Denies constipation, Denies dysphagia, Denies heartburn, Denies diarrhea, Denies nausea, Denies odynophagia and Denies vomiting Denies dysuria, Denies nocturia and Denies urinary frequency Musc Denies back pain and Denies neck pain Skin/Breast Denies rash Neuro Denies dizziness and Denies headache(s) Endo Denies fatigue and Denies palpitations Physical exam (Primary Care) Vital Signs: Last Vital Signs Pulse 82 10/23/24 10:46 BP 130/82 10/23/24 10:46 Pulse Ox 99 10/23/24 10:46 Oxygen Delivery Method Room Air 10/23/24 10:46 BMI result Body Mass Index 31.4 Tobacco/Smoking Status: Tobacco use Status Tobacco use date assessed 10/23/24 10/23/24 10:53 Patient Tobacco Use Status Never used Tobacco 10/23/24 10:53 e-Cigarette/Vaping Use Never Used 10/23/24 10:53 PHQ-9: PHQ-9 Score PHQ-9: Total score 3 10/23/24 13:14 Depression Screening Interpretation: Positive (Offered medical management or Counseling Services) Depression Screening Follow-up: Declines treatment Thrive Assessment: Date of Thrive Assessment Date Thrive assessed 10/23/24 10/23/24 10:53 Currently or been in a relationship where the following occur: I choose not to answer Const General: no acute distress and alert HENMT Ears: TM's normal bilaterally and EAC's normal Throat: Yes posterior oropharynx normal and Yes tonsils normal (no TP congestion) Neck Neck: Yes supple and No lymphadenopathy Thyroid: Thyroid normal Resp Auscultation: clear to auscultation bilaterally, no rales and no wheezes Cardio Rate: regular rate Rhythm: regular rhythm Heart sounds: no murmurs GI Palpation (GI): Soft to palpation and nontender Auscultation: normal bowel sounds General: Yes no CVA tenderness Back/Spine/Pelvis Back: no CVA tenderness Thoracic/Lumbar Spine: No lumbar spinal tenderness Skin General skin exam: no rashes or lesions noted Rashes: no rashes Extrem General: Yes no clubbing, cyanosis or edema Results Reviewed Results Reviewed: Laboratory Tests 10/08/24 13:45 WBC 6.8 Hgb 11.7 L Hct 37.2 L Plt Count 211 Sodium 141 Potassium 3.9 Creatinine 0.87 Estimated GFR > 60 Random Glucose 104 Calcium 8.8 AST 35 ALT 18 Coding Level of Care Code Est Pt Level 4 (89962) Diagnoses Preoperative examination Z01.818 Age-related cataract of both eyes, unspecified age-related cataract type H25.9 Age-related cataract type: unspecified Cataract type: age-related Essential hypertension I10 Pure hypercholesterolemia E78.00 Recurrent carcinoma of colon C18.9 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 I82.721 Affected thrombotic vein of extremity: brachial Chronicity: chronic Gastroesophageal reflux disease without esophagitis K21.9 Esophagitis presence: without esophagitis Additional Codes PHQ-9 - 52387 - PHQ-9 Billing: Yes ([id number]) Assessment & Plan Assessment & Plan (1) Preoperative examination: Code(s): Z01.818 - Encounter for other preprocedural examination Category: Medical Plan: Patient presents with acceptable risks for planned low cardiac risk procedure He is currently medically optimized and does not appear to have any contraindications for planned surgery (2) Cataracts, bilateral: Code(s): H26.9 - Unspecified cataract Category: Medical Qualifiers: Age-related cataract type: unspecified Cataract type: age-related Qualified Code(s): H25.9 - Unspecified age-related cataract Plan: He is currently scheduled for cataract extraction/phacoemulsification with IOL under MAC of the right eye on 10/29/2024, followed by the same procedure on the left eye a couple of weeks later on 11/12/[address] Josh Lucia (3) Essential hypertension: Code(s): I10 - Essential (primary) hypertension Category: Medical Plan: Reinforced low sodium diet - goal is systolic BP of 120 to 130 mm or less Continue Metoprolol ER 50 mg QD (4) Pure hypercholesterolemia: Code(s): E78.00 - Pure hypercholesterolemia, unspecified Category: Medical Plan: His cholesterol was still elevated on his recent labs done last month, with his total cholesterol at 202 mg/dl and LDL cholesterol at 132 mg/dl but both have improved slightly from a couple of months ago with diet modification Reinforced low cholesterol diet Will recheck his labs and fasting lipids in 3 months for follow up (5) Recurrent carcinoma of colon: Comment: diagnosed in 2023 - s/p transverse colectomy in 11/2023, followed by adjuvant chemotherapy from 02/13/2024 through 04/23/2024 Code(s): C18.9 - Malignant neoplasm of colon, unspecified Category: Medical Plan: Patient completed his adjuvant chemotherapy for his recurrent adenocarcinoma of the colon with m-FOLFOX on 04/23/2024 He had a follow up CT of the chest and abdomen/pelvis done last month, which came out negative for recurrent or metastatic disease (6) Deep vein thrombosis of right upper extremity: Code(s): I82.621 - Acute embolism and thrombosis of deep veins of right upper extremity Category: Medical Qualifiers: Affected thrombotic vein of extremity: brachial Chronicity: chronic Qualified Code(s): I82.721 - Chronic embolism and thrombosis of deep veins of right upper extremity Plan: PET scan done on 01/29/24 revealed findings that raised concern for a right upper extremity DVT, especially since he had a Port-A-Cath placed in his right upper extremity recently Venous doppler of the right upper extremity done on 02/08/24 revealed (+) possible partial thrombus present in the proximal right brachial vein. The venous catheter is partially visualized in the right subclavian vein Patient was then started on Eliquis He had a follow up venous doppler done last week, which revealed (+) stable mild wall adherent chronic thrombus in the right brachial vein. No acute deep venous thrombosis Continue Eliquis 5 mg BID (7) GERD (gastroesophageal reflux disease): Code(s): K21.9 - Gastro-esophageal reflux disease without esophagitis Category: Medical Qualifiers: Esophagitis presence: without esophagitis Qualified Code(s): K21.9 - Gastro-esophageal reflux disease without esophagitis Plan: Dietary restrictions reinforced Continue Omeprazole 20 mg QD Plan Patient is currently medically optimized and does not have any contraindications to undergo planned cataract surgeries next month - he is presently cleared for surgery Follow up in 3 months Orders: Orders Complete Blood Count Auto Diff 3 Months D64.9 - Anemia, unspecified Lipid Panel 3 Months E78.00 - Pure hypercholesterolemia, unspecified Comprehensive [place]. Panel Fast 3 Months E78.00 - Pure hypercholesterolemia, unspecified
== END 2024-10-23 11:18 | disposition home or self-care (01) ==
PROVIDERS: PCP Internal Medicine; Visit Provider Internal Medicine
DX: I10 Essential (primary) hypertension (principal); C18.9 Malignant neoplasm of colon, unspecified; I82.721 Chronic embolism and thrombosis of deep veins of right upper extremity; Z01.818 Encounter for other preprocedural examination; H25.9 Unspecified age-related cataract; E78.00 Pure hypercholesterolemia, unspecified; K21.9 Gastro-esophageal reflux disease without esophagitis

== ENCOUNTER → 2024-10-23 10:45 | Outpatient (BNVA) | payer MEDICARE, MEDICAID, SELFPAY | PROVIDERS: PCP Internal Medicine; Visit Provider Internal Medicine | DX: Z01.818 Encounter for other preprocedural examination (principal); H25.9 Unspecified age-related cataract; I10 Essential (primary) hypertension; E78.00 Pure hypercholesterolemia, unspecified; C18.9 Malignant neoplasm of colon, unspecified; I82.721 Chronic embolism and thrombosis of deep veins of right upper extremity; K21.9 Gastro-esophageal reflux disease without esophagitis | CPT/HCPCS: 96127; 99212 ==

== ENCOUNTER 2024-10-29 06:35 | Day surgery (SDC) | payer MEDICARE, MEDICAID, SELFPAY ==
[2024-10-25 11:31] VITALS: BMI 31.4
--- NOTE | 2024-10-25 12:36 | HO.ANESPROP2 ---
Documented by User: Ekaterina Torres NP 10/25/24 12:37 HPI - Anesthesia Eval Consult details Narrative: 73yo M for Right Cataract Extraction IOL Insertion No previous cataract on record Eliquis for DVT , IVC filter in situ PMFSH Active Problems Active Problems: All Active Problems Obesity (BMI 30-39.9) (Acute) Cataracts, bilateral (Acute) Preoperative examination (Acute) Essential hypertension (Acute) Pure hypercholesterolemia (Acute) Hypercholesterolemia (Acute) Constipation (Acute) Annual physical exam (Acute) Deep vein thrombosis of right upper extremity (Acute) Admission for fitting of Port-A-Cath (Acute) Status post colon resection (Acute) Recurrent carcinoma of colon (Acute) Colon cancer (Acute) GERD (gastroesophageal reflux disease) (Acute) Severe anemia (Acute) GI (gastrointestinal bleed) (Acute) Adenocarcinoma (Acute) Past Medical History Medical History GERD (gastroesophageal reflux disease) Hx of deep venous thrombosis Obesity (BMI 30-39.9) Essential hypertension Pure hypercholesterolemia Cataracts, bilateral Wound check, abscess Recurrent carcinoma of colon Adenocarcinoma of transverse colon Family History Family History Mother CVA (cerebral vascular accident) Brother Heart disease Family history of problems with anesthesia: No Surgical History Surgical History History of colectomy (12/22/23) S/P IVC filter History of partial colectomy History of Problems with Anesthesia: No Social History Social History Household Members: Family Housing: House Do you presently have visiting nurse or other home services: No Patient Tobacco Use Status: Never used Tobacco e-Cigarette/Vaping Use: Never Used Use of substances other than those prescribed or required for medical reasons: No Are you DNR?: No Advance Directives: No Advance Directives Information Provided: Yes service: No Cognitive needs: No Hearing needs: No Vision needs: No Meds Allergies Allergy/AdvReac Type Severity Reaction Status Date / Time No Known Allergies Allergy Verified 10/29/24 08:22 [No Known Allergies*] Exam Height,Weight and Vital Signs: Height 5 ft 6 in Weight 88.224 kg Assessment and Plan Assessment Anesthesia Assessment: Chart Reviewed Final Anesthetic Review Family History of Problems with Anesthesia: No History of Problems with Anesthesia: No Documented by User: Gosia Henry MD 10/29/24 09:06 PMFSH Past Medical History Medical History GERD (gastroesophageal reflux disease) Hx of deep venous thrombosis Obesity (BMI 30-39.9) Essential hypertension Pure hypercholesterolemia Cataracts, bilateral Wound check, abscess Recurrent carcinoma of colon Adenocarcinoma of transverse colon Family History Family History Mother CVA (cerebral vascular accident) Brother Heart disease Surgical History Surgical History History of colectomy (12/22/23) S/P IVC filter History of partial colectomy Social History Social History Household Members: Family Housing: House Do you presently have visiting nurse or other home services: No Patient Tobacco Use Status: Never used Tobacco e-Cigarette/Vaping Use: Never Used Use of substances other than those prescribed or required for medical reasons: No Are you DNR?: No Advance Directives: No Advance Directives Information Provided: Yes service: No Cognitive needs: No Hearing needs: No Vision needs: No Meds Allergies Allergy/AdvReac Type Severity Reaction Status Date / Time No Known Allergies Allergy Verified 10/29/24 08:22 [No Known Allergies*] Exam Airway Mallampati Class: III TM Dist: >3cm Neck ROM: Full Loose/Missing/Broken Teeth: No Heart: RRR Lungs: CTA Assessment and Plan Assessment Anesthesia Assessment: Anesthesia Plan Discussed Final Anesthetic Review NPO: Yes ASA Class: III Final Preanesthetic Review: Meds/Allgs Chart Reviewed, Consent Obtained/Reviewed and Anes Risks/Benef Reviewed Patient Risk: Intermediate Procedure Risk: Low Anesthetic Plan Anesthetic Plan: MAC: Disposition: Standard PACU
[2024-10-29 07:48] VITALS: BMI 31.3
[2024-10-29] MEDS: Tetracaine HCl/PF 0.5% Oph Sol 4 ML DROPS 1 DROP EYE-RIGHT (08:02)
[2024-10-29] MEDS: Cyclopentolate 1 % Ophth Sol 2 ML DRPBTL 1 DROP EYE-RIGHT ×3 (08:04→08:16)
[2024-10-29] MEDS: Tropicamide 1 % Ophth Sol 3 ML BTL 1 DROP EYE-RIGHT ×3 (08:06→08:17)
[2024-10-29] MEDS: Ketorolac Tromethamine 0.5% Op 10 ML DROPS 1 DROP EYE-RIGHT ×3 (08:07→08:18)
[2024-10-29] MEDS: Phenylephrine HCL 2.5% Oph SoL 2 ML BOTTLE 1 DROP EYE-RIGHT ×3 (08:09→08:20)
[2024-10-29] MEDS: Lactated Ringers 500 ML 50 ML IV (08:14)
[2024-10-29 08:15] VITALS: BP 128/76; PULSE 76; RESP 15; TEMP 36.8; O2SAT 97
--- NOTE | 2024-10-29 08:49 | P.PCNO_ITS ---
Ophthalmology Procedure Procedure Date of Service: 10/29/24 Ophthalmology Viscoelastic: Healon Duet Dual Pack Pro Ophthalmology Lenses: IOL Acrysof MP - [id number] (23) Procedure Notes: PREOPERATIVE DIAGNOSIS: Decreased visual acuity right eye secondary to cataract POSTOPERATIVE DIAGNOSIS: Same PROCEDURE: Right cataract extraction with intraocular lens insertion SURGEON: Josh Lucia M.D. ANESTHESIA: Topical/MAC ESTIMATED BLOOD LOSS: None COMPLICATIONS: None After obtaining informed consent, the patient was brought to the operating room suite and placed in the supine position. After adequate sedation per anesthesia, topical drops of Tetracaine were given to the right eye. The eye was then prepped and draped in the usual sterile fashion. The operating room microscope was then positioned over the operative eye and a lid speculum placed. A paracentesis was created. Viscoelastic was then instilled into the anterior chamber. A three plane incision was then created temporally, utilizing a 2.85 mm keratome. Capsulotomy forceps were then utilized to create a circular tear capsulotomy. Hydrodissection and hydrodelineation were carried out until adequate mobilization of the nucleus occurred. Phacoemulsification was then utilized to remove the dense central nucl eus followed by removal of the cortical material utilizing the automated aspiration irrigation unit. Viscoelastic was instilled into the posterior capsular bag followed by placement of a posterior chamber intraocular lens without difficulty. The residual Viscoelastic was then removed utilizing the automated IA machine. The wound was checked and found to be watertight. The patient tolerated the procedure well and the lid speculum was removed. Intracameral injection of Vigamox 0.1 mL followed by a subtenon injection of Kenalog-40 0.2 mL were administered. The patient will be seen in the a.m.
--- NOTE | 2024-10-29 08:49 | MHC.SHP ---
Pre-Procedural Eval Section A - 24 Hr Update-Section A only Date of Service: 10/29/24 The patient is an INPATIENT: No Changes since office visit: No Cold of Flu in the past 2 weeks, No New Medical Problems, No Changes in Medication and No Patient answered all questions The patient has been examined within 24 hours of the surgical procedure. The History & Physical has been completed within 30 days and I have reviewed it.: Yes Section B - Complete if H&P > 30 days Chief Complaint: Age-related nuclear cataract, right eye Allergies: Allergies Allergy/AdvReac Type Severity Reaction Status Date / Time No Known Allergies Allergy Verified 10/29/24 08:22 [No Known Allergies*] Plan Diagnosis/Plan: Unchanged I have reviewed the history and physical and performed a pertinent physical examination on my patient. No changes have occurred unless specified. Time Spent With Patient Time: Total time managing care of this patient today ____ minutes.
[2024-10-29 09:18] VITALS: BP 122/68; PULSE 80; RESP 16; TEMP 36.4; O2SAT 97
== END 2024-10-29 09:29 | disposition home or self-care (01) ==
PROVIDERS: PCP Internal Medicine; Visit Provider Ophthalmology
PROC: (CPT 66985; principal; 2024-10-29 09:00)
DX: H25.11 Age-related nuclear cataract, right eye (principal); H54.7 Unspecified visual loss; Z83.511 Family history of glaucoma; H35.361 Drusen (degenerative) of macula, right eye; H35.09 Other intraretinal microvascular abnormalities; H43.393 Other vitreous opacities, bilateral; H52.13 Myopia, bilateral; Z85.038 Personal history of other malignant neoplasm of large intestine; Z92.21 Personal history of antineoplastic chemotherapy; Z90.49 Acquired absence of other specified parts of digestive tract; I82.721 Chronic embolism and thrombosis of deep veins of right upper extremity; I10 Essential (primary) hypertension; E78.00 Pure hypercholesterolemia, unspecified; Z95.828 Presence of other vascular implants and grafts; Z79.01 Long term (current) use of anticoagulants; Z79.899 Other long term (current) drug therapy
CPT/HCPCS: 66984; J2250; J3301; V2630

== ENCOUNTER 2024-11-12 06:33 | Day surgery (SDC) | payer MEDICARE, MEDICAID, SELFPAY ==
[2024-10-25 11:35] VITALS: BMI 31.4
[2024-11-12 07:40] VITALS: BP 140/69; PULSE 83; RESP 19; TEMP 36.1; O2SAT 97
[2024-11-12] MEDS: Tetracaine HCl/PF 0.5% Oph Sol 4 ML DROPS 1 DROP EYE-LEFT (07:55)
[2024-11-12] MEDS: Lactated Ringers 500 ML 20 ML IVCONT (07:55)
[2024-11-12] MEDS: Tropicamide 1 % Ophth Sol 3 ML BTL 1 DROP EYE-LEFT ×3 (07:56→07:57)
[2024-11-12] MEDS: Ketorolac Tromethamine 0.5% Op 10 ML DROPS 1 DROP EYE-LEFT ×3 (07:56→07:57)
[2024-11-12] MEDS: Cyclopentolate 1 % Ophth Sol 2 ML DRPBTL 1 DROP EYE-LEFT ×3 (07:56→07:57)
[2024-11-12] MEDS: Phenylephrine HCL 2.5% Oph SoL 2 ML BOTTLE 1 DROP EYE-LEFT ×3 (07:56→07:57)
--- NOTE | 2024-11-12 08:53 | MHC.SHP ---
Pre-Procedural Eval Section A - 24 Hr Update-Section A only Date of Service: 11/12/24 The patient is an INPATIENT: No Changes since office visit: No Cold of Flu in the past 2 weeks, No New Medical Problems, No Changes in Medication and No Patient answered all questions The patient has been examined within 24 hours of the surgical procedure. The History & Physical has been completed within 30 days and I have reviewed it.: Yes Section B - Complete if H&P > 30 days Chief Complaint: Age-related nuclear cataract, left eye Allergies: Allergies Allergy/AdvReac Type Severity Reaction Status Date / Time No Known Allergies Allergy Verified 10/29/24 08:22 [No Known Allergies*] Plan Diagnosis/Plan: Unchanged I have reviewed the history and physical and performed a pertinent physical examination on my patient. No changes have occurred unless specified. Time Spent With Patient Time: Total time managing care of this patient today ____ minutes.
--- NOTE | 2024-11-12 08:53 | HO.PNOPHT ---
Ophthalmology Procedure Procedure Date of Service: 11/12/24 Ophthalmology Viscoelastic: Healon Duet Dual Pack Pro Ophthalmology Lenses: IOL Acrysof MP - [id number] (23) Procedure Notes: PREOPERATIVE DIAGNOSIS: Decreased visual acuity left eye secondary to cataract POSTOPERATIVE DIAGNOSIS: Same PROCEDURE: Left cataract extraction with intraocular lens insertion SURGEON: Josh Lucia M.D. ANESTHESIA: Topical/MAC ESTIMATED BLOOD LOSS: None COMPLICATIONS: None After obtaining informed consent, the patient was brought to the operation room suite and placed in the supine position. After adequate sedation per anesthesia, topical drops of Tetracaine were given to the left eye. The eye was then prepped and draped in the usual sterile fashion. The operating room microscope was then positioned over the operative eye and a lid speculum placed. A paracentesis was created. Viscoelastic was then instilled into the anterior chamber. A three plane incision was then created temporally, utilizing a 2.85 mm keratome. Capsulotomy forceps were then utilized to create a circular tear capsulotomy. Hydrodissection and hydrodelineation were carried out until adequate mobilization of the nucleus occurred. Phacoemulsification was then utilized to remove the dense central nucleus followed by removal of the cortical material utilizing the automated aspiration irrigation unit. Viscoat elastic was instilled into the posterior capsular bag followed by placement of a posterior chamber intraocular lens without difficulty. The residual Viscoat elastic was then removed utilizing the automated IA machine. The wound was check and found to be watertight. The patient tolerated the procedure well and the lid speculum was removed. Intracameral injection of Vigamox 0.1 mL followed by a subtenon injection of Kenalog-40 0.2 mL were administered. The patient will be seen in the a.m.
--- NOTE | 2024-11-12 08:57 | P.CONAN_ITS ---
FORMERLY [facility] Active Problems Active Problems: All Active Problems Preoperative examination (Acute) Hypercholesterolemia (Acute) Constipation (Acute) Annual physical exam (Acute) Deep vein thrombosis of right upper extremity (Acute) Admission for fitting of Port-A-Cath (Acute) Status post colon resection (Acute) Colon cancer (Acute) GERD (gastroesophageal reflux disease) (Acute) Severe anemia (Acute) GI (gastrointestinal bleed) (Acute) Adenocarcinoma (Acute) Obesity (BMI 30-39.9) (Acute) Cataracts, bilateral (Acute) Essential hypertension (Acute) Pure hypercholesterolemia (Acute) Recurrent carcinoma of colon (Acute) Past Medical History Medical History GERD (gastroesophageal reflux disease) Hx of deep venous thrombosis Obesity (BMI 30-39.9) Essential hypertension Pure hypercholesterolemia Cataracts, bilateral Wound check, abscess Recurrent carcinoma of colon Adenocarcinoma of transverse colon Family History Family History Mother CVA (cerebral vascular accident) Brother Heart disease Family history of problems with anesthesia: No Surgical History Surgical History History of colectomy (12/22/23) S/P IVC filter History of partial colectomy History of Problems with Anesthesia: No Social History Social History Household Members: Family Housing: House Do you presently have visiting nurse or other home services: No Patient Tobacco Use Status: Never used Tobacco e-Cigarette/Vaping Use: Never Used Have you been hit, kicked, punched, or otherwise hurt by someone within the past year? If so, by whom?: No Are you DNR?: No Advance Directives: No Advance Directives Information Provided: Yes Nutrition Risks: No Nutritional Risk service: No Cognitive needs: No Hearing needs: No Vision needs: No Meds Allergies Allergy/AdvReac Type Severity Reaction Status Date / Time No Known Allergies Allergy Verified 10/29/24 08:22 [No Known Allergies*] Active Medications: Current Medications Lactated Ringer's (Lr) 500 mls @ 20 mls/hr IVCONT .Q24H ASCENCION Last Admin: 11/12/24 07:55 Dose: 20 mls/hr Povidone Iodine (Povidone Iodine 5 % Ophth Soln 30 Ml Bottle) 1 appl EYE-LEFT PREOP PRN PRN Reason: Pre-Op Surgical Implant Prophy Exam Height,Weight and Vital Signs: Height 5 ft 6 in Weight 88.224 kg Last Vital Signs Temp 97 F 11/12/24 07:40 Pulse 83 11/12/24 07:40 Resp 19 11/12/24 07:40 BP 140/69 H 11/12/24 07:40 Pulse Ox 97 11/12/24 07:40 O2 Del Method Room Air 11/12/24 07:40 Airway Mallampati Class: III TM Dist: >3cm Neck ROM: Full Loose/Missing/Broken Teeth: No Heart: RRR Lungs: CTA Assessment and Plan Assessment Anesthesia Assessment: Anesthesia Plan Discussed and Chart Reviewed Final Anesthetic Review Family History of Problems with Anesthesia: No History of Problems with Anesthesia: No NPO: Yes ASA Class: III Final Preanesthetic Review: Meds/Allgs Chart Reviewed, Consent Obtained/Reviewed and Anes Risks/Benef Reviewed Patient Risk: Intermediate Procedure Risk: Low Anesthetic Plan Anesthetic Plan: MAC: Disposition: Standard PACU
[2024-11-12 09:19] VITALS: BP 130/76; PULSE 78; RESP 16; TEMP 36.5; O2SAT 97
[2024-11-12 09:34] VITALS: BP 130/76; PULSE 78; RESP 16; TEMP 36.5; O2SAT 97
== END 2024-11-12 09:50 | disposition home or self-care (01) ==
PROVIDERS: PCP Internal Medicine; Visit Provider Ophthalmology
PROC: (CPT 66985; principal; 2024-11-12 09:00)
DX: H25.12 Age-related nuclear cataract, left eye (principal); H53.8 Other visual disturbances; Z83.511 Family history of glaucoma; H43.393 Other vitreous opacities, bilateral; H35.09 Other intraretinal microvascular abnormalities; H52.13 Myopia, bilateral; Z85.038 Personal history of other malignant neoplasm of large intestine; Z92.21 Personal history of antineoplastic chemotherapy; Z90.49 Acquired absence of other specified parts of digestive tract; I10 Essential (primary) hypertension; E78.00 Pure hypercholesterolemia, unspecified; I82.721 Chronic embolism and thrombosis of deep veins of right upper extremity; Z95.828 Presence of other vascular implants and grafts; E66.9 Obesity, unspecified; Z68.31 Body mass index [BMI] 31.0-31.9, adult; Z79.01 Long term (current) use of anticoagulants; Z79.899 Other long term (current) drug therapy
CPT/HCPCS: 66984; J2250; J3301; V2630

== ENCOUNTER 2025-01-09 08:45 | Outpatient (REF) | payer MEDICARE, MEDICAID, SELFPAY ==
--- NOTE | ~2025-01-09 | US_ITS ---
EXAMINATION: US TRIPLEX UPPER EXTREMITY, RIGHT CLINICAL INFORMATION: Chronic thrombus, right brachial vein. COMPARISON: October 16, 2024. TECHNIQUE: Color-flow triplex imaging with spectral analysis and compression Doppler was performed on the right upper extremity. FINDINGS: The right internal jugular, subclavian, and axillary veins are patent with normal spectral Doppler waveforms. The imaged segment of the right brachiocephalic vein is patent. Spectral doppler waveforms are normal. The brachial, basilic, cephalic, radial, and ulnar veins demonstrated a nonocclusive old/chronic thrombosis in the right brachial vein.. US/US venous duplex UE RT IMPRESSION: No acute deep venous thrombosis right upper extremity. Old/chronic thrombus right brachial vein. Stable. Electronically signed by: Mike Vizcaino MD 01/09/2025 10:08 AM EDT
== END 2025-01-09 08:46 | disposition home or self-care (01) ==
LOC: HO.US 08:45
PROVIDERS: PCP Internal Medicine; Visit Provider Internal Medicine Medical Oncology
DX: I82.621 Acute embolism and thrombosis of deep veins of right upper extremity (principal); C18.9 Malignant neoplasm of colon, unspecified
CPT/HCPCS: 93971

== ENCOUNTER → 2025-01-09 08:47 | Outpatient (BNV) | payer MEDICARE, MEDICAID, SELFPAY | PROVIDERS: PCP Internal Medicine; Visit Provider Radiology Diagnostic Radiology | DX: I82.721 Chronic embolism and thrombosis of deep veins of right upper extremity (principal) | CPT/HCPCS: 93971 ==

== ENCOUNTER 2025-02-05 09:48 | Outpatient (AMB) | payer MEDICARE, MEDICAID, SELFPAY ==
--- NOTE | 2025-02-05 09:51 | MHC.PC.OV ---
Vital Signs 02/05/25 09:52 Height 5 ft 6 in Weight 197 lb 6 oz BMI 31.9 BP 136/82 Blood Pressure Location Lt brachial Position Sitting Pulse 89 Pulse Source Pulse Oximeter Pulse Oximetry (%) 97 Oxygen Delivery Method Room Air Intake Visit Reasons: hyperlipidemia Wood Piler Required: No Accompanied by: Sister Allergies No Known Allergies [No Known Allergies*] Allergy (Verified 02/05/25 21:10) Medication List - Last Reconciled 02/05/25 by Nelsno Estevez MD apixaban (Eliquis) 5 mg PO BID docusate sodium (Colace) 100 mg PO DAILY metoprolol succinate ER 50 mg PO DAILY omeprazole 20 mg PO DAILY ondansetron 8 mg PO Q8H psyllium husk (Metamucil) 0.4 grams PO BEDTIME PRN sennosides (Senokot) 8.6 mg PO BID Tobacco use date assessed: 02/05/25 Fall risk assessment: No Falls in past year Last assessed Fall Risk: 02/05/25 Dental Screening Dental Screen Date: 02/05/25 Did you have a dental visit in the last 12 months?: Yes Did you have a dental problem in the last 6 months where you did not have access to dental care?: No Was dental information given to patient?: Patient has dentist HPI hyperlipidemia HPI Details Patient comes in today for his follow-up visit He was diagnosed with recurrent colon cancer last year on 12/22/2023 after he underwent exploratory laparotomy with transverse colectomy - pathology revealed recurrent adenocarcinoma in the transverse colon He was started on adjuvant chemotherapy with FOLFOX on 02/13/2024; he tolerated his treatment without any significant side effects and eventually completed 6 cycles of adjuvant chemotherapy with m-FOLFOX-6 on 04/23/2024 Patient had a follow-up chest, abdomen and pelvic CT done on 09/10/2024 which reveals no specific findings suggesting recurrent or metastatic disease His first bout with colon cancer was back in 2005 and he underwent surgical resection/partial colectomy and chemotherapy He has had at least 2 screening colonoscopies done since his initial cancer diagnosis in 2005 - his colonoscopy in February 2013 came out normal and repeat colonoscopy in October 2016 revealed a couple of tubular adenomas He apparently moved back to [place] as he was lost to follow-up after 07/03/2019 He eventually had a repeat colonoscopy done in [place] on 11/28/2023 that revealed a large nodular mass in the proximal transverse colon and pathology showed invasive adenocarcinoma and he elected to come back here to the [place] for treatment He again underwent transverse colectomy on 12/22/2023 and eventually completed his adjuvant chemotherapy for his recurrent adenocarcinoma of the colon with m-FOLFOX on 04/23/2024 Per Oncology, he is now due for repeat colonoscopy for continuing surveillance and needs to be referred to GI for this Patient's states that they tried to reach out to Gastroenterology recently they were advised that Dr. Persaud has already referred him for repeat colonoscopy but was reportedly told that they need to get a new referral from his PCP Patient also apparently developed a right upper extremity DVT last year when he still a Port-A-Cath in place for his cancer treatment An ultrasound of his right upper extremity done on 02/08/2024 revealed a partial thrombus present in the proximal right brachial vein and he was started on Eliquis 5 mg BID, which he has been taking since He had a repeat right upper extremity ultrasound done last month on 01/09/2025 that revealed the presence of an old/chronic thrombus in the right brachial vein that appears stable with no acute deep venous thrombosis otherwise in the right upper extremity Patient states that he would like to continue on Eliquis at this time States that he feels okay otherwise He denies any headaches or dizziness Denies any chest pains, no shortness of breath No nausea/vomiting, no abdominal pain No change in bowel habits noted He also underwent cataract surgery a few months ago in October 2024 successfully and states that he has had no problems since his surgery [facility] Medical History GERD (gastroesophageal reflux disease) Hx of deep venous thrombosis Obesity (BMI 30-39.9) Essential hypertension Pure hypercholesterolemia Cataracts, bilateral Wound check, abscess Recurrent carcinoma of colon Adenocarcinoma of transverse colon Surgical History History of colectomy (12/22/23) S/P IVC filter History of partial colectomy Family History Mother CVA (cerebral vascular accident) Brother Heart disease Social History (Reviewed 02/05/25 @ 09:52 by JOBY Cano Household Members: Family Housing: House Do you presently have visiting nurse or other home services: No Patient Tobacco Use Status: Never used Tobacco e-Cigarette/Vaping Use: Never Used service: No Cognitive needs: No Hearing needs: No Vision needs: No Questionnaire PHQ-9 Over the last 2 weeks, how often have you been bothered by any of the following problems? 1. Little interest or pleasure in doing things: not at all 2. Feeling down, depressed, or hopeless: several days 3. Trouble falling or staying asleep, or sleeping too much: several days 4. Feeling tired or having little energy: several days 5. Poor appetite or overeating: not at all 6. Feeling bad about yourself - or that you are a failure or have let yourself or your family down: not at all 7. Trouble concentrating on things, such as reading the newspaper or watching television: not at all 8. Moving or speaking so slowly that other people could have noticed. Or the opposite - being so fidgety or restless that you have been moving around a lot more than usual: not at all 9. Thoughts that you would be better off or of hurting yourself in some way: not at all Total score: 3 Depression Screening Interpretation: Positive (Offered medical management or Counseling Services) Depression Screening Follow-up: Declines treatment Depression Screening Done: Yes 41690 - PHQ-9 Billing: Yes Source: Developed by Drs. Kevin Villaseñor, Gloria Collazo, Yemi Walsh and colleagues, with an educational grace from [employer]. Thrive Questionnaire Date Thrive assessed: 02/05/25 I am a: Patient What is your living situation today?: I have a steady place to live Within the past 12 months, did the food you bought not last and you didn't have the money to get more?: I choose not to answer this question Within the past 12 months, did you worry whether your food would run out before you got money to buy more?: Sometimes True Do you have trouble paying for medicines?: I choose not to answer this question Do you have trouble getting transportation to medical appointments?: No Do you have trouble paying your heating and electricity bill?: No Do you have trouble taking care of your child, family member or friend?: No Do you have trouble with day-to-day activities such as bathing, preparing meals, shopping, managing finances, etc.?: I choose not to answer this question Are you currently unemployed and looking for a job?: I choose not to answer this question Are you interested in more education?: I choose not to answer this question Please select the resources that you would like help with: Paying for medicine Currently or been in a relationship where the following occur: I choose not to answer THRIVE Score: 1 AUDIT C Alcohol Use Questionnaire (AUDIT-C) 1. How often do you have a drink containing alcohol?: Never 3. How often do you have six or more drinks on one occasion?: Never Total Score: 0 Score Reviewed/Action Taken: Yes COURTNEY-7 AMB Questionnaire COURTNEY-7 Date COURTNEY - 7 assessed: 02/05/25 Feeling nervous, anxious, or on edge: 0 = Not at all Not being able to stop or control worryin = Not at all Worrying too much about different things: 0 = Not at all Trouble relaxin = Not at all Being so restless that it is hard to sit still: 0 = Not at all Becoming easily annoyed or irritable: 0 = Not at all Feeling afraid as if something awful might happen: 0 = Not at all Total COURTNEY-7 score (0-4 normal; 5-9 mild; 10-14 moderate; 15-21 severe): 0 Source: Developed by Drs. Kevin Villaseñor, Gloria Collazo, Yemi Walsh and colleagues, with an educational grace from [employer]. Review of Systems Const Denies chills, Denies fatigue, Denies fever(s) and Denies headache(s) ENT Denies dysphagia, Denies dizziness, Denies otalgia, Denies headache(s), Denies neck pain, Denies odynophagia and Denies sore throat Card Denies chest pain, Denies palpitations and Denies dyspnea Resp Denies chest congestion, Denies cough and Denies dyspnea GI Denies abdominal pain, Denies constipation, Denies dysphagia, Denies heartburn, Denies diarrhea, Denies nausea, Denies odynophagia and Denies vomiting Denies difficulty urinating, Denies dysuria, Denies nocturia and Denies urinary frequency Musc Denies back pain and Denies neck pain Skin/Breast Denies rash Neuro Denies dizziness and Denies headache(s) Endo Denies fatigue and Denies palpitations Physical exam (Primary Care) Vital Signs: Last Vital Signs Pulse 89 02/05/25 09:52 BP 136/82 02/05/25 09:52 Pulse Ox 97 02/05/25 09:52 Oxygen Delivery Method Room Air 02/05/25 09:52 BMI result Body Mass Index 31.9 Tobacco/Smoking Status: Tobacco use Status Tobacco use date assessed 02/05/25 02/05/25 09:56 Patient Tobacco Use Status Never used Tobacco 02/05/25 09:56 e-Cigarette/Vaping Use Never Used 02/05/25 09:56 PHQ-9: PHQ-9 Score PHQ-9: Total score 3 02/05/25 10:23 Depression Screening Interpretation: Positive (Offered medical management or Counseling Services) Depression Screening Follow-up: Declines treatment Thrive Assessment: Date of Thrive Assessment Date Thrive assessed 02/05/25 02/05/25 09:56 Currently or been in a relationship where the following occur: I choose not to answer Const General: no acute distress and alert HENMT Ears: TM's normal bilaterally and EAC's normal Throat: Yes posterior oropharynx normal and Yes tonsils normal (no TP congestion) Neck Neck: Yes supple and No lymphadenopathy Thyroid: Thyroid normal Resp Auscultation: clear to auscultation bilaterally, no rales and no wheezes Cardio Rate: regular rate Rhythm: regular rhythm Heart sounds: no murmurs GI Palpation (GI): Soft to palpation and nontender Auscultation: normal bowel sounds General: Yes no CVA tenderness Back/Spine/Pelvis Back: no CVA tenderness Thoracic/Lumbar Spine: No lumbar spinal tenderness Skin Rashes: no rashes Extrem General: Yes no clubbing, cyanosis or edema Coding Level of Care Code Est Pt Level 4 (09963) Complex EM visit Add On G2211 Diagnoses Pure hypercholesterolemia E78.00 Essential hypertension I10 Recurrent carcinoma of colon C18.9 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 I82.721 Affected thrombotic vein of extremity: brachial Chronicity: chronic Gastroesophageal reflux disease without esophagitis K21.9 Esophagitis presence: without esophagitis Obesity (BMI 30-39.9) E66.9 Additional Codes PHQ-9 - 05267 - PHQ-9 Billing: Yes ([id number]) Assessment & Plan Assessment & Plan (1) Pure hypercholesterolemia: Code(s): E78.00 - Pure hypercholesterolemia, unspecified Category: Medical Plan: Reinforced low cholesterol diet Patient is reminded that his cholesterol was still elevated when they were last checked a few months ago in September 2024, with his total cholesterol at 202 mg/dl and LDL cholesterol at 132 mg/dl but both have improved slightly from previous Reinforced low cholesterol diet Will recheck his labs and fasting lipids in 3 months for follow up (2) Essential hypertension: Code(s): I10 - Essential (primary) hypertension Category: Medical Plan: Reinforced low sodium diet - goal is systolic BP of 120 to 130 mm or less Continue Metoprolol ER 50 mg QD (3) Recurrent carcinoma of colon: Comment: diagnosed in 2023 - s/p transverse colectomy in 11/2023, followed by adjuvant chemotherapy from 02/13/2024 through 04/23/2024 Code(s): C18.9 - Malignant neoplasm of colon, unspecified Category: Medical Plan: Patient completed his adjuvant chemotherapy for his recurrent adenocarcinoma of the colon with m-FOLFOX on 04/23/2024 He had a follow up CT of the chest and abdomen/pelvis done a few months ago, which came out negative for recurrent or metastatic disease Per oncology, he is now due for repeat colonoscopy and he will be referred to GI for this (4) Deep vein thrombosis of right upper extremity: Code(s): I82.621 - Acute embolism and thrombosis of deep veins of right upper extremity Category: Medical Qualifiers: Affected thrombotic vein of extremity: brachial Chronicity: chronic Qualified Code(s): I82.721 - Chronic embolism and thrombosis of deep veins of right upper extremity Plan: PET scan done last year on 01/29/24 revealed findings that raised concern for a right upper extremity DVT, especially since he had a Port-A-Cath placed in his right upper extremity at the time Venous doppler of the right upper extremity done on 02/08/24 revealed (+) possible partial thrombus present in the proximal right brachial vein. The venous catheter is partially visualized in the right subclavian vein Patient was then started on Eliquis 5 mg BID, which he is still on at present He had a follow up venous doppler done in September 2024, which revealed (+) stable mild wall adherent chronic thrombus in the right brachial vein with no acute deep venous thrombosis He had a repeat right upper extremity venous doppler done again about 2 to 3 weeks ago on 01/09/2025 - doppler revealed the presence of an old/chronic thrombus in the right brachial vein that appears stable with no acute deep venous thrombosis otherwise in the right upper extremity Patient states that he would like to continue on Eliquis at this time - continue Eliquis 5 mg BID (5) GERD (gastroesophageal reflux disease): Code(s): K21.9 - Gastro-esophageal reflux disease without esophagitis Category: Medical Qualifiers: Esophagitis presence: without esophagitis Qualified Code(s): K21.9 - Gastro-esophageal reflux disease without esophagitis Plan: Dietary restrictions reinforced Continue Omeprazole 20 mg QD (6) Obesity (BMI 30-39.9): Code(s): E66.9 - Obesity, unspecified Category: Medical Plan: Reinforced diet/exercise as tolerated/lose weight Plan Follow up in 3 months Orders: Orders Complete Blood Count Auto Diff 3 Months D64.9 - Anemia, unspecified [place]. Panel Fast 3 Months E78.00 - Pure hypercholesterolemia, unspecified Lipid Panel 3 Months E78.00 - Pure hypercholesterolemia, unspecified Referrals Gastroenterology Referral C18.9 - Malignant neoplasm of colon, unspecified, Z12.11 - Encounter for screening for malignant neoplasm of colon
[2025-02-05 09:52] VITALS: BP 136/82; PULSE 89; O2SAT 97; BMI 31.9
== END 2025-02-05 10:26 | disposition home or self-care (01) ==
LOC: HO.HMCH 09:48
PROVIDERS: PCP Internal Medicine; Visit Provider Internal Medicine
DX: I82.721 Chronic embolism and thrombosis of deep veins of right upper extremity (principal); C18.9 Malignant neoplasm of colon, unspecified; E66.9 Obesity, unspecified; Z68.31 Body mass index [BMI] 31.0-31.9, adult; E78.00 Pure hypercholesterolemia, unspecified; I10 Essential (primary) hypertension; K21.9 Gastro-esophageal reflux disease without esophagitis

== ENCOUNTER → 2025-02-05 09:48 | Outpatient (BNVA) | payer MEDICARE, MEDICAID, SELFPAY | PROVIDERS: PCP Internal Medicine; Visit Provider Internal Medicine | DX: E78.00 Pure hypercholesterolemia, unspecified (principal); I10 Essential (primary) hypertension; C18.9 Malignant neoplasm of colon, unspecified; I82.721 Chronic embolism and thrombosis of deep veins of right upper extremity; K21.9 Gastro-esophageal reflux disease without esophagitis; E66.9 Obesity, unspecified; Z68.31 Body mass index [BMI] 31.0-31.9, adult; Z71.3 Dietary counseling and surveillance | CPT/HCPCS: 96127; 99212 ==

== ENCOUNTER 2025-03-04 06:35 | Outpatient (REF) | payer MEDICARE, MEDICAID, SELFPAY ==
--- NOTE | ~2025-03-04 | CT_ITS ---
CLINICAL HISTORY: Recurrent colon cancer CT abdomen and pelvis with contrast Comparison: 09/10/2024 Findings: Lung bases clear. No acute bony abnormalities. Fatty infiltration of the liver without focal abnormality. Pancreas, Spleen and adrenal glands unremarkable. Gallbladder is within normal limits. No significant focal renal abnormalities. Renal cysts without stones or hydronephrosis. Abdominal aorta is normal in caliber. IVC filter. No free fluid or adenopathy in the pelvis. No diverticulitis. Appendix not identified. Status post partial left hemicolectomy. Impression: No acute process This document has been electronically signed by: Marco Olvera MD on 03/04/2025 19:48:03
--- NOTE | ~2025-03-04 | CT_ITS ---
CLINICAL HISTORY: Follow-up on colon cancer. CT chest with contrast Comparison: 09/10/2024 Findings: Lung colón are clear without acute infiltrates. No significant mediastinal adenopathy. No significant free pleural fluid. No significant focal bony abnormalities. Right infusion catheter tip SVC. Impression: No acute processes This document has been electronically signed by: Marco Olvera MD on 03/04/2025 19:50:59
[2025-03-04] MEDS: iohexoL 350 MG/ML 75 ML INFUS..BTL 85 ML IV (10:04)
[2025-03-04] MEDS: Barium Sulfate Oral (Mocha) 450 ML ORAL.SUSP 900 ML PO (10:05)
== END 2025-03-04 06:36 | disposition home or self-care (01) ==
LOC: HO.CT 06:35
PROVIDERS: PCP Internal Medicine; Visit Provider Internal Medicine Medical Oncology
DX: C18.9 Malignant neoplasm of colon, unspecified (principal)
CPT/HCPCS: 71260; 74177; Q9967

== ENCOUNTER → 2025-03-04 06:37 | Outpatient (BNV) | payer MEDICARE, MEDICAID, SELFPAY | PROVIDERS: PCP Internal Medicine; Visit Provider Radiology Diagnostic Radiology | DX: C18.9 Malignant neoplasm of colon, unspecified (principal) | CPT/HCPCS: 71260; 74177 ==

== ENCOUNTER 2025-03-07 08:58 | Outpatient (REF) | payer MEDICARE, MEDICAID, SELFPAY ==
[2025-03-07 09:09] LABS: MANUAL DIFF FLAG NO
[2025-03-07 09:26] LABS: Basophils Absolute Auto 0.1 X10*3/uL (0.0-0.2); Basophils Percent Auto 0.8 % (0-2); Eosinophils Absolute Auto 0.1 X10*3/uL (0.0-0.4); Eosinophils Percent Auto 1.4 % (0-4); Hematocrit 38.3 % (42.0-52.0); Hemoglobin 11.8 g/dl (14.0-18.0); Imm Gran Abs Auto 0.02 X10*3/uL (0.00-0.03); Imm Gran Pct Auto 0.3 % (0.0-0.4); Lymphocytes Absolute Auto 2.1 X10*3/uL (1.2-4.9); Lymphocytes Percent Auto 33.8 % (20-40); Mean Corpuscular HGB Conc 30.8 g/dl (31.0-36.0); Mean Corpuscular Hemoglobin 24.6 pg (27.0-33.0); Mean Corpuscular Volume 79.8 fL (80.0-98.0); Monocytes Absolute Auto 0.7 X10*3/uL (0.1-1.2); Monocytes Percent Auto 11.1 % (2-11); Neutrophils Absolute Auto 3.3 x10*3/uL (2.0-8.3); Neutrophils Percent Auto 52.6 % (45-73); Platelet Count 236 X10*3/uL (160-400); Red Cell Distribution Width 15.4 % (11.0-16.0); White Blood Count 6.3 X10*3/uL (4.8-10.8)
[2025-03-07 09:54] LABS: Alanine Aminotransferase 19 U/L (0-40); Alkaline Phosphatase 102 U/L (39-117); Anion Gap 10 (12-20); Aspartate Amino Transferase 28 U/L (5-37); Bilirubin Total 1.1 mg/dL (0.0-1.0); Blood Urea Nitrogen 16 mg/dL (9-16); Calcium 8.9 mg/dL (8.4-10.2); Carbon Dioxide 28 mmol/L (22-29); Chloride 107 mmol/L (96-108); Cholesterol 173 mg/dL (<200); Estimated Glomerular Filt Rate > 60; Glucose Fasting 107 mg/dL (60-99); HDL Cholesterol 38 mg/dL (>40); LDL Cholesterol Calculated 107 mg/dL (<100); Potassium 4.4 mmol/L (3.3-5.1); Sodium 141 mmol/L (135-145); Triglycerides 142 mg/dL (<150)
== END 2025-03-07 08:59 | disposition home or self-care (01) ==
LOC: HO.LAB 08:58
PROVIDERS: PCP Internal Medicine; Visit Provider Internal Medicine
DX: E78.00 Pure hypercholesterolemia, unspecified (principal); D64.9 Anemia, unspecified
CPT/HCPCS: 36415; 80053; 80061; 85025

== ENCOUNTER 2025-05-25 08:11 | Emergency (ER) | payer MEDICARE, MEDICAID, SELFPAY ==
--- NOTE | 2025-05-25 | ECG_ITS ---
Test Reason : WEAK/DIZZY Blood Pressure : */* mmHG Vent. Rate : 82 BPM Atrial Rate : 82 BPM P-R Int : 132 ms QRS Dur : 86 ms QT Int : 356 ms P-R-T Axes : 20 55 52 degrees QTcB Int : 415 ms Normal sinus rhythm Normal ECG When compared with ECG of 10-Dec-2008 15:08, No significant changes seen Referred By: Cyndi Bustos Electronically Signed By: KAUR KO MD
--- NOTE | ~2025-05-25 | CT_ITS ---
CLINICAL HISTORY: dizziness since waking CT head without contrast Comparison: None Findings: No evidence of acute territorial infarct. There is patchy low density in the periventricular and subcortical white matter. Diffuse volume loss is noted. No hydrocephalus. No hemorrhage, mass effect, mass lesion or midline shift. No abnormal extra-axial fluid. No calvarial fracture. Paranasal sinuses and mastoid air cells are clear. Impression: No acute intracranial process. Chronic changes as detailed. This document has been electronically signed by: Christiano Pizarro MD on 05/25/2025 10:43:49
[2025-05-25 08:12] VITALS: BP 125/59; PULSE 87; RESP 17; TEMP 37; O2SAT 98; BMI 29.9
--- NOTE | 2025-05-25 08:22 | ED.GENADULT ---
HPI - General Adult General Chief complaint: General Medical Stated complaint: dizzy elbow pain Time Seen by Provider: 05/25/25 08:21 Source: patient, family (sister), RN notes reviewed and old records reviewed Mode of arrival: ambulatory Limitations: language barrier History of Present Illness ED Provider: Ruel FLEMING narrative: Patient is a 74-year-old Argentine speaking male with history of colon CA, recently finished chemo one month ago, HTN, GERD, anemia, DVT on Eliquis presenting to the ED with complaint of weakness and dizziness since this morning. Patient requesting sister to translate for him, declined hospital customer marketing intern. Sister states that when he stood up from bed this morning, he complained of bilateral will knee, elbow and neck pain as well as weakness and dizziness and was too weak to ambulate. Patient complains of associated nausea and chills. Denies vomiting or diarrhea. Denies recent fevers or cough. Denies any chest pain, palpitations. Denies urinary symptoms. MD complaint: weak, dizzy Related Data Previous Rx's ?Medication ?Instructions ?Recorded ondansetron 8 mg disintegrating 8 mg PO Q8H #60 tabs 02/10/24 tablet omeprazole 20 mg capsule,delayed 20 mg PO DAILY #90 caps 03/15/24 release docusate sodium 100 mg capsule 100 mg PO DAILY #30 caps 04/10/24 (Colace) sennosides 8.6 mg tablet (Senokot) 8.6 mg PO BID #60 tabs 04/23/24 psyllium husk 0.4 gram capsule 0.4 g PO BEDTIME PRN constipation 06/29/24 (Metamucil) #30 caps metoprolol succinate 50 mg 50 mg PO DAILY #90 tabs 08/31/24 tablet,extended release 24 hr apixaban 5 mg tablet (Eliquis) 5 mg PO BID #60 tabs 10/08/24 Allergies Allergy/AdvReac Type Severity Reaction Status Date / Time No Known Allergies (No Known Allergy Verified 05/25/25 08:18 Allergies*) Review of Systems Review of Systems: As per HPI Yes all other systems are reviewed and are negative Constitutional: Constitutional: Reports as per HPI Neurologic: Denies Abnormal speech present PMFSH Past Medical History Medical History GERD (gastroesophageal reflux disease) Hx of deep venous thrombosis Obesity (BMI 30-39.9) Essential hypertension Pure hypercholesterolemia Cataracts, bilateral Wound check, abscess Recurrent carcinoma of colon Adenocarcinoma of transverse colon Surgical History History of colectomy (12/22/23) S/P IVC filter History of partial colectomy Family History Family History Mother CVA (cerebral vascular accident) Brother Heart disease Social History Social History Household Members: Family Housing: House Do you presently have visiting nurse or other home services: No Patient Tobacco Use Status: Never used Tobacco Smoked in Last 30 Days: No e-Cigarette/Vaping Use: Never Used Use of substances other than those prescribed or required for medical reasons: No Advance Directives: No Advance Directives Information Provided: Yes Do you have a plan to hurt others: No Plan service: No Cognitive needs: No Hearing needs: No Vision needs: No Physical Exam ED Vital Signs: Vital Signs - 24 hr 05/25/25 08:12 05/25/25 08:31 Temperature 98.6 F Pulse Rate 87 82 Respiratory Rate 17 12 Blood Pressure 125/59 L 108/56 L Pulse Oximetry 98 98 Oxygen Delivery Method Room Air Room Air BMI result Body Mass Index 29.9 Vital signs have been reviewed and appear to be correct. Blood pressure normal. Heart rate normal. Respiratory rate normal. Temperature normal. Oxygen saturation normal. Const General: cooperative, healthy appearing and no acute distress Orientation/consciousness: oriented to person, oriented to place, oriented to time and patient oriented x3 Limitations: no limitations [facility] Head: Yes normocephalic and Yes atraumatic Ears: external ears normal General nose exam: Normal external nose present Face and sinus: Yes face symmetric Mouth: oropharynx normal and moist mucous membranes Throat: Yes uvula midline Eyes Pupils: Equal, round and reactive pupils present Neck Neck: Yes normal visual inspection, Yes full ROM, Yes no meningeal signs and Yes supple Resp Effort & Inspection: normal respiratory effort and able to speak in complete sentences Auscultation: clear to auscultation bilaterally Cardio Rate: regular rate Rhythm: regular rhythm Heart sounds: S1 normal heart sound present and S2 normal heart sound present GI Inspection: Yes scar (well healed scar to R side of abdomen) Palpation (GI): Soft to palpation and nontender Auscultation: normoactive bowel sounds General: Yes no CVA tenderness Back/Spine/Pelvis Back: no CVA tenderness Skin General skin exam: elasticity normal and turgor normal Neuro General: oriented to person, oriented to place, oriented to time, patient oriented x3, gait normal, tone normal, moves all extremities, Normal light touch and pain sensation, no meningeal signs, no focal motor deficits, CN's II-XI intact bilaterally and deep tendon reflexes 2+ bilaterally Cranial nerves: Yes Equal, round and reactive pupils present Cognition (Neuro): normal cognition Speech: No Abnormal speech present Motor exam (neuro): 5/5 motor strength present throughout, Pronator motor function not present, no tremor noted, no asterixis, Motor fasciculations not present, Normal motor muscle tone present throughout and Motor abnormalities not present Sensory Exam: Normal double simultaneous stimulation for sensation Coordination: [id number]-[id number] test normal, [id number] test normal and Romberg test negative Extrem General: Yes full ROM, Yes no pedal edema and Yes no calf tenderness Psych Mental Status: mental status grossly normal Affect: normal affect Thought process: Normal thought process present NIH Stroke Scale Internal: Initial- Upon Arrival Time: 08:35 Level of Consciousness: Alert Level of Consciousness Questions: Answers both questions correctly Level of Consciousness Commands: Performs both tasks correctly Best Gaze: Normal Visual: No visual loss Facial Palsy: Normal Motor Arm (Right): No drift Motor Arm (Left): No drift Motor Leg (Right): No drift Motor Leg (Left): No drift Limb Ataxia: Absent Sensory: Normal Best Language: No aphasia Dysarthia: Normal Extinction and Inattention: No abnormality Score: 0 Medications Administered Discontinued Medications Generic Name Dose Route Start Last Admin Trade Name Freq PRN Reason Stop Dose Admin Sodium Chloride 1,000 mls @ 999 mls/hr 05/25/25 09:45 05/25/25 10:24 Ns IV 05/25/25 10:45 999 mls/hr .Q1H1M ASCENCION Administration Medical Decision Making Medical Decision Making MDM Narrative: Patient is a 74-year-old Argentine speaking male with history of colon CA, recently finished chemo one month ago, HTN, GERD, anemia, DVT on Eliquis presenting to the ED with complaint of weakness and dizziness since this morning. On exam patient is awake, A+Ox3, VS WNL, afebrile, normal neurological exam without focal deficits, physical exam findings as above. Given reported symptoms and physical exam findings, initial differential includes but is not limited to viral illness, Covid, flu, tick borne illness, anemia, electrolyte abnormality. Unlikely TIA/CVA/ICH as patient is without any focal neurological deficits. Labs notable for no leukocytosis, chronic anemia, no significant electrolyte abnormalities, negative troponin. Viral swab positive for COVID. CT head notable for no evidence of ICH. My interpretation is in agreement with the radiologist's interpretation. Results discussed with patient and sister and all questions answered. Advised rest, adequate fluid intake, Tylenol and ibuprofen as needed for pain or fever. Follow up with primary care provider as needed. Return precautions discussed. Patient and sister verbalized understanding of and agreement with plan. Differential Diagnosis Differential Diagnoses: The differential diagnosis associated with the presentation includes as per [facility] Admission/Observation Consideration of admission/observation: Escalation of care including admission/observation considered Patient would have been admitted to the hospital had their clinical presentation warranted hospital admission. Lab Data [facility] Lab Attestation statement: I reviewed the patient's lab results. as per [facility] 05/25/25 08:51 05/25/25 08:51 Labs: Lab Results 05/25/25 Range/Units 08:51 WBC 4.8 (4.8-10.8) X10*3/uL RBC 4.64 (4.60-5.80) X10*6/uL Hgb 11.4 L (14.0-18.0) g/dl Hct 35.1 L (42.0-52.0) % MCV 75.6 L (80.0-98.0) fL MCH 24.6 L (27.0-33.0) pg MCHC 32.5 (31.0-36.0) g/dl RDW 16.5 H (11.0-16.0) % Plt Count 172 (160-400) X10*3/uL MPV 10.0 (9.4-12.4) fL Immature Gran % (Auto) 0.4 (0.0-0.4) % Neut % (Auto) 70.7 (45-73) % Lymph % (Auto) 10.4 L (20-40) % [place] % (Auto) 18.3 H (2-11) % Eos % (Auto) 0.0 (0-4) % Baso % (Auto) 0.2 (0-2) % Lymph # (Auto) 0.5 L (1.2-4.9) X10*3/uL [place] # (Auto) 0.9 (0.1-1.2) X10*3/uL Eos # (Auto) 0.0 (0.0-0.4) X10*3/uL Baso # (Auto) 0.0 (0.0-0.2) X10*3/uL Abs Immat Gran (auto) 0.02 (0.00-0.03) X10*3/uL Absolute Neuts (auto) 3.4 (2.0-8.3) x10*3/uL Absolute Nucleated RBC 0.000 (0.0-0.012) X10*3/uL Nucleated RBC % (auto) 0.0 (0.0-0.2) /100WBC PT 15.0 H (10.9-12.4) SEC INR 1.3 H (0.9-1.1) Sodium 134 L (135-145) mmol/L Potassium 3.9 (3.3-5.1) mmol/L Chloride 102 (96-108) mmol/L Carbon Dioxide 25 (22-29) mmol/L Anion Gap 11 L (12-20) BUN 18 H (9-16) mg/dL Creatinine 1.10 (0.5-1.4) mg/dL Estim Creat Clear Calc 61.7 Estimated GFR > 60 Random Glucose 113 (60-115) mg/dL Calcium 8.0 L D (8.4-10.2) mg/dL Magnesium 1.9 (1.6-2.6) mg/dL Total Bilirubin 1.0 (0.0-1.0) mg/dL AST 36 (5-37) U/L ALT 23 (0-40) U/L Alkaline Phosphatase 84 (39-117) U/L Troponin I High Sens 4.3 (<3.5-35.0) ng/L Total Protein 6.6 (6.5-8.0) g/dL Albumin 3.9 (3.5-5.0) g/dL Influenza Type A (PCR) NEGATIVE (Negative) Influenza Type B (PCR) NEGATIVE (Negative) RSV RNA Qual (PCR) NEGATIVE (Negative) SARS-CoV-2 RNA (RT-PCR) POSITIVE A (Negative) Independent Interpretation I performed an independent interpretation of an: EKG (EKG shows normal sinus rhythm, rate 82 beats per minute, normal NE interval and QTC) and CT Scan Interpretation: CT head is without evidence of ICH Radiology Impression Discussion of test interpretation with radiology: I have reviewed the radiologist's reading. Radiologist Impression: CT head without contrast Comparison: None Findings: No evidence of acute territorial infarct. There is patchy low density in the periventricular and subcortical white matter. Diffuse volume loss is noted. No hydrocephalus. No hemorrhage, mass effect, mass lesion or midline shift. No abnormal extra-axial fluid. No calvarial fracture. Paranasal sinuses and mastoid air cells are clear. Impression: No acute intracranial process. Chronic changes as detailed. Independent Historian Clinical information obtained from an independent historian. History obtained from or confirmed by: Other (sister) External Record Review External record reviewed: Inpatient record, Office record and Outpatient record Discharge Plan Discharge Clinical Impression: COVID-19 Patient Disposition: Home, Self-Care Instructions: Droplet Precautions (ED), COVID-19 (Coronavirus Disease 2019) (ED), Face Coverings (Masks) and COVID-19 (ED), How to Recover from COVID-19 at Home (ED), Social Distancing Guidelines for COVID-19 (ED) Additional Instructions: You were evaluated in the emergency department today for weakness and joint pain. Your COVID test was resulted as positive. You should continue to isolate at home for another 4 days. You should continue to wear mask for 5 days after that. Be sure to get plenty of rest, plenty of fluids. You can take 650 mg of Tylenol or 600 mg ibuprofen every 6 hours as needed for fever or discomfort. Return to the emergency department with worsening shortness of breath, chest pain, fever that does not improve with Tylenol or ibuprofen, persistent vomiting, or any other concerning symptoms. You should follow-up with your primary care provider. Prescriptions: No Action ondansetron 8 mg Tablet,Disintegrating 8 mg PO Q8H Qty: 60 4RF omeprazole 20 mg Capsule,Delayed Release(Dr/Ec) 20 mg PO DAILY Qty: 90 4RF docusate sodium [Colace] 100 mg Capsule 100 mg PO DAILY Qty: 30 1RF sennosides [Senokot] 8.6 mg Tablet 8.6 mg PO BID Qty: 60 4RF Eliquis 5 mg Tablet 5 mg PO BID Qty: 60 5RF psyllium husk [Metamucil] 0.4 gram capsule 0.4 g PO BEDTIME PRN (Reason: constipation) Qty: 30 0RF metoprolol succinate 50 mg tablet extended release 24 hr 50 mg PO DAILY Qty: 90 2RF Print Language: Argentine
[2025-05-25 08:31] VITALS: BP 108/56; PULSE 82; RESP 12; O2SAT 98
--- NOTE | 2025-05-25 08:39 | PC.NURSE ---
Addendum entered by Lindsey Allen RN 05/25/25 09:34: Patient alert and oriented, presents with weakness with assoc nausea. Denies any pain. Placed on monitor car operator and NSR noted. Lungs clear bilat. Respirations even and non-labored. Abdomen soft, non-tender with positive bowel sounds. Positive pedal pulses with no edema. Original Note: PMH: Adenocarcinoma of transverse colon: Moderately differentiated adenocarcinoma 8.5 CM invading through the muscularis propria into the pericolonic adipose tissue. 0 out of 6 lymph nodes, circumferential margin was involved by carcinoma. No venous or lymphatic invasion. THERAPY: 1. status post 6 cycles of FOLFOX-based chemotherapy completed June 19, 2007. 2. Surveillance colonoscopy 11/17/2016 revealed tubular adenomas.
[2025-05-25 08:57] LABS: MANUAL DIFF FLAG NO
[2025-05-25 09:01] LABS: Hematocrit 35.1 % (42.0-52.0); Hemoglobin 11.4 g/dl (14.0-18.0); Imm Gran Abs Auto 0.02 X10*3/uL (0.00-0.03); Imm Gran Pct Auto 0.4 % (0.0-0.4); Lymphocytes Absolute Auto 0.5 X10*3/uL (1.2-4.9); Mean Corpuscular HGB Conc 32.5 g/dl (31.0-36.0); Mean Corpuscular Hemoglobin 24.6 pg (27.0-33.0); Mean Corpuscular Volume 75.6 fL (80.0-98.0); NRBC Abs Auto 0.000 X10*3/uL (0.0-0.012); NRBC Pct Auto 0.0 /100WBC (0.0-0.2); Platelet Count 172 X10*3/uL (160-400); Red Blood Count 4.64 X10*6/uL (4.60-5.80); White Blood Count 4.8 X10*3/uL (4.8-10.8)
[2025-05-25 09:04] LABS: INTERNATIONAL NORM RATIO 1.3 (0.9-1.1); Prothrombin Time 15.0 SEC (10.9-12.4)
[2025-05-25 09:14] LABS: Alanine Aminotransferase 23 U/L (0-40); Albumin Level 3.9 g/dL (3.5-5.0); Alkaline Phosphatase 84 U/L (39-117); Anion Gap 11 (12-20); Aspartate Amino Transferase 36 U/L (5-37); Blood Urea Nitrogen 18 mg/dL (9-16); Calcium 8.0 mg/dL (8.4-10.2); Carbon Dioxide 25 mmol/L (22-29); Chloride 102 mmol/L (96-108); Creatinine Clr Calc Pharmacy 61.7; Estimated Glomerular Filt Rate > 60; Magnesium 1.9 mg/dL (1.6-2.6); Potassium 3.9 mmol/L (3.3-5.1); Sodium 134 mmol/L (135-145); Total Protein 6.6 g/dL (6.5-8.0)
[2025-05-25 09:23] LABS: Troponin-I High Sensitivity 4.3 ng/L (<3.5-35.0)
[2025-05-25 09:53] LABS: Resp Syncy Virus RNA Qual PCR NEGATIVE (Negative); SARS COV2 PCR INHOUSE POSITIVE (Negative)
[2025-05-25 11:10] VITALS: BP 119/57; PULSE 77; RESP 13; TEMP 37.1; O2SAT 100
[2025-05-25 11:24] VITALS: BP 119/57; PULSE 77; RESP 13; TEMP 37.1; O2SAT 100
[2025-05-28 00:13] LABS: A. Phagocytphilium DNA,RT-PCR NOT DETECTED (NOT DETECTED); Babesia Microti DNA, RT-PCR NOT DETECTED (NOT DETECTED); Borrelia Miyamotoi,DNA RT-PCR NOT DETECTED (NOT DETECTED); E.Chaffeensis DNA RT-PCR NOT DETECTED (NOT DETECTED); Lyme(Borrelia ssp)DNA RT-PCR NOT DETECTED (NOT DETECTED)
== END 2025-05-25 11:24 | disposition home or self-care (01) ==
PROVIDERS: Registered Nurse Emergency; Emergency Provider Emergency Medicine Emergency Medical Services; PCP Internal Medicine
DX: U07.1 COVID-19 (principal); I10 Essential (primary) hypertension; K21.9 Gastro-esophageal reflux disease without esophagitis; D64.9 Anemia, unspecified; Z86.718 Personal history of other venous thrombosis and embolism; Z79.01 Long term (current) use of anticoagulants; M25.562 Pain in left knee; M25.561 Pain in right knee; M25.522 Pain in left elbow; M25.521 Pain in right elbow; M54.2 Cervicalgia; R11.0 Nausea; R68.83 Chills (without fever); E66.9 Obesity, unspecified; Z68.29 Body mass index [BMI] 29.0-29.9, adult; E78.00 Pure hypercholesterolemia, unspecified; H26.9 Unspecified cataract; C18.9 Malignant neoplasm of colon, unspecified
CPT/HCPCS: 36415; 70450; 80053; 83735; 84484; 85025; 85610; 87468; 87469; 87478; 87484; 87637; 87798; 93005; 96360; 99285

== ENCOUNTER → 2025-05-25 08:24 | Outpatient (BNV) | payer MEDICARE, MEDICAID, SELFPAY | PROVIDERS: Emergency Provider Emergency Medicine Emergency Medical Services; PCP Internal Medicine; Visit Provider Internal Medicine Cardiovascular Disease | DX: R42 Dizziness and giddiness (principal); R53.1 Weakness | CPT/HCPCS: 93010 ==

== ENCOUNTER → 2025-05-25 08:36 | Outpatient (BNV) | payer MEDICARE, MEDICAID, SELFPAY | PROVIDERS: Emergency Provider Emergency Medicine Emergency Medical Services; PCP Internal Medicine; Visit Provider Radiology Vascular & Interventional Radiology | DX: R42 Dizziness and giddiness (principal) | CPT/HCPCS: 70450 ==

== ENCOUNTER 2025-07-02 08:48 | Outpatient (AMB) | payer MEDICARE, MEDICAID, SELFPAY ==
--- NOTE | 2025-07-02 08:57 | MHC.PC.OV ---
Vital Signs 07/02/25 08:58 Height 5 ft 6 in Weight 185 lb 2 oz BMI 29.9 BP 114/78 Blood Pressure Location Lt brachial Position Sitting Pulse 90 Pulse Source Pulse Oximeter Pulse Oximetry (%) 97 Oxygen Delivery Method Room Air Intake Visit Reasons: Annual Exam Geological Aide Required: No Accompanied by: Self / Same As Patient Allergies No Known Allergies (No Known Allergies*) Allergy (Verified 07/02/25 09:21) Medication List - Last Reconciled 07/02/25 by Nelson Estevez MD apixaban (Eliquis) 5 mg PO BID docusate sodium (Colace) 100 mg PO DAILY metoprolol succinate ER 50 mg PO DAILY omeprazole 20 mg PO DAILY ondansetron 8 mg PO Q8H psyllium husk (Metamucil) 0.4 grams PO BEDTIME PRN sennosides (Senokot) 8.6 mg PO BID Tobacco use date assessed: 07/02/25 Fall risk assessment: No Falls in past year Last assessed Fall Risk: 07/02/25 Dental Screening Dental Screen Date: 07/02/25 Did you have a dental visit in the last 12 months?: Yes Did you have a dental problem in the last 6 months where you did not have access to dental care?: No Was dental information given to patient?: Patient has dentist HPI Annual Exam HPI Details Patient comes in today for his annual physical examination States that he currently feels okay He went to the ER last month for recurrent dizziness and multiple joint pains and was found to have COVID-19 Patient states that symptoms from last month have all resolved completely at present He denies any headaches or dizziness Denies any chest pains, no SOB No nausea/vomiting, no abdominal pain No change in bowel habits noted He denies any acute urinary symptoms He continues to follow up with GI and oncology regularly for colon cancer surveillance He will be going for repeat venous doppler of his right upper extremity later this week for follow up of his right arm DVT Needs his Metoprolol Rx refilled today He was not able to get his previously ordered labs done prior to his appointment today [facility] Medical History GERD (gastroesophageal reflux disease) Hx of deep venous thrombosis Obesity (BMI 30-39.9) Essential hypertension Pure hypercholesterolemia Cataracts, bilateral Wound check, abscess Recurrent carcinoma of colon Adenocarcinoma of transverse colon Surgical History History of colectomy (12/22/23) S/P IVC filter History of partial colectomy Family History Mother CVA (cerebral vascular accident) Brother Heart disease Social History Household Members: Family Housing: House Do you presently have visiting nurse or other home services: No Patient Tobacco Use Status: Never used Tobacco e-Cigarette/Vaping Use: Never Used service: No Cognitive needs: No Hearing needs: No Vision needs: No Questionnaire PHQ-9 Over the last 2 weeks, how often have you been bothered by any of the following problems? 1. Little interest or pleasure in doing things: several days 2. Feeling down, depressed, or hopeless: several days 3. Trouble falling or staying asleep, or sleeping too much: not at all 4. Feeling tired or having little energy: several days 5. Poor appetite or overeating: not at all 6. Feeling bad about yourself - or that you are a failure or have let yourself or your family down: several days 7. Trouble concentrating on things, such as reading the newspaper or watching television: not at all 8. Moving or speaking so slowly that other people could have noticed. Or the opposite - being so fidgety or restless that you have been moving around a lot more than usual: not at all 9. Thoughts that you would be better off or of hurting yourself in some way: not at all Total score: 4 Depression Screening Interpretation: Positive Depression Screening Follow-up: Follow-up Visit Requested Depression Screening Done: Yes [id number] - PHQ-9 Billing: Yes Source: Developed by Drs. Kevin Villaseñor, Gloria Collazo, Yemi Walsh and colleagues, with an educational grace from [employer]. Thrive Questionnaire Date Thrive assessed: 07/02/25 I am a: Patient What is your living situation today?: I have a steady place to live Within the past 12 months, did the food you bought not last and you didn't have the money to get more?: Never true Within the past 12 months, did you worry whether your food would run out before you got money to buy more?: Never true Do you have trouble paying for medicines?: No Do you have trouble getting transportation to medical appointments?: No Do you have trouble paying your heating and electricity bill?: No Do you have trouble taking care of your child, family member or friend?: No Do you have trouble with day-to-day activities such as bathing, preparing meals, shopping, managing finances, etc.?: No Are you currently unemployed and looking for a job?: No Are you interested in more education?: No Please select the resources that you would like help with: None Currently or been in a relationship where the following occur: No concerns reported THRIVE Score: 0 AUDIT C Alcohol Use Questionnaire (AUDIT-C) 1. How often do you have a drink containing alcohol?: Never 3. How often do you have six or more drinks on one occasion?: Never Total Score: 0 Score Reviewed/Action Taken: Yes COURTNEY-7 AMB Questionnaire COURTNEY-7 Date COURTNEY - 7 assessed: 07/02/25 Feeling nervous, anxious, or on edge: 1 = Several days Not being able to stop or control worryin = Several days Worrying too much about different things: 1 = Several days Trouble relaxin = Not at all Being so restless that it is hard to sit still: 1 = Several days Becoming easily annoyed or irritable: 1 = Several days Feeling afraid as if something awful might happen: 0 = Not at all Total COURTNEY-7 score (0-4 normal; 5-9 mild; 10-14 moderate; 15-21 severe): 5 Source: Developed by Drs. Kevin Villaseñor, Gloria Collazo, Yemi Walsh and colleagues, with an educational grace from [employer]. Review of Systems Const Denies chills, Denies fatigue, Denies fever(s), Denies headache(s), Denies malaise and Denies weakness Eyes Denies blurry vision, Denies change in vision, Denies irritation and Denies itchy eyes ENT Denies dysphagia, Denies dizziness, Denies otalgia, Denies headache(s), Denies nasal congestion, Denies neck pain, Denies odynophagia and Denies sore throat Card Denies chest pain, Denies rapid heart rate, Denies irregular heart rhythm, Denies palpitations and Denies dyspnea Resp Denies chest congestion, Denies cough, Denies dyspnea and Denies wheezing GI Denies abdominal pain, Denies bloating, Denies constipation, Denies dysphagia, Denies heartburn, Denies diarrhea, Denies nausea, Denies odynophagia and Denies vomiting Denies hematuria, Denies difficulty urinating, Denies dysuria, Denies urinary frequency and Denies urinary urgency Musc Denies back pain, Denies arthralgias, Denies joint swelling, Denies muscle weakness and Denies neck pain Skin/Breast Denies change in pigmentation, Denies lesions, Denies rash and Denies unusual bruising Neuro Denies dizziness, Denies headache(s), Denies paresthesias and Denies weakness Endo Denies fatigue and Denies palpitations Aller/Immun Denies itchy eyes and Denies wheezing Physical exam (Primary Care) Vital Signs: Last Vital Signs Pulse 90 07/02/25 08:58 BP 114/78 07/02/25 08:58 Pulse Ox 97 07/02/25 08:58 Oxygen Delivery Method Room Air 07/02/25 08:58 BMI result Body Mass Index 29.9 Tobacco/Smoking Status: Tobacco use Status Tobacco use date assessed 07/02/25 07/02/25 09:02 Patient Tobacco Use Status Never used Tobacco 07/02/25 09:02 e-Cigarette/Vaping Use Never Used 07/02/25 09:02 PHQ-9: PHQ-9 Score PHQ-9: Total score 4 07/02/25 09:02 Depression Screening Interpretation: Positive Depression Screening Follow-up: Follow-up Visit Requested Thrive Assessment: Date of Thrive Assessment Date Thrive assessed 07/02/25 07/02/25 09:02 Currently or been in a relationship where the following occur: No concerns reported Const General: no acute distress, alert and awake Orientation/consciousness: patient oriented x3 HENMT Head: Yes normocephalic and Yes atraumatic Ears: external ears normal, TM's normal bilaterally and EAC's normal General nose exam: No nasal discharge present Face and sinus: Yes normal facial exam and Yes sinuses nontender Teeth and gingiva: dentition normal Throat: Yes posterior oropharynx normal and Yes tonsils normal (no TP congestion) Eyes Eyelids: Yes eyelids normal Conjunctivae: conjunctivae normal Pupils: Equal, round and reactive pupils present EOM: EOMs intact bilaterally Neck Neck: Yes no lymphadenopathy and Yes supple Thyroid: Thyroid normal Resp Auscultation: clear to auscultation bilaterally, no rales and no wheezes Cardio Rate: regular rate Rhythm: regular rhythm Heart sounds: no murmurs GI Palpation (GI): Soft to palpation, nontender and No hepatosplenomegaly present Auscultation: normal bowel sounds General: Yes no CVA tenderness Back/Spine/Pelvis Back: no CVA tenderness Thoracic/Lumbar Spine: thoracic and lumbar spine normal to inspection Skin Lesions: no lesions Rashes: no rashes Neuro General: patient oriented x3, moves all extremities, no focal motor deficits and CN's II-XI intact bilaterally Cranial nerves: Yes Equal, round and reactive pupils present Cognition (Neuro): normal cognition Gait exam (Neuro): Normal gait present Extrem General: Yes no clubbing, cyanosis or edema Coding Level of Care Code Est Pt Prev Care >65y(67224) Diagnoses Annual physical exam Z00.00 Recurrent carcinoma of colon C18.9 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 I82.721 Affected thrombotic vein of extremity: brachial Chronicity: chronic Pure hypercholesterolemia E78.00 Essential hypertension I10 Gastroesophageal reflux disease without esophagitis K21.9 Esophagitis presence: without esophagitis Obesity (BMI 30-39.9) E66.9 Additional Codes PHQ-9 - 56765 - PHQ-9 Billing: Yes ([id number]) Assessment & Plan Assessment & Plan (1) Annual physical exam: Code(s): Z00.00 - Encounter for general adult medical examination without abnormal findings Category: Medical Plan: Patient is instructed to get his previously ordered labs done [place] to complete his exam today He will continue to follow up with GI and with oncology for continuing surveillance of his colon cancer recurrence - he is due for repeat colonoscopy and will be seeing GI for consultation regarding this on 08/26/2025 (2) Recurrent carcinoma of colon: Comment: diagnosed in 2023 - s/p transverse colectomy in 11/2023, followed by adjuvant chemotherapy from 02/13/2024 through 04/23/2024 Code(s): C18.9 - Malignant neoplasm of colon, unspecified Category: Medical Plan: Patient completed his adjuvant chemotherapy for his recurrent adenocarcinoma of the colon with m-FOLFOX on 04/23/2024 He had a follow up CT of the chest and abdomen/pelvis done earlier this year, which came out negative for recurrent or metastatic disease Per oncology, he is now due for repeat colonoscopy and will be seeing GI for consultation regarding this on 08/26/2025 (3) Deep vein thrombosis of right upper extremity: Code(s): I82.621 - Acute embolism and thrombosis of deep veins of right upper extremity Category: Medical Qualifiers: Affected thrombotic vein of extremity: brachial Chronicity: chronic Qualified Code(s): I82.721 - Chronic embolism and thrombosis of deep veins of right upper extremity Plan: PET scan done last year on 01/29/24 revealed findings that raised concern for a right upper extremity DVT, especially since he had a Port-A-Cath placed in his right upper extremity at the time Venous doppler of the right upper extremity done on 02/08/24 revealed (+) possible partial thrombus present in the proximal right brachial vein. The venous catheter is partially visualized in the right subclavian vein Patient was then started on Eliquis 5 mg BID, which he is still on at present He had a follow up venous doppler done in September 2024, which revealed (+) stable mild wall adherent chronic thrombus in the right brachial vein with no acute deep venous thrombosis He had a repeat right upper extremity venous doppler done again on 01/09/2025 - doppler revealed the presence of an old/chronic thrombus in the right brachial vein that appears stable with no acute deep venous thrombosis otherwise in the right upper extremity He is scheduled now for repeat venous doppler of the RUE in a few days on 07/05/2025 (4) Pure hypercholesterolemia: Code(s): E78.00 - Pure hypercholesterolemia, unspecified Category: Medical Plan: Reinforced low cholesterol diet His cholesterol have improved significantly from previous when they were last checked a few months ago on March 07, 2025, with his total cholesterol at 173 mg/dl and LDL cholesterol at 107 mg/dl Reinforced low cholesterol diet Will recheck his labs and fasting lipids again in 3 months for follow up (5) Essential hypertension: Code(s): I10 - Essential (primary) hypertension Category: Medical Plan: Reinforced low sodium diet - goal is systolic BP of 120 to 130 mm or less Continue Metoprolol ER 50 mg QD - Rx refilled (6) GERD (gastroesophageal reflux disease): Code(s): K21.9 - Gastro-esophageal reflux disease without esophagitis Category: Medical Qualifiers: Esophagitis presence: without esophagitis Qualified Code(s): K21.9 - Gastro-esophageal reflux disease without esophagitis Plan: Dietary restrictions reinforced Continue Omeprazole 20 mg QD (7) Obesity (BMI 30-39.9): Code(s): E66.9 - Obesity, unspecified Category: Medical Plan: Reinforced diet/exercise as tolerated/lose weight Plan Follow up in 3 months Orders: Orders Complete Blood Count Auto Diff 3 Months D64.9 - Anemia, unspecified Comprehensive [place]. Panel Fast 3 Months E78.00 - Pure hypercholesterolemia, unspecified Lipid Panel 3 Months E78.00 - Pure hypercholesterolemia, unspecified TSH reflex Free T4 Today E78.00 - Pure hypercholesterolemia, unspecified, Z00.00 - Encounter for general adult medical examination without abnormal findings UA CC w/rflx Micro + Cult Today R30.0 - Dysuria, Z00.00 - Encounter for general adult medical examination without abnormal findings Vitamin D 25-OH Total Today E55.9 - Vitamin D deficiency, unspecified, Z00.00 - Encounter for general adult medical examination without abnormal findings Prostate Specific Antigen Today N40.0 - Benign prostatic hyperplasia without lower urinary tract symptoms, Z00.00 - Encounter for general adult medical examination without abnormal findings Medications: Changed From metoprolol succinate ER 50 mg PO DAILY 90 tabs 2RF To metoprolol succinate ER 50 mg PO DAILY 90 tabs 3RF 90 days
[2025-07-02 08:58] VITALS: BP 114/78; PULSE 90; O2SAT 97; BMI 29.9
== END 2025-07-02 09:39 | disposition home or self-care (01) ==
LOC: HO.HMCH 08:49
PROVIDERS: PCP Internal Medicine; Visit Provider Internal Medicine
DX: Z00.00 Encounter for general adult medical examination without abnormal findings (principal); C18.9 Malignant neoplasm of colon, unspecified; I82.721 Chronic embolism and thrombosis of deep veins of right upper extremity; Z68.29 Body mass index [BMI] 29.0-29.9, adult; E66.9 Obesity, unspecified; E78.00 Pure hypercholesterolemia, unspecified; I10 Essential (primary) hypertension; K21.9 Gastro-esophageal reflux disease without esophagitis

== ENCOUNTER → 2025-07-02 08:48 | Outpatient (BNVA) | payer MEDICARE, MEDICAID, SELFPAY | PROVIDERS: PCP Internal Medicine; Visit Provider Internal Medicine | DX: Z00.00 Encounter for general adult medical examination without abnormal findings (principal); C18.9 Malignant neoplasm of colon, unspecified; I82.721 Chronic embolism and thrombosis of deep veins of right upper extremity; E78.00 Pure hypercholesterolemia, unspecified; I10 Essential (primary) hypertension; K21.9 Gastro-esophageal reflux disease without esophagitis; E66.9 Obesity, unspecified; Z68.29 Body mass index [BMI] 29.0-29.9, adult | CPT/HCPCS: 96127; 99397 ==

== ENCOUNTER 2025-07-03 07:24 | Outpatient (REF) | payer MEDICARE, MEDICAID, SELFPAY ==
[2025-07-03 07:40] LABS: MANUAL DIFF FLAG NO
[2025-07-03 07:52] LABS: Hematocrit 40.8 % (42.0-52.0); Hemoglobin 12.5 g/dl (14.0-18.0); Imm Gran Abs Auto 0.02 X10*3/uL (0.00-0.03); Imm Gran Pct Auto 0.3 % (0.0-0.4); Lymphocytes Absolute Auto 2.1 X10*3/uL (1.2-4.9); Mean Corpuscular HGB Conc 30.6 g/dl (31.0-36.0); Mean Corpuscular Hemoglobin 23.9 pg (27.0-33.0); Mean Corpuscular Volume 78.2 fL (80.0-98.0); NRBC Abs Auto 0.000 X10*3/uL (0.0-0.012); NRBC Pct Auto 0.0 /100WBC (0.0-0.2); Platelet Count 253 X10*3/uL (160-400); Red Blood Count 5.22 X10*6/uL (4.60-5.80); White Blood Count 6.6 X10*3/uL (4.8-10.8)
[2025-07-03 08:15] LABS: Appearance Urine Clear; Glucose Urine UA Negative (Negative); PH 7.0 (5.0-9.0); Specific Gravity - Urine <= 1.005 (1.005-1.025)
[2025-07-03 08:20] LABS: Alanine Aminotransferase 18 U/L (0-40); Albumin Level 4.3 g/dL (3.5-5.0); Alkaline Phosphatase 102 U/L (39-117); Anion Gap 13 (12-20); Aspartate Amino Transferase 27 U/L (5-37); Blood Urea Nitrogen 15 mg/dL (9-16); Calcium 8.9 mg/dL (8.4-10.2); Carbon Dioxide 28 mmol/L (22-29); Chloride 105 mmol/L (96-108); Cholesterol 188 mg/dL (<200); Estimated Glomerular Filt Rate > 60; HDL Cholesterol 41 mg/dL (>40); Potassium 4.5 mmol/L (3.3-5.1); Sodium 141 mmol/L (135-145); Total Protein 7.6 g/dL (6.5-8.0); Triglycerides 103 mg/dL (<150)
[2025-07-03 08:34] LABS: Prostate Specific Antigen 0.85 ng/mL (<0.05-4.0)
== END 2025-07-03 07:25 | disposition home or self-care (01) ==
LOC: HO.LAB 07:24
PROVIDERS: Visit Provider Internal Medicine
DX: Z00.00 Encounter for general adult medical examination without abnormal findings (principal); D64.9 Anemia, unspecified; E78.00 Pure hypercholesterolemia, unspecified; N40.0 Benign prostatic hyperplasia without lower urinary tract symptoms; R30.0 Dysuria; E55.9 Vitamin D deficiency, unspecified; Z12.5 Encounter for screening for malignant neoplasm of prostate
CPT/HCPCS: 36415; 80053; 80061; 81003; 82306; 84153; 84443; 85025

== ENCOUNTER 2025-07-05 13:16 | Outpatient (REF) | payer MEDICARE, MEDICAID, SELFPAY ==
--- NOTE | ~2025-07-05 | US_ITS ---
EXAMINATION: US TRIPLEX UPPER EXTREMITY, RIGHT CLINICAL INFORMATION: History of DVT. COMPARISON: January 09, 2025 TECHNIQUE: Color-flow triplex imaging with spectral analysis and compression Doppler was performed on the right upper extremity. FINDINGS: The right internal jugular, subclavian, and axillary veins are patent with normal phasic flow and augmentation. The imaged segment of the right brachiocephalic vein is patent. Spectral doppler waveforms are normal. The brachial, basilic, cephalic, radial, and ulnar veins are patent and compressible. US/US venous duplex UE RT IMPRESSION: No acute deep venous thrombosis interrogated veins, right upper extremity. Negative for DVT. Electronically signed by: Mike Vizcaino MD 07/05/2025 02:06 PM EDT
== END 2025-07-05 13:17 | disposition home or self-care (01) ==
LOC: HO.US 13:16
PROVIDERS: PCP Internal Medicine; Visit Provider Internal Medicine Medical Oncology
DX: I82.621 Acute embolism and thrombosis of deep veins of right upper extremity (principal)
CPT/HCPCS: 93971

== ENCOUNTER → 2025-07-05 13:18 | Outpatient (BNV) | payer MEDICARE, MEDICAID, SELFPAY | PROVIDERS: PCP Internal Medicine; Visit Provider Radiology Diagnostic Radiology | DX: Z86.718 Personal history of other venous thrombosis and embolism (principal) | CPT/HCPCS: 93971 ==

== ENCOUNTER 2025-08-14 06:54 | Outpatient (REF) | payer MEDICARE, MEDICAID, SELFPAY ==
[2025-08-14 07:04] LABS: MANUAL DIFF FLAG NO
[2025-08-14 07:48] LABS: Hematocrit 40.0 % (42.0-52.0); Hemoglobin 12.4 g/dl (14.0-18.0); Imm Gran Abs Auto 0.03 X10*3/uL (0.00-0.03); Imm Gran Pct Auto 0.4 % (0.0-0.4); Lymphocytes Absolute Auto 2.5 X10*3/uL (1.2-4.9); Mean Corpuscular HGB Conc 31.0 g/dl (31.0-36.0); Mean Corpuscular Hemoglobin 24.2 pg (27.0-33.0); Mean Corpuscular Volume 78.1 fL (80.0-98.0); NRBC Abs Auto 0.000 X10*3/uL (0.0-0.012); NRBC Pct Auto 0.0 /100WBC (0.0-0.2); Platelet Count 238 X10*3/uL (160-400); Red Blood Count 5.12 X10*6/uL (4.60-5.80); White Blood Count 6.9 X10*3/uL (4.8-10.8)
[2025-08-14 08:26] LABS: Alanine Aminotransferase 21 U/L (0-40); Albumin Level 4.5 g/dL (3.5-5.0); Alkaline Phosphatase 96 U/L (39-117); Anion Gap 11 (12-20); Aspartate Amino Transferase 25 U/L (5-37); Blood Urea Nitrogen 16 mg/dL (9-16); Calcium 9.0 mg/dL (8.4-10.2); Carbon Dioxide 28 mmol/L (22-29); Chloride 107 mmol/L (96-108); Cholesterol 198 mg/dL (<200); Estimated Glomerular Filt Rate > 60; HDL Cholesterol 43 mg/dL (>40); Potassium 4.1 mmol/L (3.3-5.1); Sodium 142 mmol/L (135-145); Total Protein 7.6 g/dL (6.5-8.0); Triglycerides 120 mg/dL (<150)
== END 2025-08-14 06:55 | disposition home or self-care (01) ==
LOC: HO.LAB 06:54
PROVIDERS: PCP Internal Medicine; Visit Provider Internal Medicine
DX: E78.00 Pure hypercholesterolemia, unspecified (principal); D64.9 Anemia, unspecified
CPT/HCPCS: 36415; 80053; 80061; 85025

== ENCOUNTER 2025-08-26 09:29 | Outpatient (AMB) | payer MEDICARE, MEDICAID, SELFPAY ==
--- NOTE | 2025-08-26 09:46 | A.OFFVIS_ITS ---
Vital Signs 08/26/25 09:49 Height 5 ft 6 in Weight 186 lb BMI 30.0 BP 142/73 H Blood Pressure Location Lt brachial Position Sitting Pulse 87 Intake Visit Reasons: ED COMPLEX r/s 06/03/25 Intake Note: Arron presents in the office as a ED follow up. CC: Ramiro wants him to have a colonoscopy. Allergies No Known Allergies (No Known Allergies*) Allergy (Verified 08/26/25 09:48) HPI HPI ED COMPLEX r/s 06/03/25: Details: 74 years old man with past medical history significant for colon cancer status post resection (s/p colostomy bag --> reanastomosis s/p chemotherapy in 2005) and GERD who I am seeing for f/u for colon cancer ( I saw him in patient 2023) RECAP: HE had CRC intially 2005 then came back 2023 He had surgery with chemo both times genetic markers checked - preserved --some heterogenity though INTERIM: he denies any acute problems no abdominal symptoms EXAM: GENERAL: The patient is well developed and nontoxic. VITAL SIGNS:see workflow HEENT: Nonicteric sclerae, PERRLA, EOMI. Oropharynx clear. Moist mucous membranes. Conjunctivae appear well perfused. No thyroid mass. CHEST: Chest wall is nontender. HEART: Regular rate and rhythm without murmurs. LUNGS: Clear to auscultation bilaterally. ABDOMEN: Soft, positive bowel sounds, nontender, no organomegaly.no flank tenderness--lap scar noted SKIN: No rash, no excessive bruising, petechiae, or purpura. NEUROLOGIC: Cranial nerves II-XII intact without motor/sensory deficit. Psych: normal affect A/P: 1/ CRC with recurrence now in remission PLAN: 1/ repeat colo with suprep --shoudl prob get yearly colonoscopy [facility] Medical History GERD (gastroesophageal reflux disease) Hx of deep venous thrombosis Obesity (BMI 30-39.9) Essential hypertension Pure hypercholesterolemia Cataracts, bilateral Wound check, abscess Recurrent carcinoma of colon Adenocarcinoma of transverse colon Surgical History History of colectomy (12/22/23) S/P IVC filter History of partial colectomy Family History Mother CVA (cerebral vascular accident) Brother Heart disease Social History Household Members: Family Housing: House Do you presently have visiting nurse or other home services: No Patient Tobacco Use Status: Never used Tobacco e-Cigarette/Vaping Use: Never Used service: No Cognitive needs: No Hearing needs: No Vision needs: No Physical Exam Vital Signs: Last Vital Signs Pulse 87 08/26/25 09:49 BP 142/73 H 08/26/25 09:49 BMI result Body Mass Index 30.0 Assessment & Plan Assessment & Plan (1) Status post colon resection: Code(s): Z90.49 - Acquired absence of other specified parts of digestive tract Category: Medical Plan: as above Medications: Discontinued apixaban (Eliquis) Discontinued Reason: Patient no longer taking 5 mg PO BID 60 tabs 5RF Coding Level of Care Code Est Pt Level 3 (74815) Diagnoses Status post colon resection Z90.49
[2025-08-26 09:49] VITALS: BP 142/73; PULSE 87
== END 2025-08-26 12:24 | disposition home or self-care (01) ==
LOC: HO.HGI 09:30
PROVIDERS: PCP Internal Medicine; Visit Provider Internal Medicine Gastroenterology
DX: Z90.49 Acquired absence of other specified parts of digestive tract (principal)
CPT/HCPCS: 99213

== ENCOUNTER → 2025-08-26 09:29 | Outpatient (BNVA) | payer MEDICARE, MEDICAID, SELFPAY | PROVIDERS: PCP Internal Medicine; Visit Provider Internal Medicine Gastroenterology | DX: K21.9 Gastro-esophageal reflux disease without esophagitis (principal); Z09 Encounter for follow-up examination after completed treatment for conditions other than malignant neoplasm; Z90.49 Acquired absence of other specified parts of digestive tract; Z85.030 Personal history of malignant carcinoid tumor of large intestine; I10 Essential (primary) hypertension | CPT/HCPCS: 99212 ==

== ENCOUNTER 2025-09-05 08:32 | Day surgery (SDC) | payer MEDICARE, MEDICAID, SELFPAY ==
--- NOTE | 2025-09-02 13:10 | P.CONAN_ITS ---
Documented by User: Alexandrea Santana NP 09/02/25 13:14 HPI - Anesthesia Eval Consult details Narrative: 74 yr old male for colonoscopy H/O DVT RUE: He had a repeat right upper extremity venous doppler done again on 01/09/2025 - doppler revealed the presence of an old/chronic thrombus in the right brachial vein that appears stable with no acute deep venous thrombosis otherwise in the right upper extremity -Repeat venous doppler of the RUE in a few days on 07/05/2025 neg for DVT PMFSH Active Problems Active Problems: All Active Problems COVID-19 (Acute) Preoperative examination (Acute) Hypercholesterolemia (Acute) Constipation (Acute) Annual physical exam (Acute) Deep vein thrombosis of right upper extremity (Acute) Admission for fitting of Port-A-Cath (Acute) Status post colon resection (Acute) Colon cancer (Acute) GERD (gastroesophageal reflux disease) (Acute) Severe anemia (Acute) GI (gastrointestinal bleed) (Acute) Adenocarcinoma (Acute) Obesity (BMI 30-39.9) (Acute) Cataracts, bilateral (Acute) Essential hypertension (Acute) Pure hypercholesterolemia (Acute) Recurrent carcinoma of colon (Acute) Past Medical History Medical History GERD (gastroesophageal reflux disease) Hx of deep venous thrombosis Obesity (BMI 30-39.9) Essential hypertension Pure hypercholesterolemia Cataracts, bilateral Wound check, abscess Recurrent carcinoma of colon Adenocarcinoma of transverse colon Family History Family History Mother CVA (cerebral vascular accident) Brother Heart disease Family history of problems with anesthesia: No Surgical History Surgical History History of colectomy (12/22/23) S/P IVC filter History of partial colectomy History of Problems with Anesthesia: No Social History Social History Household Members: Family Housing: House Do you presently have visiting nurse or other home services: No Patient Tobacco Use Status: Never used Tobacco e-Cigarette/Vaping Use: Never Used Use of substances other than those prescribed or required for medical reasons: No Are you DNR?: No Advance Directives: Yes Advance Directives on File: Yes Advance Directives Date on File: 09/05/25 service: No Cognitive needs: No Hearing needs: No Vision needs: No Meds Allergies Allergy/AdvReac Type Severity Reaction Status Date / Time No Known Allergies (No Known Allergy Verified 08/26/25 09:48 Allergies*) Exam Pertinent Lab Results Pertinent Lab Results: Laboratory Tests 08/14/25 07:03 WBC 6.9 RBC 5.12 Hgb 12.4 L Hct 40.0 L Plt Count 238 Sodium 142 Potassium 4.1 Chloride 107 Carbon Dioxide 28 BUN 16 Creatinine 0.94 Assessment and Plan Final Anesthetic Review Family History of Problems with Anesthesia: No History of Problems with Anesthesia: No Documented by User: Philippe Flaherty MD 09/05/25 10:01 [facility] Past Medical History Medical History GERD (gastroesophageal reflux disease) Hx of deep venous thrombosis Obesity (BMI 30-39.9) Essential hypertension Pure hypercholesterolemia Cataracts, bilateral Wound check, abscess Recurrent carcinoma of colon Adenocarcinoma of transverse colon Functional capacity: independent ambulation Family History Family History Mother CVA (cerebral vascular accident) Brother Heart disease Surgical History Surgical History History of colectomy (12/22/23) S/P IVC filter History of partial colectomy Social History Social History Household Members: Family Housing: House Do you presently have visiting nurse or other home services: No Patient Tobacco Use Status: Never used Tobacco e-Cigarette/Vaping Use: Never Used Use of substances other than those prescribed or required for medical reasons: No Are you DNR?: No Advance Directives: Yes Advance Directives on File: Yes Advance Directives Date on File: 09/05/25 service: No Cognitive needs: No Hearing needs: No Vision needs: No Meds Allergies Allergy/AdvReac Type Severity Reaction Status Date / Time No Known Allergies (No Known Allergy Verified 08/26/25 09:48 Allergies*) Exam Exam Date and Time: 09/05/25 Airway TM Dist: >3cm Neck ROM: Full Loose/Missing/Broken Teeth: Yes Heart: normal Lungs: normal Other: normal Assessment and Plan Final Anesthetic Review NPO: Yes ASA Class: II Final Preanesthetic Review: No Changes in Pt Med Stat, Meds/Allgs Chart Reviewed, Consent Obtained/Reviewed and Anes Risks/Benef Reviewed Patient Risk: Low Procedure Risk: Low Anesthetic Plan Anesthetic Plan: MAC: Disposition: Standard PACU
[2025-09-05 08:44] VITALS: BP 166/90; PULSE 111; RESP 16; TEMP 36.5; O2SAT 99
[2025-09-05 08:55] VITALS: BMI 27.9
[2025-09-05 09:03] VITALS: PULSE 109
[2025-09-05] MEDS: Lactated Ringers 1,000 ML 100 ML IVCONT (09:10)
--- NOTE | 2025-09-05 09:20 | MHC.SHP ---
Pre-Procedural Eval Section A - 24 Hr Update-Section A only Date of Service: 09/05/25 Section B - Complete if H&P > 30 days Chief Complaint: Acquired absence of other specified parts of diges Relevant Family History (Specify if Yes): No Relevant Social History: None Present Medications: see Short Stay Collaborative assessment Medical History: Significant History (GERD (gastroesophageal reflux disease) Hx of deep venous thrombosis Obesity (BMI 30-39.9) Essential hypertension Pure hypercholesterolemia Cataracts, bilateral Wound check, abscess Recurrent carcinoma of colon Adenocarcinoma of transverse colon) History of Previous Operations: Relevant previous surgery/procedure and date(s) (History of colectomy (12/22/23) S/P IVC filter History of partial colectomy) Allergies: Allergies Allergy/AdvReac Type Severity Reaction Status Date / Time No Known Allergies (No Known Allergy Verified 08/26/25 09:48 Allergies*) Review of Systems Sugical H&P ROS: Negative: Constitution, Cardiovascular, Respiratory, Neurological, Psychiatric, Hem-Onc, Allergic/Immunologic, Gastrointestinal, Genitourinary, Musculoskeletal, Integumentary, Endocrine and Eyes/Ears/Nose/Throat Exam Surgical H&P Exam: Normal: HEENT, Normal: Heart, Normal: Lungs, Normal: Extremities, Normal: Abdomen, Normal: Skin and Normal: Neurological Plan Diagnosis/Plan: Unchanged I have reviewed the history and physical and performed a pertinent physical examination on my patient. No changes have occurred unless specified. Time Spent With Patient Time: Total time managing care of this patient today ____ minutes.
--- NOTE | 2025-09-05 10:24 | P.OPN-COLO_ITS ---
Colonoscopy Operative Note Operative Note Date of Service: 09/05/25 Narrative: Operative Information Procedure Description: Colonoscopy Indication: Surveillance, hx of colon cancer Anesthesia: MAC COLONOSCOPY Instrument: Olympus variable stiffness pediatric scope 190L Colonoscopy Monitoring: Vital signs and clinical assessment, continuous EKG monitoring, Pulse oximetry, Carbon Dioxide monitoring and blood pressure monitoring were done throughout the procedure. Colon withdrawal time was 9 minutes. Procedure: The patient was placed in the left lateral decubitis position and pre-procedure medications were administered. After a digital rectal examination of the ano-rectum, the video colonoscope was inserted into the rectum and advanced through the colon to the cecum/TI. The colonoscope was slowly withdrawn in a retrograde panoramic fashion and the colon mucosa was carefully examined including a retroflexed view of the rectum. Findings and interventions are described below. Procedure Difficulty: easy Findings: Terminal Ileum-normal Cecum:normal Ascending Colon: normal Transverse Colon - n/a Descending Colon: colo colonic anastomosis noted and around it some induration and raiosed polypoid tissue, about 6-9 mm, removed with cold snare and then cold forceps used to bx indurated tissue. One staple seen as well Sigmoid Colon: normal Rectum: Retroflexion with small internal hemorrhoids seen, grade I Anorectum - normal Intervention: cold snare and cold forceps bx Colon preparation: [place] Bowel Preparation Scale Right colon; 1-2 Transverse colon: - Left colon; 2 (0 = Unprepared colon segment with mucosa not seen due to solid stool that ca nnot be cleared. 1 = Portion of mucosa of the colon segment seen, but other areas of the colon segment not well seen due to staining, residual stool and/or opaque liquid. 2 = Minor amount of residual staining, small fragments of stool and/or opaque liquid, but mucosa of colon segment seen well. 3 = Entire mucosa of colon segment seen well with no residual staining, small fragments of stool or opaque liquid) Impression and Post Procedure Diagnosis: colon polyp x1 internal hemorrhoids Plan: High fiber diet leaflet Avoid straining at stool, epsom salts and sitz bath, anusol supps or cream Repeat Colonoscopy in 1-2 years or earlier if clinically indicated Above findings were reviewed with the patient and relevant handouts were provided if indicated.
[2025-09-05 10:29] VITALS: BP 110/70; RESP 16; TEMP 36.3; O2SAT 97
[2025-09-05 10:40] VITALS: BP 112/77; RESP 16; TEMP 36.1; O2SAT 97
== END 2025-09-05 11:06 | disposition home or self-care (01) ==
PROVIDERS: PCP Internal Medicine; Visit Provider Internal Medicine Gastroenterology
PROC: 0DJD8ZZ Inspection of Lower Intestinal Tract, Via Natural or Artificial Opening Endoscopic (ICD-10-PCS; CPT 45378; principal; 2025-09-05 11:30)
DX: Z12.11 Encounter for screening for malignant neoplasm of colon (principal); Z85.038 Personal history of other malignant neoplasm of large intestine; Z90.49 Acquired absence of other specified parts of digestive tract; K64.0 First degree hemorrhoids; K63.5 Polyp of colon
CPT/HCPCS: 45385; 88305; J2003; J2704; J3010

== ENCOUNTER → 2025-09-05 08:32 | Outpatient (BNV) | payer MEDICARE, MEDICAID, SELFPAY | PROVIDERS: PCP Internal Medicine; Visit Provider Internal Medicine Gastroenterology | DX: Z12.11 Encounter for screening for malignant neoplasm of colon (principal); Z85.038 Personal history of other malignant neoplasm of large intestine; D12.4 Benign neoplasm of descending colon; K64.0 First degree hemorrhoids | CPT/HCPCS: 45385 ==

== ENCOUNTER 2025-10-22 07:46 | Outpatient (REF) | payer MEDICARE, MEDICAID, SELFPAY ==
[2025-10-22 08:17] LABS: MANUAL DIFF FLAG NO
[2025-10-22 08:51] LABS: Hematocrit 41.3 % (42.0-52.0); Hemoglobin 12.8 g/dl (14.0-18.0); Imm Gran Abs Auto 0.02 X10*3/uL (0.00-0.03); Imm Gran Pct Auto 0.3 % (0.0-0.4); Lymphocytes Absolute Auto 2.3 X10*3/uL (1.2-4.9); Mean Corpuscular HGB Conc 31.0 g/dl (31.0-36.0); Mean Corpuscular Hemoglobin 23.9 pg (27.0-33.0); Mean Corpuscular Volume 77.1 fL (80.0-98.0); NRBC Abs Auto 0.000 X10*3/uL (0.0-0.012); NRBC Pct Auto 0.0 /100WBC (0.0-0.2); Platelet Count 229 X10*3/uL (160-400); Red Blood Count 5.36 X10*6/uL (4.60-5.80); White Blood Count 6.8 X10*3/uL (4.8-10.8)
[2025-10-22 08:59] LABS: Appearance Urine Clear; Glucose Urine UA Negative (Negative); PH 7.0 (5.0-9.0); Specific Gravity - Urine 1.010 (1.005-1.025)
[2025-10-22 10:04] LABS: Alanine Aminotransferase 22 U/L (0-40); Albumin Level 4.6 g/dL (3.5-5.0); Alkaline Phosphatase 97 U/L (39-117); Anion Gap 11 (12-20); Aspartate Amino Transferase 29 U/L (5-37); Blood Urea Nitrogen 18 mg/dL (9-16); Calcium 8.9 mg/dL (8.4-10.2); Carbon Dioxide 28 mmol/L (22-29); Chloride 107 mmol/L (96-108); Cholesterol 208 mg/dL (<200); Estimated Glomerular Filt Rate > 60; HDL Cholesterol 46 mg/dL (>40); Potassium 4.0 mmol/L (3.3-5.1); Sodium 142 mmol/L (135-145); Total Protein 7.7 g/dL (6.5-8.0); Triglycerides 119 mg/dL (<150)
== END 2025-10-22 07:47 | disposition home or self-care (01) ==
LOC: HO.LAB 07:46
PROVIDERS: PCP Internal Medicine; Visit Provider Internal Medicine
DX: R30.0 Dysuria (principal); D64.9 Anemia, unspecified; E78.00 Pure hypercholesterolemia, unspecified; E55.9 Vitamin D deficiency, unspecified
CPT/HCPCS: 36415; 80053; 80061; 81003; 82306; 84443; 85025